=== PATIENT | male | born 1960 | race Caucasian/White ===

== ENCOUNTER 2018-08-28 01:49 | Outpatient (RCR) | payer OTHER, SELFPAY ==
[2018-08-12 11:58] LABS: Abs Immature Grans 0.06 k/cumm (0.0-0.09); Absolute Basophil Count 0.02 k/cumm (0.0-0.2); Absolute Eosinophil Count 0.11 k/cumm (0.0-0.7); Absolute Lymphocyte Count 1.35 k/cumm (1.2-3.4); Absolute Neutrophil Count 4.97 k/cumm (1.2-6.7); Basophils % 0.3; Eosinophils % 1.6; HCT 34.6 % (40.0-50.0); HGB 10.3 g/dL (13.5-17.5); Immature Grans % 0.9; Lymphocytes % 19.5; Mean Corp. HGB Concentration 29.8 g/dL (32.0-36.0); Mean Corpuscular Hemoglobin 26.9 pg (27.0-33.0); Mean Corpuscular Volume 90.3 fL (80-95); Mean Platelet Volume 10.4 fL (8.0-11.0); Monocytes % 5.8; Neutrophils % 71.9; Platelet Count 142 x1000/uL (130-400); RBC 3.83 m/cumm (4.50-6.00); RBC Distribution Width 17.4 % (11.8-14.1); White Blood Cell Count 6.91 k/cumm (4.4-10.8)
[2018-08-12] MEDS: Normal Saline Flush 10 ML SYR IVP (11:58)
[2018-08-12] MEDS: Heparin 500 UNITS/5 ML SYRINGE IV (11:59)
[2018-08-12 12:06] LABS: ALT 28 U/L (12-78); AST 18 U/L (15-37); Alkaline Phosphatase 93 U/L (46-116); Anion Gap 10.5 mmol/L (3-11); BUN 10 mg/dL (7-18); Bilirubin, Total 0.3 mg/dL (0.2-1.0); CO2 28.5 mmol/L (21.0-32.0); Calcium 8.9 mg/dL (8.5-10.1); Chloride 101 mmol/L (98-107); Glucose 141 mg/dL (70-100); Magnesium 1.8 mg/dL (1.8-2.4); Potassium 3.7 mmol/L (3.5-5.1); Sodium 140 mmol/L (136-145)
[2018-08-13 15:05] LABS: CEA 3.3 ng/ml
[2018-08-14 11:49] LABS: CA 19-9 1236 U/mL (<35)
[2018-08-28] MEDS: Normal Saline Flush 10 ML SYR IVP (07:18)
[2018-08-28 07:36] LABS: Abs Immature Grans 0.31 k/cumm (0.0-0.09); HCT 35.5 % (40.0-50.0); HGB 10.9 g/dL (13.5-17.5); Mean Corp. HGB Concentration 30.7 g/dL (32.0-36.0); Mean Corpuscular Hemoglobin 26.8 pg (27.0-33.0); Mean Corpuscular Volume 87.2 fL (80-95); Mean Platelet Volume 10.4 fL (8.0-11.0); Platelet Count 185 x1000/uL (130-400); RBC 4.07 m/cumm (4.50-6.00); RBC Distribution Width 17.2 % (11.8-14.1); White Blood Cell Count 9.42 k/cumm (4.4-10.8)
[2018-08-28 07:47] LABS: ALT 37 U/L (12-78); AST 19 U/L (15-37); Alkaline Phosphatase 101 U/L (46-116); Anion Gap 15.3 mmol/L (3-11); BUN 20 mg/dL (7-18); Bilirubin, Total 0.4 mg/dL (0.2-1.0); CO2 24.7 mmol/L (21.0-32.0); CREATININE 0.96 mg/dL (0.70-1.30); Calcium 9.1 mg/dL (8.5-10.1); Chloride 98 mmol/L (98-107); Glucose 359 mg/dL (70-100); Sodium 138 mmol/L (136-145)
[2018-08-28 07:53] LABS: Absolute Lymphocyte Count 1.22 k/cumm (1.2-3.4); Absolute Monocyte Count 0.28 k/cumm (0.11-0.7); Absolute Neutrophil Count 7.72 k/cumm (1.2-6.7); Anisocytosis 1+; Atypical Lymphocytes % 2; Diff Comment Manual Differential; Polychromasia Present
[2018-08-28 07:54] LABS: Poikilocytes 1+
[2018-08-28 09:18] LABS: Magnesium 1.6 mg/dL (1.8-2.4)
[2018-08-31 11:42] LABS: CEA 2.9 ng/ml
[2018-08-31 13:34] LABS: CA 19-9 887 U/mL (<35)
== END 2018-08-30 23:59 | disposition home or self-care (01) ==
LOC: INF 01:49
PROVIDERS: PCP Nurse Practitioner Primary Care; Visit Provider Internal Medicine Hematology & Oncology
DX: C25.9 Malignant neoplasm of pancreas, unspecified (principal); C78.7 Secondary malignant neoplasm of liver and intrahepatic bile duct; Z45.2 Encounter for adjustment and management of vascular access device
CPT/HCPCS: 36591; 80053; 82378; 83735; 85025; 86301

== ENCOUNTER 2018-09-29 01:13 | Outpatient (RCR) | payer OTHER, SELFPAY ==
[2018-09-10] MEDS: Normal Saline Flush 10 ML SYR IVP (07:30)
[2018-09-10 07:59] LABS: Abs Immature Grans 0.07 k/cumm (0.0-0.09); Absolute Basophil Count 0.02 k/cumm (0.0-0.2); Absolute Monocyte Count 0.22 k/cumm (0.11-0.7); Absolute Neutrophil Count 5.57 k/cumm (1.2-6.7); Basophils % 0.3; HCT 35.8 % (40.0-50.0); HGB 10.8 g/dL (13.5-17.5); Mean Corp. HGB Concentration 30.2 g/dL (32.0-36.0); Mean Corpuscular Hemoglobin 26.7 pg (27.0-33.0); Mean Corpuscular Volume 88.4 fL (80-95); Mean Platelet Volume 10.7 fL (8.0-11.0); Monocytes % 3.3; Neutrophils % 83.4; Platelet Count 139 x1000/uL (130-400); RBC 4.05 m/cumm (4.50-6.00); RBC Distribution Width 17.8 % (11.8-14.1); White Blood Cell Count 6.68 k/cumm (4.4-10.8)
[2018-09-10 08:10] LABS: ALT 37 U/L (12-78); AST 21 U/L (15-37); Albumin 3.8 g/dL (3.4-5.0); Alkaline Phosphatase 95 U/L (46-116); Anion Gap 13.5 mmol/L (3-11); BUN 15 mg/dL (7-18); Bilirubin, Total 0.5 mg/dL (0.2-1.0); CO2 25.5 mmol/L (21.0-32.0); Calcium 8.7 mg/dL (8.5-10.1); Chloride 99 mmol/L (98-107); Glucose 431 mg/dL (70-100); Potassium 4.2 mmol/L (3.5-5.1); Sodium 138 mmol/L (136-145); Total Protein 7.6 g/dL (6.4-8.2)
[2018-09-10 10:17] LABS: Magnesium 1.7 mg/dL (1.8-2.4)
[2018-09-11 11:37] LABS: CA 19-9 560 U/mL (<35)
[2018-09-11 12:22] LABS: CEA 2.3 ng/ml
[2018-09-25 08:11] LABS: Abs Immature Grans 0.07 k/cumm (0.0-0.09); Absolute Basophil Count 0.02 k/cumm (0.0-0.2); Absolute Eosinophil Count 0.02 k/cumm (0.0-0.7); Absolute Lymphocyte Count 0.73 k/cumm (1.2-3.4); Absolute Monocyte Count 0.24 k/cumm (0.11-0.7); Absolute Neutrophil Count 4.66 k/cumm (1.2-6.7); Basophils % 0.3; Eosinophils % 0.3; HCT 35.6 % (40.0-50.0); HGB 10.9 g/dL (13.5-17.5); Immature Grans % 1.2; Lymphocytes % 12.7; Mean Corp. HGB Concentration 30.6 g/dL (32.0-36.0); Mean Corpuscular Hemoglobin 26.7 pg (27.0-33.0); Mean Corpuscular Volume 87.3 fL (80-95); Mean Platelet Volume 9.8 fL (8.0-11.0); Monocytes % 4.2; Neutrophils % 81.3; Platelet Count 152 x1000/uL (130-400); RBC 4.08 m/cumm (4.50-6.00); RBC Distribution Width 17.9 % (11.8-14.1); White Blood Cell Count 5.74 k/cumm (4.4-10.8)
[2018-09-25] MEDS: Normal Saline Flush 10 ML SYR IVP (08:11)
[2018-09-25 08:28] LABS: ALT 37 U/L (12-78); AST 19 U/L (15-37); Albumin 3.9 g/dL (3.4-5.0); Alkaline Phosphatase 91 U/L (46-116); Anion Gap 13.5 mmol/L (3-11); BUN 19 mg/dL (7-18); Bilirubin, Total 0.3 mg/dL (0.2-1.0); CO2 24.5 mmol/L (21.0-32.0); CREATININE 0.92 mg/dL (0.70-1.30); Calcium 8.6 mg/dL (8.5-10.1); Chloride 101 mmol/L (98-107); Glucose 345 mg/dL (70-100); Potassium 4.2 mmol/L (3.5-5.1); Sodium 139 mmol/L (136-145); Total Protein 7.6 g/dL (6.4-8.2)
[2018-09-25 08:36] LABS: Magnesium 1.5 mg/dL (1.8-2.4)
[2018-09-28 09:53] LABS: CEA 2.1 ng/ml
[2018-09-28 10:38] LABS: CA 19-9 511 U/mL (<35)
== END 2018-09-29 23:59 | disposition home or self-care (01) ==
LOC: INF 01:13
PROVIDERS: PCP Nurse Practitioner Primary Care; Visit Provider Internal Medicine Hematology & Oncology
DX: C25.9 Malignant neoplasm of pancreas, unspecified (principal); C78.7 Secondary malignant neoplasm of liver and intrahepatic bile duct; Z45.2 Encounter for adjustment and management of vascular access device
CPT/HCPCS: 36591; 80053; 82378; 83735; 85025; 86301

== ENCOUNTER 2018-10-22 01:59 | Outpatient (RCR) | payer OTHER, SELFPAY ==
[2018-10-12 07:56] LABS: Abs Immature Grans 0.28 k/cumm (0.0-0.09); HCT 35.8 % (40.0-50.0); HGB 10.8 g/dL (13.5-17.5); Mean Corp. HGB Concentration 30.2 g/dL (32.0-36.0); Mean Corpuscular Hemoglobin 26.9 pg (27.0-33.0); Mean Corpuscular Volume 89.3 fL (80-95); Mean Platelet Volume 10.2 fL (8.0-11.0); Platelet Count 123 x1000/uL (130-400); RBC 4.01 m/cumm (4.50-6.00); RBC Distribution Width 18.4 % (11.8-14.1); White Blood Cell Count 7.01 k/cumm (4.4-10.8)
[2018-10-12 08:07] LABS: ALT 54 U/L (12-78); AST 33 U/L (15-37); Alkaline Phosphatase 90 U/L (46-116); Anion Gap 14.2 mmol/L (3-11); BUN 14 mg/dL (7-18); Bilirubin, Total 0.4 mg/dL (0.2-1.0); CO2 24.8 mmol/L (21.0-32.0); CREATININE 1.01 mg/dL (0.70-1.30); Chloride 99 mmol/L (98-107); Glucose 417 mg/dL (70-100); Magnesium 1.3 mg/dL (1.8-2.4); Sodium 138 mmol/L (136-145); Total Protein 7.7 g/dL (6.4-8.2)
[2018-10-12 08:37] LABS: Absolute Neutrophil Count 5.89 k/cumm (1.2-6.7)
[2018-10-12 08:38] LABS: Absolute Lymphocyte Count 0.77 k/cumm (1.2-3.4); Absolute Monocyte Count 0.14 k/cumm (0.11-0.7); Anisocytosis 2+; Atypical Lymphocytes % 2; Diff Comment Manual Differential; Hypochromasia 1+; Poikilocytes 2+
[2018-10-14 12:35] LABS: CA 19-9 1335 U/mL (<35)
[2018-10-22] MEDS: Normal Saline Flush 10 ML SYR IVP (14:30)
[2018-10-22] MEDS: Heparin 500 UNITS/5 ML SYRINGE IV (14:30)
[2018-10-22 15:09] LABS: Abs Immature Grans 0.17 k/cumm (0.0-0.09); Absolute Basophil Count 0.03 k/cumm (0.0-0.2); Absolute Eosinophil Count 0.08 k/cumm (0.0-0.7); Absolute Lymphocyte Count 1.61 k/cumm (1.2-3.4); Absolute Monocyte Count 0.85 k/cumm (0.11-0.7); Absolute Neutrophil Count 8.05 k/cumm (1.2-6.7); Basophils % 0.3; Eosinophils % 0.7; HCT 34.4 % (40.0-50.0); HGB 10.8 g/dL (13.5-17.5); Immature Grans % 1.6; Lymphocytes % 14.9; Mean Corp. HGB Concentration 31.4 g/dL (32.0-36.0); Mean Corpuscular Hemoglobin 27.6 pg (27.0-33.0); Mean Corpuscular Volume 87.8 fL (80-95); Mean Platelet Volume 10.8 fL (8.0-11.0); Monocytes % 7.9; Neutrophils % 74.6; Platelet Count 126 x1000/uL (130-400); RBC 3.92 m/cumm (4.50-6.00); RBC Distribution Width 19.3 % (11.8-14.1); White Blood Cell Count 10.79 k/cumm (4.4-10.8)
[2018-10-22 15:17] LABS: ALT 48 U/L (12-78); AST 23 U/L (15-37); Albumin 3.9 g/dL (3.4-5.0); Alkaline Phosphatase 120 U/L (46-116); Anion Gap 12.3 mmol/L (3-11); BUN 13 mg/dL (7-18); Bilirubin, Total 0.3 mg/dL (0.2-1.0); CO2 27.7 mmol/L (21.0-32.0); CREATININE 0.93 mg/dL (0.70-1.30); Calcium 8.7 mg/dL (8.5-10.1); Chloride 98 mmol/L (98-107); Glucose 300 mg/dL (70-100); Magnesium 1.4 mg/dL (1.8-2.4); Potassium 3.7 mmol/L (3.5-5.1); Sodium 138 mmol/L (136-145); Total Protein 7.5 g/dL (6.4-8.2)
[2018-10-23 10:08] LABS: CEA 2.5 ng/ml
[2018-10-23 12:14] LABS: CA 19-9 2707 U/mL (<35)
== END 2018-10-30 23:59 | disposition home or self-care (01) ==
LOC: INF 01:59
PROVIDERS: PCP Nurse Practitioner Primary Care; Visit Provider Internal Medicine Hematology & Oncology
DX: C25.9 Malignant neoplasm of pancreas, unspecified (principal); C78.7 Secondary malignant neoplasm of liver and intrahepatic bile duct; Z45.2 Encounter for adjustment and management of vascular access device
CPT/HCPCS: 36591; 80053; 82378; 83735; 85025; 86301

== ENCOUNTER 2018-11-21 16:47 | Inpatient (IN) | payer OTHER, SELFPAY ==
[2018-11-21 16:52] VITALS: BP 130/67; PULSE 123; RESP 16; TEMP 36.7; O2SAT 95
--- NOTE | 2018-11-21 17:03 | DI.RAD_ITS ---
SYMPTOM/DIAGNOSIS: TACHYCARDIA, DRY HEAVING PORTABLE CHEST: There are no prior comparison exams. The lungs are not well inflated but appear grossly clear. There is a portal overlying the right chest with the tip projecting in the upper right atrium. The heart size is normal. IMPRESSION: No acute abnormality
--- NOTE | 2018-11-21 17:12 | W.ED.GENAD ---
Discharge Plan Disposition Patient Disposition: [facility] INPATIENT Condition: Improving Discharge Details Chief Complaint: Dizzy/Sync Clinical Impression: Sepsis, Bacteremia, Dental infection, Acute hypokalemia, Hypomagnesemia, Immunosuppression due to drug therapy Primary Care Provider: Rosalva Ingram ED Provider: Onur Arce Home Meds and New Rx's Prescriptions: No Action enoxaparin [Lovenox] 80 mg/0.8 mL Syringe 75 mg subcut BID RF: 0 metformin 500 mg Tablet 500 mg PO BID RF: 0 atorvastatin 80 mg Tablet 80 mg PO DAILY RF: 0 ondansetron HCl 2 mg/mL Solution 4 mg RF: 0 omeprazole 40 mg Capsule,Delayed Release(Dr/Ec) 40 mg PO BID RF: 0 amlodipine 10 mg Tablet 10 mg PO DAILY RF: 0 hydrochlorothiazide 25 mg Tablet 25 mg PO DAILY RF: 0 fluoxetine 20 mg Capsule 20 mg PO DAILY RF: 0 lactobacillus combo #5 150 mg (2 billion cell) Tablet,Delayed Release (Dr/Ec) 150 mg PO DAILY RF: 0 Lantus U-100 Insulin 100 unit/mL Solution 75 unit SUBCUT BID RF: 0 Novolog U-100 Insulin aspart 100 unit/mL Solution RF: 0 lorazepam 1 mg Tablet 1 mg PO Q4H PRN PRNRF: 0 docusate sodium 100 mg Capsule 100 mg PO BID RF: 0 loratadine 10 mg Tablet 10 mg PO DAILY RF: 0 prochlorperazine maleate 5 mg Tablet RF: 0 Medical Decision Making This is a pleasant 58-year-old male with a past medical history of stage IV pancreatic cancer with metastases to the bones, who recently had a lack of improvement with his current chemotherapy medication, and was thus switched to a new chemotherapy 3 days ago, forgemcitabine and abraxane. Since then he has had dry heaving, nausea, and malaise. He has not been eating and drinking well. He denies any fever at home. Of note he was recently diagnosed with a dental abscess and started on amoxicillin a few days ago. He has been taking this as directed. He denies any cough, dysuria, abdominal pain, chest pain or chest heaviness. Physical exam is notably unremarkable, no significant abnormalities aside for dry mucous membranes, and tachycardia. Laboratory work-up has returned and demonstrates no white count but a notably elevated lactate at 2.4, mild left shift, no signs of neutropenia. Potassium is slightly at 3.2, renal function stable, magnesium low at 1.2. Troponin EKG benign. Urinalysis negative for leuk esterase and negative for nitrates. No clear evidence of source from work-up, chest x-ray negative for pneumonia. Here the patient is febrile. With his immunosuppression from chemotherapy, his notably elevated lactate, his fever and tachycardia I feel is sepsis is most likely secondary to bacteremia, potentially from his initially infected tooth. No evidence of abscess at this time. Currently will start on vancomycin and Zosyn for treatment of bacteremia, blood cultures have been performed. Patient will need admission for further evaluation and IV antibiotics. I discussed the case with Dr. evangelista, he agrees with the assessment and plan and has asked that we do place brief admission orders. I have extensively reviewed the treatment plan with the patient. I have addressed all patient concerns at this time. I have also discussed the plan with the admitting physician and they agree with the current assessment and plan and have agreed to assume responsibility for the patient. All parties demonstrate verbal understanding and agreement with our assessment and plan at this time. FINDINGS: Right-sided Port-A-Cath in good position. The lung vitale are clear bilaterally. No focal pulmonary consolidation is present. The cardiac silhouette is within normal limits. The costophrenic angles are sharp. The bony structures appear unremarkable. IMPRESSION: No evidence of acute cardiopulmonary disease. Dictated and Authenticated by: Klever Carmona MD. Ordering:KAPIL Mohr MD EKG 16: 55 Rate 124, intervals normal, sinus tachycardia, no significant ST elevations or depressions, no T wave inversions. No significant Q waves. HPI General Date/Time Provider Initiated Documentation: 11/21/18 16:47. HPI Narrative: This is a 58-year-old male with a past medical history of diabetes, pancreatic and liver cancer, previous blood clots on Lovenox, who presents today for evaluation of dry heaving, and what he states his dehydration. He started a new chemotherapy 3 days ago, forgemcitabine and abraxane, and since then has had nausea and dry heaving but no vomiting. He has had no diarrhea. He has been eating and drinking less because of his malaise. He denies any abdominal or chest pain. He states that his general feelings of malaise have worsened over the last 24 hours. He denies any history of [place], or stroke. He does have a history of PE for which he takes his Lovenox. He denies any chest pressure, chest heaviness, arm neck or shoulder pain. He denies any numbness tingling. He states that he mainly feels dehydrated. He has no other complaints at this time. He is a poor historian. Also of note the patient later brought up that he was recently started on amoxicillin a few days ago for suspected infected tooth in the right lower molar Related Data Home Medications Medication Instructions Recorded Confirmed amlodipine 10 mg PO DAILY 11/21/18 11/21/18 atorvastatin 80 mg PO DAILY 11/21/18 11/21/18 docusate sodium 100 mg PO BID 11/21/18 11/21/18 enoxaparin [Lovenox] 75 mg SUBCUT BID 11/21/18 11/21/18 fluoxetine 20 mg PO DAILY 11/21/18 11/21/18 hydrochlorothiazide 25 mg PO DAILY 11/21/18 11/21/18 insulin aspart U-100 [Novolog 11/21/18 U-100 Insulin aspart] insulin glargine [Lantus U-100 75 unit SUBCUT BID 11/21/18 11/21/18 Insulin] lactobacillus combo #5 150 mg PO DAILY 11/21/18 11/21/18 loratadine 10 mg PO DAILY 11/21/18 11/21/18 lorazepam 1 mg PO Q4H PRN PRN 11/21/18 11/21/18 metformin 500 mg PO BID 11/21/18 11/21/18 omeprazole 40 mg PO BID 11/21/18 11/21/18 ondansetron HCl 4 mg 11/21/18 prochlorperazine maleate 11/21/18 Allergies Allergy/AdvReac Type Severity Reaction Status Date / Time No Known Allergies Allergy Unverified 11/21/18 16:56 General Stated Complaint: Dizzy/Sync JUMA: 2 Review of Systems Review of Systems All systems reviewed & are unremarkable except as noted in HPI and below PFSH Medical History Liver cancer (Acute) Pancreatic cancer (Acute) Diabetes (Chronic) Social History Do you feel safe at home: Yes Do you feel safe in your relationship?: Yes Exam Narrative Exam Narrative: 1.Const: Well-nourished, Well-developed, appearing stated age 2.Eyes: PERRL, no conjunctival injection, and symmetrical lids. 3.ENT: Atraumatic external nose and ears. Notably dry MM. Neck: Symmetric, trachea midline, No thyromegaly. Dentition demonstrates mild dental caries in the right lower molars, no evidence of. Dental abscess. 4.CVS: +S1/S2, No murmurs or gallops. Peripheral pulses 2+ and equal in all extremities. Brisk capillary refill in all extremities. 5.RESP: Unlabored respiratory effort. Clear to auscultation bilaterally. No wheezes rales or rhonchi 6.GI: Soft, Nontender/Nondistended, No hepatosplenomegaly. No guarding or rebound. 7.MSK: Normocephalic/Atraumatic, Extremities w/o deformity or ttp No cyanosis or clubbing, Normal movement of all extremities 8.Skin: Warm, Dry. No rashes or lesions. 9.Neuro: biopharmaceutical rep II-XII grossly intact. Sensation grossly intact, no focal neurologic deficits. 10.Psych: (AAO) x3. Appropriate mood and affect Course Vital Signs Temperature 36.7 C 11/21/18 16:52 Pulse 123 H 11/21/18 16:52 Respiratory Rate 16 11/21/18 16:52 Blood Pressure 130/67 11/21/18 16:52 Pulse Oximetry 95 11/21/18 16:52 Temperature 36.7 C 11/21/18 16:52 Temperature Source Temporal Artery Scan 11/21/18 16:52 Pulse 123 H 11/21/18 16:52 Respiratory Rate 16 11/21/18 16:52 Respiratory Effort 11/21/18 16:55 Blood Pressure 130/67 11/21/18 16:52 Blood Pressure Position Supine 11/21/18 16:52 Pulse Oximetry 95 11/21/18 16:52 Oxygen Delivery Method Room Air 11/21/18 16:52 Oxygen Flow Rate 0 11/21/18 16:52
[2018-11-21 17:18] VITALS: BP 138/84; PULSE 88; RESP 18; TEMP 36.7; O2SAT 98
[2018-11-21 17:18] LABS: Abs Immature Grans 0.03 k/cumm (0.0-0.09); Absolute Basophil Count 0.01 k/cumm (0.0-0.2); Absolute Eosinophil Count 0.01 k/cumm (0.0-0.7); Absolute Lymphocyte Count 0.57 k/cumm (1.2-3.4); Absolute Monocyte Count 0.07 k/cumm (0.11-0.7); Absolute Neutrophil Count 9.61 k/cumm (1.2-6.7); Basophils % 0.1; Eosinophils % 0.1; HCT 28.7 % (40.0-50.0); HGB 9.2 g/dL (13.5-17.5); Immature Grans % 0.3; Lymphocytes % 5.5; Mean Corp. HGB Concentration 32.1 g/dL (32.0-36.0); Mean Corpuscular Hemoglobin 28.7 pg (27.0-33.0); Mean Corpuscular Volume 89.4 fL (80-95); Mean Platelet Volume 9.7 fL (8.0-11.0); Monocytes % 0.7; Neutrophils % 93.3; RBC 3.21 m/cumm (4.50-6.00)
[2018-11-21] MEDS: Normal Saline 1,000 ML 1000 ML IV ×2 (17:20→18:55)
[2018-11-21] MEDS: Ondansetron 4 MG/2 ML VIAL IVP (17:20)
[2018-11-21 17:23] VITALS: TEMP 38.7
[2018-11-21 17:32] LABS: INR 1.1 (0.9-1.1); PTT Activated 72.2 sec (21.0-31.4); Prothrombin Time 11.4 sec (9.3-11.0)
[2018-11-21 17:39] VITALS: TEMP 38.7
[2018-11-21] MEDS: Acetaminophen 500 MG TAB 1000 MG PO (17:39)
[2018-11-21 17:43] LABS: ALT 55 U/L (12-78); AST 38 U/L (15-37); Albumin 3.4 g/dL (3.4-5.0); Alkaline Phosphatase 75 U/L (46-116); Anion Gap 13.9 mmol/L (3-11); BUN 13 mg/dL (7-18); Bilirubin, Total 0.7 mg/dL (0.2-1.0); CO2 24.1 mmol/L (21.0-32.0); CREATININE 0.82 mg/dL (0.70-1.30); Calcium 8.2 mg/dL (8.5-10.1); Chloride 99 mmol/L (98-107); Glucose 283 mg/dL (70-100); Lipase 33 U/L (73-393); NT-proBNP 370 pg/mL; Potassium 3.2 mmol/L (3.5-5.1); Sodium 137 mmol/L (136-145); TSH (W/Ref FT4) 1.77 uIU/mL (0.358-3.74); Total Protein 7.2 g/dL (6.4-8.2)
[2018-11-21 17:44] LABS: Troponin I < 0.05 ng/mL (0.00-0.06)
[2018-11-21 17:45] LABS: Anisocytosis 2+; Diff Comment RBC Morph Reviewed; Platelet Count 88 x1000/uL (130-400)
--- NOTE | 2018-11-21 17:53 | DI.VRAD_ITS ---
EXAM: XR Chest, 1 View EXAM DATE/TIME: 11/21/2018 5:04 PM CLINICAL HISTORY: 58 years old, male; Shortness of breath TECHNIQUE: Imaging protocol: XR of the chest, 1 view. COMPARISON: No relevant prior studies available. FINDINGS: Right-sided Port-A-Cath in good position. The lung vitale are clear bilaterally. No focal pulmonary consolidation is present. The cardiac silhouette is within normal limits. The costophrenic angles are sharp. The bony structures appear unremarkable. IMPRESSION: No evidence of acute cardiopulmonary disease. Dictated and Authenticated by: Klever Carmona MD. Ordering:KAPIL Mohr MD
[2018-11-21 17:56] LABS: Lactate-non-spesis 2.4 mmol/l (0.6-1.4)
[2018-11-21] MEDS: POTASSIUM CHLORIDE 20 MEQ/100 ML BAG 50 MEQ IVPB (18:56)
[2018-11-21 18:57] LABS: Bilirubin Small (Negative); Blood Trace-intact (Negative); Clarity Clear; Glucose 500 mg/dL (Negative); Ketones Trace mg/dL (Negative); Leukocyte Esterase Negative (Negative); Nitrite Negative (Negative); Urobilinogen 0.2 EU/dL (Up TO 0.2)
[2018-11-21 18:59] LABS: Magnesium 1.2 mg/dL (1.8-2.4)
[2018-11-21 19:11] LABS: Bacteria Rare HPF (Negative); C & S Indicated? Yes; Casts Negative LPF (Negative); Crystals Negative HPF (Negative); Epithelial Cells Few HPF (Negative); Mucus Moderate (Negative); RBC 0-2 (0-2)
[2018-11-21 20:20] VITALS: BP 110/71; PULSE 84; RESP 16; TEMP 37; O2SAT 99
[2018-11-21] MEDS: PIPERACILLIN/TAZO 3.375 GM in Normal Saline 50 ML IVPB (21:01)
[2018-11-21] MEDS: MAGNESIUM SULFATE 1 GM/100 ML BAG IV ×2 (22:14→23:04)
[2018-11-21] MEDS: Acetaminophen 325 MG TAB PO (22:14)
[2018-11-21] MEDS: Potassium Chloride 20 MEQ TABCR 40 MEQ PO (22:15)
--- NOTE | 2018-11-21 22:29 | HPE_ITS ---
Date of service: 11/21/18 Time of Service: 22:01 Assessment and Plan (1) Sepsis: Current visit: Yes Status: Acute Patient presents with high fever and some soft blood pressures. There is an obvious concern for bacteremia because of his relative immune compromised state from active chemotherapy. Blood cultures are pending. Empirically covered with Zosyn and vancomycin pending blood culture results. Patient has stabilized with IV fluids. Will continue on IV fluids and monitor for signs of further sepsis with frequent vital signs. At this point appears to be stable enough to be monitored on MedSurg. (2) Nausea & vomiting: Current visit: Yes Status: Acute Anorexia with nausea likely secondary to chemotherapy. He states his been started on a new chemotherapeutic agent recently because of the discovery of more widespread metastasis. Will give as needed antiemetics. (3) Dental abscess: Current visit: Yes Status: Acute He states he has a dental abscess from a cracked tooth related to intubation for a procedure done at [facility] in [facility]. He is been on amoxicillin for about 4 days now. There is not much on exam to suggest any kind of severe infection there. At this point this is the only real source for his potential bacteremia. Continue with empiric antibiotic coverage (4) Tali-Aguilar tear: Current visit: Yes Status: Resolved He states he had a severe upper GI bleed requiring transfusion, hemoglobin as low as 4.8, per patient. He is on PPI therapy. No evidence of bleeding at this time. (5) Diabetes: Current visit: Yes Status: Chronic Poorly controlled diabetic. He is on high-dose Lantus insulin. We will put him on resistant sliding scale coverage. He states he takes his much as 100 units of NovoLog when his blood sugars are out of control. (6) Liver cancer: Current visit: Yes Status: Acute Pancreatic cancer metastatic to his liver. Liver function tests are not all that abnormal. Overall synthetic function and is good. No evidence of overt liver failure at this time. (7) Pancreatic cancer: Current visit: Yes Status: Acute Diagnosed with pancreatic Cancer in April 2018. A nodule was discovered and further work-up revealed it had already spread. He is on second line chemotherapeutic agents. Stage IV pancreatic cancer with a overall very poor prognosis but his overall function and condition is good at this time. He is a full code. He has not been evaluated by palliative care. (8) Hypokalemia: Current visit: Yes Status: Acute Potassium low at 3.2. He received IV replacement. We will see if he can take p.o. replacement as well. Add potassium to his IV fluids. Recheck level in the a.m. (9) Hypomagnesemia: Current visit: Yes Status: Acute Magnesium markedly low at 1.2. Will give a 4 g IV bolus. History of Present Illness Chief Complaint: Fever, malaise, dental abscess Narrative: This is a 58-year-old male diagnosed with pancreatic cancer in April 2018. He is currently on chemotherapy through [facility], Dr. Noel. Patient notes that at 9 PM on 11/20/2018 he began to feel ill with nausea, stomachache, and fever. He presents to the emergency room this evening with a generalized feeling of not well. He had a temp recorded of 38.7, normal white count, no neutropenia. Blood pressures were a bit soft. He responded to a fluid bolus. Blood cultures were obtained, he was empirically started on vancomycin and Zosyn for presumed sepsis syndrome. Because he was recently diagnosed with a dental abscess and had been on amoxicillin it is presumed the source is from his dental abscess. He is admitted to [facility] for further IV antibiotic therapy and diagnostic work-up. Review of Systems Review of Systems States he felt well up until 9 PM on 11/20/2018 when he developed nausea and malaise Constitutional Denies excessive sweating, Denies frequent falls, Denies headache(s), Reports malaise, Reports poor appetite and Reports weakness Eyes Denies change in vision ENT Denies dizziness, Denies headache(s) and Denies throat swelling Comments: Describes postnasal drip Cardiovascular Denies chest pain, Denies edema, Denies dyspnea, Denies dyspnea on exertion and Denies orthopnea Respiratory Denies change in phlegm color, Denies cough, Denies excessive phlegm production, Denies dyspnea and Denies dyspnea on exertion Gastrointestinal Denies change in bowel habits, Denies coffee ground emesis, Denies diarrhea, Reports nausea and Denies vomiting Genitourinary Denies urinary frequency and Denies urinary incontinence Musculoskeletal Denies back pain and Denies deformity Integumentary/Breasts Denies rash, Denies sores and Denies wounds Neurologic Denies confusion, Denies dizziness, Denies frequent falls, Denies headache(s), Denies focal weakness, Denies sensory deficit and Reports weakness Psychiatric Denies confusion, Denies depression and Denies suicidal ideation Endocrine Denies cold intolerance and Denies excessive sweating Hematologic/Lymphatic Denies easy bleeding and Denies easy bruising Allergic/Immunologic Denies urticaria, Reports seasonal rhinorrhea and Denies throat swelling PFSH Medical History Hypomagnesemia (Acute) Hypokalemia (Acute) Sepsis (Acute) Dental abscess (Acute) Nausea & vomiting (Acute) Tali-Aguilar tear (Resolved ~07/2018) Diabetes (Chronic) Liver cancer (Acute) Pancreatic cancer (Acute ~04/2018) Surgical History History of lumbar laminectomy (Resolved ~04/2017) Social History Smoking/Tobacco Use Status: Former Tobacco Use Quit Date: 12/31/16 Pack-years: 5 Alcohol Intake: former Household members: spouse Do you feel safe at home: Yes Do you feel safe in your relationship?: Yes Meds Home Medications Medication Instructions Recorded Confirmed Type amlodipine 10 mg PO DAILY 11/21/18 11/21/18 History atorvastatin 80 mg PO DAILY 11/21/18 11/21/18 History docusate sodium 100 mg PO BID 11/21/18 11/21/18 History enoxaparin [Lovenox] 75 mg SUBCUT BID 11/21/18 11/21/18 History fluoxetine 20 mg PO DAILY 11/21/18 11/21/18 History hydrochlorothiazide 25 mg PO DAILY 11/21/18 11/21/18 History insulin aspart U-100 [Novolog 11/21/18 History U-100 Insulin aspart] insulin glargine [Lantus U-100 75 unit SUBCUT BID 11/21/18 11/21/18 History Insulin] lactobacillus combo #5 150 mg PO DAILY 11/21/18 11/21/18 History loratadine 10 mg PO DAILY 11/21/18 11/21/18 History lorazepam 1 mg PO Q4H PRN PRN 11/21/18 11/21/18 History metformin 500 mg PO BID 11/21/18 11/21/18 History omeprazole 40 mg PO BID 11/21/18 11/21/18 History ondansetron HCl 4 mg 11/21/18 History prochlorperazine maleate 11/21/18 History Allergies Allergy/AdvReac Type Severity Reaction Status Date / Time No Known Allergies Allergy Unverified 11/21/18 16:56 Exam Narrative Exam Narrative: Generally well-appearing. He can sit up on the side of the bed. He greets me appropriately. He displays no respiratory difficulty or obvious signs of discomfort. Const General: cooperative, comfortable and no acute distress Orientation: alert, awake and oriented x3 HENMT Head: normal to inspection Ears: hearing grossly normal bilaterally General nose exam: external nose normal Face and sinus: face symmetric Mouth: oropharynx normal Teeth and gingiva: abnormal tooth or associated gingiva (Right lower molar is missing. ), fair dentition (Multiple fillings) and other (No obvious abscess) Eyes General: appearance normal, both eyes and all related structures Neck Neck: normal visual inspection Thyroid: symmetrical Carotids: normal carotid upstroke Lymphatic: no lymphadenopathy noted Chest Chest: normal inspection of the chest Resp Effort & Inspection: normal respiratory effort Auscultation: clear to auscultation bilaterally Cardio Jugular venous pressure: no JVD Rate: regular rate Rhythm: regular rhythm Heart Sounds: S1 normal, S2 normal and no murmurs GI Inspection: normal to inspection and obesity Palpation: soft, no hepatosplenomegaly and nontender Back/Spine/Pelvis Back: no CVA tenderness Cervical Spine: normal cervical lordosis Thoracic/Lumbar Spine: thoracic and lumbar spine normal to inspection and surgical scar(s) present (Lumbar laminectomy) Skin General skin exam: no rashes or lesions noted Wounds: no wounds Neuro General: alert, awake, oriented x3, moves all extremities and no focal motor deficits Cranial Nerves: CN's II-XI intact bilaterally Cognition: normal cognition Speech: speech normal Extrem General: normal to inspection and no clubbing, cyanosis or edema Psych Appearance: grossly normal Mental Status: mental status grossly normal Speech and Movement: speech and movement normal Mood: congruent mood Affect: normal affect Attitude: cooperative Thought Process: normal Thought Content: normal Insight: insight good Results Imaging Chest x-ray: report reviewed (No acute abnormality) Labs : 11/21/18 17:05 11/21/18 17:05 Laboratory Results - last 24 hr 11/21/18 11/21/18 11/21/18 17:05 17:05 17:05 WBC 10.30 RBC 3.21 L Hgb 9.2 L Hct 28.7 L MCV 89.4 MCH 28.7 MCHC 32.1 RDW 19.0 H Plt Count 88 L MPV 9.7 Immature Gran % 0.3 Neutrophils % 93.3 Lymphocytes % 5.5 Monocytes % 0.7 Eosinophils % 0.1 Basophils % 0.1 Absolute Neutrophils 9.61 H Absolute Lymphocytes 0.57 L Absolute Monocytes 0.07 L Absolute Eosinophils 0.01 Absolute Basophils 0.01 Differential Comment Rbc morph reviewed RBC Morphology See below Anisocytosis 2+ PT 11.4 H INR 1.1 APTT 72.2 H Sodium 137 Potassium 3.2 L Chloride 99 Carbon Dioxide 24.1 Anion Gap 13.9 H BUN 13 Creatinine 0.82 Estimated GFR/1.73 m2 >= 60.00 Glucose 283 H Lactate Calcium 8.2 L Magnesium Total Bilirubin 0.7 AST 38 H ALT 55 Alkaline Phosphatase 75 Troponin I < 0.05 NT-Pro-B Natriuret Pep 370 H Total Protein 7.2 Albumin 3.4 Lipase 33 L TSH 1.77 Urine Color Urine Clarity Urine pH Ur Specific Stonewall Urine Protein Urine Ketones Urine Blood Urine Nitrite Urine Bilirubin Urine Urobilinogen Ur Leukocyte Esterase Urine RBC Urine WBC Ur Epithelial Cells Urine Crystals Urine Bacteria Urine Casts Urine Mucus Ur Culture Indicated? Urine Glucose 11/21/18 11/21/18 11/21/18 17:35 17:55 18:50 WBC RBC Hgb Hct MCV MCH MCHC RDW Plt Count MPV Immature Gran % Neutrophils % Lymphocytes % Monocytes % Eosinophils % Basophils % Absolute Neutrophils Absolute Lymphocytes Absolute Monocytes Absolute Eosinophils Absolute Basophils Differential Comment RBC Morphology Anisocytosis PT INR APTT Sodium Potassium Chloride Carbon Dioxide Anion Gap BUN Creatinine Estimated GFR/1.73 m2 Glucose Lactate 2.4 H Calcium Magnesium 1.2 L Total Bilirubin AST ALT Alkaline Phosphatase Troponin I NT-Pro-B Natriuret Pep Total Protein Albumin Lipase TSH Urine Color Radha Urine Clarity Clear Urine pH 6.0 Ur Specific Stonewall 1.020 Urine Protein 100 H Urine Ketones Trace H Urine Blood Trace-intact H Urine Nitrite Negative Urine Bilirubin Small H Urine Urobilinogen 0.2 Ur Leukocyte Esterase Negative Urine RBC 0-2 Urine WBC 5-10 Ur Epithelial Cells Few Urine Crystals Negative Urine Bacteria Rare Urine Casts Negative Urine Mucus Moderate Ur Culture Indicated? Yes Urine Glucose 500 H Last Vital Signs Temp 37.0 C 11/21/18 20:20 Pulse 84 11/21/18 20:20 Resp 16 11/21/18 20:20 BP 110/71 11/21/18 20:20 Pulse Ox 99 06/22/19 20:20
[2018-11-21] MEDS: POTASSIUM CHLORIDE/0.9% NACL 1,000 ML 100 MEQ IV (23:28)
[2018-11-21 23:44] VITALS: BP 105/69; PULSE 102; RESP 20; TEMP 36.1; O2SAT 96
[2018-11-22] MEDS: MAGNESIUM SULFATE 1 GM/100 ML BAG IV ×2 (00:05→00:57)
[2018-11-22] MEDS: LORazepam 1 MG TAB PO ×2 (00:57→17:01)
[2018-11-22] MEDS: PIPERACILLIN/TAZO 3.375 GM in Normal Saline 50 ML IVPB ×4 (02:02→20:13)
[2018-11-22 03:15] VITALS: BP 142/84; PULSE 67; RESP 16; TEMP 36.6; O2SAT 97
[2018-11-22 07:30] VITALS: BP 125/76; PULSE 100; RESP 18; TEMP 36.7; O2SAT 96
[2018-11-22 07:37] LABS: Abs Immature Grans 0.02 k/cumm (0.0-0.09); Absolute Basophil Count 0.01 k/cumm (0.0-0.2); Absolute Eosinophil Count 0.05 k/cumm (0.0-0.7); Absolute Lymphocyte Count 0.38 k/cumm (1.2-3.4); Absolute Monocyte Count 0.05 k/cumm (0.11-0.7); Basophils % 0.1; Eosinophils % 0.7; HGB 8.2 g/dL (13.5-17.5); Immature Grans % 0.3; Lymphocytes % 5.6; Mean Corp. HGB Concentration 31.5 g/dL (32.0-36.0); Mean Corpuscular Volume 91.9 fL (80-95); Mean Platelet Volume 10.6 fL (8.0-11.0); Monocytes % 0.7; Neutrophils % 92.6; RBC 2.83 m/cumm (4.50-6.00); White Blood Cell Count 6.82 k/cumm (4.4-10.8)
[2018-11-22 07:41] LABS: Anion Gap 12.1 mmol/L (3-11); BUN 10 mg/dL (7-18); CO2 24.9 mmol/L (21.0-32.0); CREATININE 0.73 mg/dL (0.70-1.30); Calcium 8.2 mg/dL (8.5-10.1); Chloride 103 mmol/L (98-107); Glucose 258 mg/dL (70-100); Potassium 3.8 mmol/L (3.5-5.1); Sodium 140 mmol/L (136-145)
[2018-11-22 07:48] LABS: Hemoglobin A1C 8.6 % (4.5-6.2)
[2018-11-22 07:52] LABS: Absolute Neutrophil Count 6.32 k/cumm (1.2-6.7)
[2018-11-22 07:54] LABS: Platelet Count 85 x1000/uL (130-400)
[2018-11-22 07:55] LABS: Diff Comment PLT Morph Reviewed
[2018-11-22 07:56] LABS: Anisocytosis 2+; Hypochromasia 1+
[2018-11-22] MEDS: Insulin Glargine 100 UNITS/ML UNIT 75 UNITS SC (08:24)
[2018-11-22 08:57] LABS: Lactate-non-spesis 1.2 mmol/l (0.6-1.4)
[2018-11-22] MEDS: Enoxaparin 80 MG/0.8 ML SYR 75 MG SC ×2 (09:08→20:12)
[2018-11-22] MEDS: MAGNESIUM SULFATE 1 GM/100 ML BAG IVPB (09:08)
[2018-11-22] MEDS: amLODIPine 10 MG TAB PO (09:09)
[2018-11-22] MEDS: Omeprazole 20 MG CAPCR 40 MG PO ×2 (09:09→20:12)
[2018-11-22] MEDS: Atorvastatin 40 MG TAB 80 MG PO (09:09)
[2018-11-22] MEDS: Docusate Sodium 100 MG CAP PO ×2 (09:10→20:13)
[2018-11-22] MEDS: Loratidine 10 MG TAB PO (09:10)
[2018-11-22] MEDS: Lactobacillus Acidophilus CAP 1 CAP PO (09:10)
[2018-11-22] MEDS: FLUoxetine 20 MG CAP PO (09:10)
[2018-11-22] MEDS: Insulin Aspart 300 UNITS/3 ML PEN SC (09:11)
[2018-11-22] MEDS: POTASSIUM CHLORIDE/0.9% NACL 1,000 ML 100 MEQ IV (10:19)
[2018-11-22] MEDS: VANCOMYCIN 2,000 MG in Normal Saline 500 ML 250 MG IVPB ×2 (10:46→21:00)
--- NOTE | 2018-11-22 10:49 | PHARADMIT ---
Addendum entered by Tiffani Gibbs 11/23/18 15:05: Pharmacy Note Subjective pt feeling better following antibiotics per morning report Objective HR-95 other VS okay h/h-7.9/25.7(down) weight-141.8kg(up) BG-259 Assessment vanco and zosyn changed to PO levofloxacin and metronidazole Plan possible discharge tomorrow if stable on PO abx Original Note: Admission Pharmacy Clinical Review BACTEREMIA Code Status Full Code Current Weight Wgt-137.5 kg Renally Cleared and Narrow Therapeutic Index Meds CrCl~111 mL/min Meds-OK QTc Value / Action Taken QTc-442 NA BP Control, Fever BP- 1042/84 Tmax-36.6C Electrolytes reviewed Na- 140 K+3.8 Mag-2.0 DVT Prophylaxis Lovenox 75mg BID (Low Plts 85 RPh will tonia GARCIA) Opiate Usage / Scheduled Bowel Regimen Ordered No Yes Plt/SCr for Heparin / Enoxaparin Plts-85 SCr-0.73 INR for Warfarin inr-1.1 H/H stable, WBC/Bands H&H- 8.2/26.0 WBC- 6.82 Antibiotic appropriateness Vancomycin, Zosyn Cultures and Sensitivities Blood & Urine- Pending Surgical ABX d/c within 24 hr NA DM control / Insulin Dosing BG-258 Aspart, Glargine Heart Failure (Check EF%) (QUIRINO's, B-Block, Diuretics) Norvasc, IV to PO Switch NO Home Meds Reviewed Yes Home Meds Not Ordered HCTZ, Metformin, Zofran, COMPAZINE Comments
[2018-11-22 11:15] VITALS: BP 130/70; PULSE 91; RESP 18; TEMP 37; O2SAT 97
--- NOTE | 2018-11-22 11:56 | PGE_ITS ---
Date of Service Date of service: 11/22/18 Time of Service: 11:54 Assessment and Plan (1) Sepsis: Current visit: No Status: Acute Based on initial findings of Fever, Tachycardia, and elevated Lacted. Suspected dental source (Abscess) as patient's CXR and urinalysis are negative, and without any evidence of cellulitis or abscess. Await blood cultures and continue empiric broad spectrum antibiotics. Monitor vitals, and continue IVFs for now. Appears improved. (2) Dental abscess: Current visit: No Status: Acute Reported infection following injury to the tooth following intubation prior to Thrombectomy. Has appointment at dental clinic in 2 days. Continue antibiotic therapy as above. (3) Diabetes: Current visit: No Status: Chronic Continue Basal insulin. As per patient's insistence sliding scale coverage was discontinued, and he was cautiously restarted on his rather large home dosing of Insulin Aspart. Will monitor blood sugars very carefully following first dose. (4) Pancreatic cancer: Current visit: No Status: Chronic Stage IV, with mets to the liver and possibly lung and bone. Currently undergoing chemo. Follows with Dr. Noel. (5) SVC syndrome: Current visit: Yes Status: Chronic S/p Thrombectomy. Continue weight based Enoxaparin. (6) History of GI bleed: Current visit: Yes Status: Chronic Reportedly in setting of Tali-Aguilar Tear. Appears asymptomatic. Continue PPI and monitor Hgb. (7) DVT prophylaxis: Current visit: Yes Status: Acute On therapeutic Lovenox. (8) Advance directive on file: Current visit: Yes Status: Acute Full Code. Subjective Interval history since last seen: Unfortunate 58 year old man with a prior history of Metastatic Pancreatic Ca, currently on treatment with chemotherapy, admitted from [facility] Emergency Department on 11/21 with a diagnosis of Fever and Sepsis. Mr. Ko has a past Medical History significant for Stage IV Pancreatic AdenoCarcinoma with mets to the liver (as well as with pulmonary nodules and mention of a T11 Vertebral body Sclerotic lesion), initially diagnosed in April of 2018. He follows with Dr. Noel from Oncology, and undergoes Chemotherapy through [facility]. His other medical history includes IDDM, HTN, Dyslipidemia, nephrolithiasis, Splenic Vein Thrombosis, and Depression. Also with reported history of GIB in the setting of Tali-Aguilar tear in July of 2018. Review of records also reveals a history of SVC syndrome, s/p Thrombectomy in June of 2018 at an outside institution, now chronically anticoagulated with weight based Enoxaparin. Patient reports onset of nausea, fever, and malaise the night prior to his admission. At presentation to the ED he was noted to be febrile with a temperature of 38.7, tachycardia, and an elevated Lactate, but without a leukocytosis, and with a negative CXR and urinalysis. Of note, the patient reports that during his Thrombectomy he was intubated, and ended up having a 'chipped' tooth, after which he developed a dental abscess. He was referred for admission for treatment of presumed Sepsis. This morning the patient reports significant improvement in his symptoms. He has been afebrile since admission. No overnight events were reported. Exam Narrative Exam Narrative: General: Patient appears comfortable, AAOX3, NAD Neck: Supple CV: Regular, nontachycardic, S1S2, No rubs, murmurs, or gallops. Pulmonary: Clear to auscultation bilaterally, no crackles, wheezing, or rhonchi Abdomen: + Bowel Sounds, soft, nontender, nondistended. Obese in contour. Vascular: +1-2 b/l lower extremity edema Psych: Normal mood and affect. Objective Objective Clinical Data: Abnormal lab results 11/21/18 11/21/18 11/21/18 Range/Units 17:05 17:05 17:05 RBC 3.21 L (4.50-6.00) m/cumm Hgb 9.2 L (13.5-17.5) g/dL Hct 28.7 L (40.0-50.0) % MCHC (32.0-36.0) g/dL RDW 19.0 H (11.8-14.1) % Plt Count 88 L (130-400) x1000/uL Absolute Neutrophils 9.61 H (1.2-6.7) k/cumm Absolute Lymphocytes 0.57 L (1.2-3.4) k/cumm Absolute Monocytes 0.07 L (0.11-0.7) k/cumm PT 11.4 H (9.3-11.0) sec APTT 72.2 H (21.0-31.4) sec Potassium 3.2 L (3.5-5.1) mmol/L Anion Gap 13.9 H (3-11) mmol/L Glucose 283 H (70-100) mg/dL Hemoglobin A1c (4.5-6.2) % Lactate (0.6-1.4) mmol/l Calcium 8.2 L (8.5-10.1) mg/dL Magnesium (1.8-2.4) mg/dL AST 38 H (15-37) U/L NT-Pro-B Natriuret Pep 370 H ( - 299) pg/mL Lipase 33 L (73-393) U/L Urine Protein (Negative) mg/dL Urine Ketones (Negative) mg/dL Urine Blood (Negative) Urine Bilirubin (Negative) Urine Glucose (Negative) mg/dL 11/21/18 11/21/18 11/21/18 Range/Units 17:35 17:55 18:50 RBC (4.50-6.00) m/cumm Hgb (13.5-17.5) g/dL Hct (40.0-50.0) % MCHC (32.0-36.0) g/dL RDW (11.8-14.1) % Plt Count (130-400) x1000/uL Absolute Neutrophils (1.2-6.7) k/cumm Absolute Lymphocytes (1.2-3.4) k/cumm Absolute Monocytes (0.11-0.7) k/cumm PT (9.3-11.0) sec APTT (21.0-31.4) sec Potassium (3.5-5.1) mmol/L Anion Gap (3-11) mmol/L Glucose (70-100) mg/dL Hemoglobin A1c (4.5-6.2) % Lactate 2.4 H (0.6-1.4) mmol/l Calcium (8.5-10.1) mg/dL Magnesium 1.2 L (1.8-2.4) mg/dL AST (15-37) U/L NT-Pro-B Natriuret Pep ( - 299) pg/mL Lipase (73-393) U/L Urine Protein 100 H (Negative) mg/dL Urine Ketones Trace H (Negative) mg/dL Urine Blood Trace-intact H (Negative) Urine Bilirubin Small H (Negative) Urine Glucose 500 H (Negative) mg/dL 11/22/18 11/22/18 11/22/18 Range/Units 06:50 06:50 06:50 RBC 2.83 L (4.50-6.00) m/cumm Hgb 8.2 L (13.5-17.5) g/dL Hct 26.0 L (40.0-50.0) % MCHC 31.5 L (32.0-36.0) g/dL RDW 19.0 H (11.8-14.1) % Plt Count 85 L (130-400) x1000/uL Absolute Neutrophils (1.2-6.7) k/cumm Absolute Lymphocytes 0.38 L (1.2-3.4) k/cumm Absolute Monocytes 0.05 L (0.11-0.7) k/cumm PT (9.3-11.0) sec APTT (21.0-31.4) sec Potassium (3.5-5.1) mmol/L Anion Gap 12.1 H (3-11) mmol/L Glucose 258 H (70-100) mg/dL Hemoglobin A1c 8.6 H (4.5-6.2) % Lactate (0.6-1.4) mmol/l Calcium 8.2 L (8.5-10.1) mg/dL Magnesium (1.8-2.4) mg/dL AST (15-37) U/L NT-Pro-B Natriuret Pep ( - 299) pg/mL Lipase (73-393) U/L Urine Protein (Negative) mg/dL Urine Ketones (Negative) mg/dL Urine Blood (Negative) Urine Bilirubin (Negative) Urine Glucose (Negative) mg/dL Vital Signs Temperature 36.7 C 11/22/18 07:30 Temperature Source Tympanic 11/22/18 07:30 Pulse 100 H 11/22/18 07:30 Pulse Rhythm Regular 11/21/18 20:20 Respiratory Rate 18 11/22/18 07:30 Respiratory Effort Non-Labored 11/21/18 20:20 Respiratory Depth Normal 11/21/18 20:20 Respiratory Pattern Normal 11/21/18 20:20 Blood Pressure 125/76 11/22/18 07:30 Blood Pressure Position Supine 11/21/18 16:52 Pulse Oximetry 96 11/22/18 07:30 Oxygen Delivery Method Room Air 11/22/18 07:30 Oxygen Flow Rate 0 11/22/18 07:30 Pain Level 0 11/22/18 07:30 Intake & Output 11/21/18 11/21/18 11/22/18 11:59 23:59 11:59 Intake Total 2483.333 / 2483.333 2195.000 / 2195.000 Output Total 400 / 400 Balance 2083.333 / 2083.333 2195.000 / 2195.000 Weight 139.7 kg 137.5 kg Intake: IV 2483.333 / 2483.333 1495.000 / 1495.000 Oral 700 / 700 Output: Urine 400 / 400 Other: Urine Color Yellow Urine Appearance Clear Comment pt gets up AD JONI in room to void. Voiding Methods Urinal Laboratory Results WBC 6.82 k/cumm (4.4-10.8) D 11/22/18 06:50 RBC 2.83 m/cumm (4.50-6.00) L 11/22/18 06:50 Hgb 8.2 g/dL (13.5-17.5) L 11/22/18 06:50 Hct 26.0 % (40.0-50.0) L 11/22/18 06:50 MCV 91.9 fL (80-95) 11/22/18 06:50 MCH 29.0 pg (27.0-33.0) 11/22/18 06:50 MCHC 31.5 g/dL (32.0-36.0) L 11/22/18 06:50 RDW 19.0 % (11.8-14.1) H 11/22/18 06:50 Plt Count 85 x1000/uL (130-400) L 11/22/18 06:50 MPV 10.6 fL (8.0-11.0) 11/22/18 06:50 Immature Gran % 0.3 11/22/18 06:50 Neutrophils % 92.6 11/22/18 06:50 Lymphocytes % 5.6 11/22/18 06:50 Monocytes % 0.7 11/22/18 06:50 Eosinophils % 0.7 11/22/18 06:50 Basophils % 0.1 11/22/18 06:50 Absolute Neutrophils 6.32 k/cumm (1.2-6.7) 11/22/18 06:50 Absolute Lymphocytes 0.38 k/cumm (1.2-3.4) L 11/22/18 06:50 Absolute Monocytes 0.05 k/cumm (0.11-0.7) L 11/22/18 06:50 Absolute Eosinophils 0.05 k/cumm (0.0-0.7) 11/22/18 06:50 Absolute Basophils 0.01 k/cumm (0.0-0.2) 11/22/18 06:50 Differential Comment Plt morph reviewed 11/22/18 06:50 RBC Morphology See below 11/22/18 06:50 Hypochromasia 1+ 11/22/18 06:50 Anisocytosis 2+ 11/22/18 06:50 PT 11.4 sec (9.3-11.0) H 11/21/18 17:05 INR 1.1 (0.9-1.1) 11/21/18 17:05 APTT 72.2 sec (21.0-31.4) H 11/21/18 17:05 Sodium 140 mmol/L (136-145) 11/22/18 06:50 Potassium 3.8 mmol/L (3.5-5.1) 11/22/18 06:50 Chloride 103 mmol/L (98-107) 11/22/18 06:50 Carbon Dioxide 24.9 mmol/L (21.0-32.0) 11/22/18 06:50 Anion Gap 12.1 mmol/L (3-11) H 11/22/18 06:50 BUN 10 mg/dL (7-18) 11/22/18 06:50 Creatinine 0.73 mg/dL (0.70-1.30) 11/22/18 06:50 Estimated GFR/1.73 m2 >= 60.00 (mL/min/1.73m2) 11/22/18 06:50 Glucose 258 mg/dL (70-100) H 11/22/18 06:50 Hemoglobin A1c 8.6 % (4.5-6.2) H 11/22/18 06:50 Lactate 1.2 mmol/l (0.6-1.4) 11/22/18 08:50 Calcium 8.2 mg/dL (8.5-10.1) L 11/22/18 06:50 Magnesium 2.0 mg/dL (1.8-2.4) 11/22/18 06:50 Total Bilirubin 0.7 mg/dL (0.2-1.0) 11/21/18 17:05 AST 38 U/L (15-37) H 11/21/18 17:05 ALT 55 U/L (12-78) 11/21/18 17:05 Alkaline Phosphatase 75 U/L (46-116) 11/21/18 17:05 Troponin I < 0.05 ng/mL (0.00-0.06) 11/21/18 17:05 NT-Pro-B Natriuret Pep 370 pg/mL (-299) H 11/21/18 17:05 Total Protein 7.2 g/dL (6.4-8.2) 11/21/18 17:05 Albumin 3.4 g/dL (3.4-5.0) 11/21/18 17:05 Lipase 33 U/L (73-393) L 11/21/18 17:05 TSH 1.77 uIU/mL (0.358-3.74) 11/21/18 17:05 Urine Color Radha (Yellow) 11/21/18 18:50 Urine Clarity Clear 11/21/18 18:50 Urine pH 6.0 (5-8) 11/21/18 18:50 Ur Specific [place] 1.020 (1.005-1.025) 11/21/18 18:50 Urine Protein 100 mg/dL (Negative) H 11/21/18 18:50 Urine Ketones Trace mg/dL (Negative) H 11/21/18 18:50 Urine Blood Trace-intact (Negative) H 11/21/18 18:50 Urine Nitrite Negative (Negative) 11/21/18 18:50 Urine Bilirubin Small (Negative) H 11/21/18 18:50 Urine Urobilinogen 0.2 EU/dL (Up TO 0.2) 11/21/18 18:50 Ur Leukocyte Esterase Negative (Negative) 11/21/18 18:50 Urine RBC 0-2 (0-2) 11/21/18 18:50 Urine WBC 5-10 HPF (0-5) 11/21/18 18:50 Ur Epithelial Cells Few HPF (Negative) 11/21/18 18:50 Urine Crystals Negative HPF (Negative) 11/21/18 18:50 Urine Bacteria Rare HPF (Negative) 11/21/18 18:50 Urine Casts Negative LPF (Negative) 11/21/18 18:50 Urine Mucus Moderate (Negative) 11/21/18 18:50 Ur Culture Indicated? Yes 11/21/18 18:50 Urine Glucose 500 mg/dL (Negative) H 11/21/18 18:50
[2018-11-22 15:55] VITALS: BP 148/87; PULSE 97; RESP 19; TEMP 37.1; O2SAT 97
[2018-11-22] MEDS: Insulin Aspart 300 UNITS/3 ML PEN 100 UNITS SC (17:02)
--- NOTE | 2018-11-22 17:33 | PDOC.CMIN ---
Care Management Initial Assess REASON FOR HOSPITALIZATION:: Bacteremia PAST MEDICAL HISTORY/PAST SURGICAL HISTORY:: Dental abscess, diabetes, hypokalemia, hypomagnesemia, leesa-escobar tear, nausea and vomiting, pancreatic metastatic cancer, sepsis, hx of lumbar laminectomy, Immunosuppression due to drug therapy PREVIOUS FUNCTIONAL STATUS/SOCIAL/FAMILY SUPPORTS:: Sunil Ko resides in [place], [place] with his , Svetlana. 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 He is currently receiving chemo which has slowed him down, though he remains independent in the community at this time. He and Svetlana have two daughters and six grandchildren. They report a supportive family and natural support network of friends. 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 CURRENT FUNCTIONAL STATUS:: Timmy is sitting on the side of his bed, in his own jessica-shirt and sweatpants. His daughter and infant grand-child are at his side as well as his brother and [id number], he reports feeling confident with his treatment plan and content with his care. He shares concerns about having to self-advocate for best managment of his diabetes but reports positive interactions with providers. ADVANCE DIRECTIVES:: None on file at [facility]. Has patient been provided with information about the portal?: Yes Did the patient sign up for the portal?: No CODE STATUS:: Full Code INSURANCE COVERAGE / FINANCIAL ISSUES:: [facility] CURRENT HOME/COMMUNITY SERVICES/EQUIPMENT:: [facility] directed by Dr. Noel PRIMARY CARE PHYSICIAN:: Rosalva Ingram POTENTIAL DISCHARGE NEEDS:: Resumption of [facility] care. Antibiotic therapy upon discharge dependent on culture results. PATIENT/FAMILY EDUCATION NEEDS:: Review of discharge instructions, self care needs Ask Me Three. ANTICIPATED BARRIERS TO DISCHARGE:: None identified. TRANSPORTATION:: Via private vehicle with family. PLAN:: Timmy will return home when ready per MD. He will follow up with his PCP and plan of care as prescribed. He will transport via private vehicle with his , Svetlana.
--- NOTE | 2018-11-22 17:47 | INITIAL_ITS ---
Care Management Initial Assess REASON FOR HOSPITALIZATION:: Bacteremia PAST MEDICAL HISTORY/PAST SURGICAL HISTORY:: Dental abscess, diabetes, hypokalemia, hypomagnesemia, leesa-escobar tear, nausea and vomiting, pancreatic metastatic cancer, sepsis, hx of lumbar laminectomy, Immunosuppression due to drug therapy PREVIOUS FUNCTIONAL STATUS/SOCIAL/FAMILY SUPPORTS:: Sunil Ko resides in [place], [place] with his , Svetlana. 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 He is currently receiving chemo which has slowed him down, though he remains independent in the community at this time. He and Svetlana have two daughters and six grandchildren. They report a supportive family and natural support network of friends. 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 CURRENT FUNCTIONAL STATUS:: Timmy is sitting on the side of his bed, in his own jessica-shirt and sweatpants. His daughter and infant grand-child are at his side as well as his brother and [id number], he reports feeling confident with his treatment plan and content with his care. He shares concerns about having to self-advocate for best managment of his diabetes but reports positive interactions with providers. ADVANCE DIRECTIVES:: None on file at [facility]. Has patient been provided with information about the portal?: Yes Did the patient sign up for the portal?: No CODE STATUS:: Full Code INSURANCE COVERAGE / FINANCIAL ISSUES:: [facility] CURRENT HOME/COMMUNITY SERVICES/EQUIPMENT:: [facility] directed by Dr. Noel PRIMARY CARE PHYSICIAN:: Rosalva Ingram POTENTIAL DISCHARGE NEEDS:: Resumption of [facility] care. Antibiotic therapy upon discharge dependent on culture results. PATIENT/FAMILY EDUCATION NEEDS:: Review of discharge instructions, self care needs Ask Me Three. ANTICIPATED BARRIERS TO DISCHARGE:: None identified. TRANSPORTATION:: Via private vehicle with family. PLAN:: Timmy will return home when ready per MD. He will follow up with his PCP and plan of care as prescribed. He will transport via private vehicle with his , Svetlana.
[2018-11-22] MEDS: Normal Saline 500 ML 30 ML IV (20:00)
[2018-11-22] MEDS: Normal Saline Flush 10 ML SYR IVP (20:13)
[2018-11-22] MEDS: Insulin Glargine 300 UNITS/3 ML PEN 75 UNITS SC (21:22)
[2018-11-22 23:31] VITALS: BP 110/67; PULSE 87; RESP 20; TEMP 37.3; O2SAT 100
[2018-11-23] MEDS: PIPERACILLIN/TAZO 3.375 GM in Normal Saline 50 ML IVPB ×2 (02:52→08:39)
[2018-11-23 02:53] VITALS: BP 136/76; PULSE 95; RESP 17; TEMP 37.5; O2SAT 97
[2018-11-23] MEDS: Normal Saline Flush 10 ML SYR IVP (02:53)
[2018-11-23] MEDS: VANCOMYCIN 2,000 MG in Normal Saline 500 ML 250 MG IVPB (06:17)
[2018-11-23 07:02] LABS: Abs Immature Grans 0.01 k/cumm (0.0-0.09); Absolute Eosinophil Count 0.09 k/cumm (0.0-0.7); Absolute Monocyte Count 0.08 k/cumm (0.11-0.7); Absolute Neutrophil Count 3.41 k/cumm (1.2-6.7); Eosinophils % 2.2; HCT 25.7 % (40.0-50.0); HGB 7.9 g/dL (13.5-17.5); Immature Grans % 0.2; Lymphocytes % 12.2; Mean Corp. HGB Concentration 30.7 g/dL (32.0-36.0); Mean Corpuscular Hemoglobin 28.7 pg (27.0-33.0); Mean Corpuscular Volume 93.5 fL (80-95); Mean Platelet Volume 10.3 fL (8.0-11.0); Neutrophils % 83.4; RBC 2.75 m/cumm (4.50-6.00); RBC Distribution Width 18.8 % (11.8-14.1); White Blood Cell Count 4.09 k/cumm (4.4-10.8)
[2018-11-23 07:08] LABS: Anion Gap 9.6 mmol/L (3-11); BUN 13 mg/dL (7-18); CO2 25.4 mmol/L (21.0-32.0); CREATININE 0.66 mg/dL (0.70-1.30); Calcium 7.8 mg/dL (8.5-10.1); Chloride 105 mmol/L (98-107); Glucose 259 mg/dL (70-100); Potassium 3.8 mmol/L (3.5-5.1); Sodium 140 mmol/L (136-145)
[2018-11-23 07:40] VITALS: BP 155/84; PULSE 86; RESP 16; TEMP 36.5; O2SAT 93; O2SAT 95
[2018-11-23 08:08] LABS: Platelet Count 88 x1000/uL (130-400)
[2018-11-23] MEDS: Enoxaparin 80 MG/0.8 ML SYR 75 MG SC ×2 (08:23→19:53)
[2018-11-23] MEDS: Lactobacillus Acidophilus CAP 1 CAP PO (08:24)
[2018-11-23] MEDS: Docusate Sodium 100 MG CAP PO ×2 (08:24→19:53)
[2018-11-23] MEDS: Atorvastatin 40 MG TAB 80 MG PO (08:24)
[2018-11-23] MEDS: amLODIPine 10 MG TAB PO (08:24)
[2018-11-23] MEDS: FLUoxetine 20 MG CAP PO (08:24)
[2018-11-23] MEDS: Loratidine 10 MG TAB PO (08:24)
[2018-11-23] MEDS: Omeprazole 20 MG CAPCR 40 MG PO ×2 (08:24→19:53)
[2018-11-23] MEDS: Insulin Glargine 300 UNITS/3 ML PEN 75 UNITS SC ×2 (08:25→19:53)
[2018-11-23] MEDS: Insulin Aspart 300 UNITS/3 ML PEN 100 UNITS SC ×2 (08:27→17:09)
--- NOTE | 2018-11-23 11:07 | NUR.NOTE ---
Patient approached nursing station with , telling staff he was going outside. Nursing staff (Maria L Gibbs RN) informed the patient that he needs supervision to go outside, stating he is an inpatient. Patient became agitated, using obscenities and stating that he doesn't care, I'm going outside. Case management was alerted. Case management escorted the patient outside. stated she was going to take a walk without the patient. Nursing Note:
[2018-11-23] MEDS: Potassium Chloride 20 MEQ TABCR PO (12:13)
[2018-11-23] MEDS: metroNIDAZOLE 500 MG TAB PO ×2 (12:13→19:53)
[2018-11-23] MEDS: levoFLOXacin 500 MG, levoFLOXacin 250 MG 750 MG PO (12:23)
[2018-11-23 12:30] VITALS: BP 124/81; PULSE 95; RESP 18; TEMP 36.5; O2SAT 97
--- NOTE | 2018-11-23 13:08 | NUR.NOTE ---
Nursing Note: patient expressed concern that his lunchtime FS was 301, and was not receiving insulin coverage for this. i approached a the [facility] and expressed the concern . She stated that his diabetes was discussed at morning meeting. She asked if my concern was that he was not receiving enough insulin, and I said yes. Awaiting further orders
--- NOTE | 2018-11-23 14:10 | PDOC.CMPRO ---
Care Management Progress Note S/O: CM received call from [employer] Sergeant requesting support [place] to support Timmy who was reportedly dysregulated at the desk. CM responded, and immediately diffused the situation, and allowed Timmy to process his reaction to the situation. Timmy calmed down immediately and verbalized his perspective appropriately. Timmy and this CM met with the MD shortly thereafter to update Timmy on the plan. CM continues to follow. A: 58 year old male admitted to [facility] 11/21/18 P: Sunil Timmy will return home when ready per MD. He switched to orals today and if he remains stable, will likely discharge tomorrow per MD. He will transport via private vehicle with family.
--- NOTE | 2018-11-23 14:32 | W.PM.PROGNOT ---
Date of Service Date of service: 11/23/18 Time of Service: 14:33 Assessment and Plan (1) Sepsis: Current visit: No Status: Acute Based on initial findings of Fever, Tachycardia, and elevated Lacted. Suspected dental source (Abscess) as patient's CXR and urinalysis are negative, and without any evidence of cellulitis or abscess. All Culture results negative. Will discontinue Vancomycin and Pip-Tazo in favor of oral Levofloxacin and Metronidazole for coverage of dental infection in immunosuppressed patient. Plan will be to monitor for an additional 24 hours with change to oral anitibiotics, and discharge tomorrow if stable. Appears improved. (2) Dental abscess: Current visit: No Status: Acute Reported infection following injury to the tooth following intubation prior to Thrombectomy. Has appointment at dental clinic tomorrow. Continue antibiotic therapy as above. (3) Diabetes: Current visit: No Status: Chronic Continue Basal insulin. As per patient's insistence sliding scale coverage was discontinued, and he was cautiously restarted on his high dose Insulin Aspart. Will monitor blood sugars very carefully following first dose. (4) Pancreatic cancer: Current visit: No Status: Chronic Stage IV, with mets to the liver and possibly lung and bone. Currently undergoing chemo. Follows with Dr. Noel. Current pancytopenia may potentially be on the basis of chemo use. (5) SVC syndrome: Current visit: Yes Status: Resolved S/p Thrombectomy. Continue weight based Enoxaparin. (6) History of GI bleed: Current visit: Yes Status: Chronic Reportedly in setting of Tali-Aguilar Tear. Appears asymptomatic. Continue PPI and monitor Hgb. (7) DVT prophylaxis: Current visit: Yes Status: Acute On therapeutic Lovenox. (8) Advance directive on file: Current visit: Yes Status: Acute Full Code. Subjective Interval history since last seen: Unfortunate 58 year old man with a prior history of Metastatic Pancreatic Ca, currently on treatment with chemotherapy, admitted from [facility] Emergency Department on 11/21 with a diagnosis of Fever and Sepsis. Mr. Ko has a past Medical History significant for Stage IV Pancreatic AdenoCarcinoma with mets to the liver (as well as with pulmonary nodules and mention of a T11 Vertebral body Sclerotic lesion), initially diagnosed in April of 2018. He follows with Dr. Noel from Oncology, and undergoes Chemotherapy [facility]. His other medical history includes IDDM, HTN, Dyslipidemia, nephrolithiasis, Splenic Vein Thrombosis, and Depression. Also with reported history of GIB in the setting of Tali-Aguilar tear in July of 2018. Review of records also reveals a history of SVC syndrome, s/p Thrombectomy in June of 2018 at an outside institution, now chronically anticoagulated with weight based Enoxaparin. Patient reports onset of nausea, fever, and malaise the night prior to his admission. At presentation to the ED he was noted to be febrile with a temperature of 38.7, tachycardia, and an elevated Lactate, but without a leukocytosis, and with a negative CXR and urinalysis. Of note, the patient reports that during his Thrombectomy he was intubated, and ended up having a 'chipped' tooth, after which he developed a dental abscess. He was referred for admission for treatment of presumed Sepsis. This morning the patient reports continued improvement in his symptoms. He has been afebrile since admission while on broad spectrum antibiotic therapy. No overnight events were reported. Exam Narrative Exam Narrative: General: Patient appears comfortable, AAOX3, NAD Neck: Supple CV: Regular, nontachycardic, S1S2, No rubs, murmurs, or gallops. Pulmonary: Clear to auscultation bilaterally, no crackles, wheezing, or rhonchi Abdomen: + Bowel Sounds, soft, nontender, nondistended. Obese in contour. Vascular: +1-2 b/l lower extremity edema Psych: Normal mood and affect. Objective Objective Clinical Data: Abnormal lab results 11/23/18 11/23/18 Range/Units 06:15 06:15 WBC 4.09 L D (4.4-10.8) k/cumm RBC 2.75 L (4.50-6.00) m/cumm Hgb 7.9 L (13.5-17.5) g/dL Hct 25.7 L (40.0-50.0) % MCHC 30.7 L (32.0-36.0) g/dL RDW 18.8 H (11.8-14.1) % Plt Count 88 L (130-400) x1000/uL Absolute Lymphocytes 0.50 L (1.2-3.4) k/cumm Absolute Monocytes 0.08 L (0.11-0.7) k/cumm Creatinine 0.66 L (0.70-1.30) mg/dL Glucose 259 H (70-100) mg/dL Calcium 7.8 L (8.5-10.1) mg/dL Vital Signs Temperature 36.5 C 11/23/18 12:30 Temperature Source Temporal Artery Scan 11/23/18 12:30 Pulse 95 H 11/23/18 12:30 Pulse Rhythm Regular 11/23/18 07:40 Respiratory Rate 18 11/23/18 12:30 Respiratory Effort 11/23/18 07:40 Respiratory Depth Normal 11/23/18 07:40 Respiratory Pattern Normal 11/23/18 07:40 Blood Pressure 124/81 11/23/18 12:30 Blood Pressure Position Supine 11/21/18 16:52 Pulse Oximetry 97 11/23/18 12:30 Oxygen Delivery Method Room Air 11/23/18 12:30 Oxygen Flow Rate 0 11/23/18 12:30 Pain Level 0 11/23/18 12:30 Intake & Output 11/22/18 11/23/18 11/23/18 23:59 11:59 23:59 Intake Total 2736.667 / 5291.667 850 / 1210 360 / 1210 Balance 2736.667 / 5291.667 850 / 1210 360 / 1210 Weight 141.8 kg Intake: IV 1596.667 / 3091.667 650 / 650 Oral 1140 / 2200 200 / 560 360 / 560 Other: Comment pt gets up AD JONI in room. Voiding Methods Toilet Laboratory Results WBC 4.09 k/cumm (4.4-10.8) L D 11/23/18 06:15 RBC 2.75 m/cumm (4.50-6.00) L 11/23/18 06:15 Hgb 7.9 g/dL (13.5-17.5) L 11/23/18 06:15 Hct 25.7 % (40.0-50.0) L 11/23/18 06:15 MCV 93.5 fL (80-95) 11/23/18 06:15 MCH 28.7 pg (27.0-33.0) 11/23/18 06:15 MCHC 30.7 g/dL (32.0-36.0) L 11/23/18 06:15 RDW 18.8 % (11.8-14.1) H 11/23/18 06:15 Plt Count 88 x1000/uL (130-400) L 11/23/18 06:15 MPV 10.3 fL (8.0-11.0) 11/23/18 06:15 Immature Gran % 0.2 11/23/18 06:15 Neutrophils % 83.4 11/23/18 06:15 Lymphocytes % 12.2 11/23/18 06:15 Monocytes % 2.0 11/23/18 06:15 Eosinophils % 2.2 11/23/18 06:15 Basophils % 0.0 11/23/18 06:15 Absolute Neutrophils 3.41 k/cumm (1.2-6.7) 11/23/18 06:15 Absolute Lymphocytes 0.50 k/cumm (1.2-3.4) L 11/23/18 06:15 Absolute Monocytes 0.08 k/cumm (0.11-0.7) L 11/23/18 06:15 Absolute Eosinophils 0.09 k/cumm (0.0-0.7) 11/23/18 06:15 Absolute Basophils 0.00 k/cumm (0.0-0.2) 11/23/18 06:15 Differential Comment Plt morph reviewed 11/22/18 06:50 RBC Morphology See below 11/22/18 06:50 Hypochromasia 1+ 11/22/18 06:50 Anisocytosis 2+ 11/22/18 06:50 PT 11.4 sec (9.3-11.0) H 11/21/18 17:05 INR 1.1 (0.9-1.1) 11/21/18 17:05 APTT 72.2 sec (21.0-31.4) H 11/21/18 17:05 Sodium 140 mmol/L (136-145) 11/23/18 06:15 Potassium 3.8 mmol/L (3.5-5.1) 11/23/18 06:15 Chloride 105 mmol/L (98-107) 11/23/18 06:15 Carbon Dioxide 25.4 mmol/L (21.0-32.0) 11/23/18 06:15 Anion Gap 9.6 mmol/L (3-11) 11/23/18 06:15 BUN 13 mg/dL (7-18) 11/23/18 06:15 Creatinine 0.66 mg/dL (0.70-1.30) L 11/23/18 06:15 Estimated GFR/1.73 m2 >= 60.00 (mL/min/1.73m2) 11/23/18 06:15 Glucose 259 mg/dL (70-100) H 11/23/18 06:15 Hemoglobin A1c 8.6 % (4.5-6.2) H 11/22/18 06:50 Lactate 1.2 mmol/l (0.6-1.4) 11/22/18 08:50 Calcium 7.8 mg/dL (8.5-10.1) L 11/23/18 06:15 Magnesium 2.0 mg/dL (1.8-2.4) 11/23/18 06:15 Total Bilirubin 0.7 mg/dL (0.2-1.0) 11/21/18 17:05 AST 38 U/L (15-37) H 11/21/18 17:05 ALT 55 U/L (12-78) 11/21/18 17:05 Alkaline Phosphatase 75 U/L (46-116) 11/21/18 17:05 Troponin I < 0.05 ng/mL (0.00-0.06) 11/21/18 17:05 NT-Pro-B Natriuret Pep 370 pg/mL (-299) H 11/21/18 17:05 Total Protein 7.2 g/dL (6.4-8.2) 11/21/18 17:05 Albumin 3.4 g/dL (3.4-5.0) 11/21/18 17:05 Lipase 33 U/L (73-393) L 11/21/18 17:05 TSH 1.77 uIU/mL (0.358-3.74) 11/21/18 17:05 Urine Color Radha (Yellow) 11/21/18 18:50 Urine Clarity Clear 11/21/18 18:50 Urine pH 6.0 (5-8) 11/21/18 18:50 Ur Specific Bouse 1.020 (1.005-1.025) 11/21/18 18:50 Urine Protein 100 mg/dL (Negative) H 11/21/18 18:50 Urine Ketones Trace mg/dL (Negative) H 11/21/18 18:50 Urine Blood Trace-intact (Negative) H 11/21/18 18:50 Urine Nitrite Negative (Negative) 11/21/18 18:50 Urine Bilirubin Small (Negative) H 11/21/18 18:50 Urine Urobilinogen 0.2 EU/dL (Up TO 0.2) 11/21/18 18:50 Ur Leukocyte Esterase Negative (Negative) 11/21/18 18:50 Urine RBC 0-2 (0-2) 11/21/18 18:50 Urine WBC 5-10 HPF (0-5) 11/21/18 18:50 Ur Epithelial Cells Few HPF (Negative) 11/21/18 18:50 Urine Crystals Negative HPF (Negative) 11/21/18 18:50 Urine Bacteria Rare HPF (Negative) 11/21/18 18:50 Urine Casts Negative LPF (Negative) 11/21/18 18:50 Urine Mucus Moderate (Negative) 11/21/18 18:50 Ur Culture Indicated? Yes 11/21/18 18:50 Urine Glucose 500 mg/dL (Negative) H 11/21/18 18:50 Vancomycin Trough Cancelled 11/23/18 13:00
[2018-11-23 15:36] VITALS: BP 123/72; PULSE 94; RESP 18; TEMP 36.9; O2SAT 97
--- NOTE | 2018-11-23 15:38 | CMPROGNOTE_ITS ---
Care Management Progress Note S/O: CM received call from [employer] Customer Expert requesting support [place] to support Timmy who was reportedly dysregulated at the desk. CM responded, and immediately diffused the situation, and allowed Timmy to process his reaction to the situation. Timmy calmed down immediately and verbalized his perspective appropriately. Timmy and this CM met with the MD shortly thereafter to update Timmy on the plan. CM continues to follow. A: 58 year old male admitted to [facility] 11/21/18 P: Sunil Timmy will return home when ready per MD. He switched to orals today and if he remains stable, will likely discharge tomorrow per MD. He will transport via private vehicle with family.
[2018-11-23 20:00] VITALS: BP 136/78; PULSE 99; RESP 16; TEMP 36.5; O2SAT 98
[2018-11-23 20:15] LABS: Glucose 434 mg/dL (70-100)
[2018-11-23] MEDS: LORazepam 1 MG TAB PO (23:27)
[2018-11-23 23:36] VITALS: BP 142/69; PULSE 71; RESP 71; TEMP 36.6; O2SAT 95
[2018-11-24 03:49] VITALS: PULSE 72; RESP 17; TEMP 36.5
[2018-11-24] MEDS: metroNIDAZOLE 500 MG TAB PO ×2 (05:24→11:25)
[2018-11-24 07:24] LABS: Absolute Eosinophil Count 0.05 k/cumm (0.0-0.7); Absolute Lymphocyte Count 0.43 k/cumm (1.2-3.4); Absolute Monocyte Count 0.07 k/cumm (0.11-0.7); Absolute Neutrophil Count 1.16 k/cumm (1.2-6.7); Eosinophils % 2.9; HCT 25.2 % (40.0-50.0); HGB 7.7 g/dL (13.5-17.5); Lymphocytes % 25.1; Mean Corp. HGB Concentration 30.6 g/dL (32.0-36.0); Mean Corpuscular Hemoglobin 28.1 pg (27.0-33.0); Mean Platelet Volume 9.7 fL (8.0-11.0); Monocytes % 4.1; Neutrophils % 67.9; RBC 2.74 m/cumm (4.50-6.00); RBC Distribution Width 18.6 % (11.8-14.1)
[2018-11-24 07:57] LABS: Anion Gap 8.9 mmol/L (3-11); BUN 10 mg/dL (7-18); CO2 26.1 mmol/L (21.0-32.0); CREATININE 0.65 mg/dL (0.70-1.30); Calcium 8.2 mg/dL (8.5-10.1); Chloride 107 mmol/L (98-107); Glucose 237 mg/dL (70-100); Magnesium 1.9 mg/dL (1.8-2.4); Potassium 3.9 mmol/L (3.5-5.1); Sodium 142 mmol/L (136-145)
[2018-11-24 08:04] VITALS: BP 114/65; PULSE 86; RESP 18; TEMP 36.3; O2SAT 98
[2018-11-24] MEDS: Insulin Glargine 300 UNITS/3 ML PEN 75 UNITS SC (08:17)
[2018-11-24] MEDS: Insulin Aspart 300 UNITS/3 ML PEN 100 UNITS SC (08:17)
[2018-11-24] MEDS: Enoxaparin 80 MG/0.8 ML SYR 75 MG SC (08:18)
[2018-11-24] MEDS: levoFLOXacin 500 MG, levoFLOXacin 250 MG 750 MG PO (08:19)
[2018-11-24] MEDS: Loratidine 10 MG TAB PO (08:19)
[2018-11-24] MEDS: Lactobacillus Acidophilus CAP 1 CAP PO (08:19)
[2018-11-24] MEDS: Omeprazole 20 MG CAPCR 40 MG PO (08:19)
[2018-11-24] MEDS: Atorvastatin 40 MG TAB 80 MG PO (08:20)
[2018-11-24] MEDS: amLODIPine 10 MG TAB PO (08:20)
[2018-11-24] MEDS: FLUoxetine 20 MG CAP PO (08:20)
[2018-11-24] MEDS: Docusate Sodium 100 MG CAP PO (08:20)
[2018-11-24 08:39] LABS: White Blood Cell Count 1.71 k/cumm (4.4-10.8)
[2018-11-24 08:41] LABS: Diff Comment Agrees w/ Instrument; Platelet Count 73 x1000/uL (130-400)
[2018-11-24 08:42] LABS: Anisocytosis 1+; Hypochromasia 1+; Polychromasia Present
[2018-11-24 08:43] LABS: Poikilocytes 1+
--- NOTE | 2018-11-24 09:33 | PDOC.CMDIS ---
LACE Index Scoring Tool - Questions: Length of Stay (in days): 4 - 6 Acuity (Admit via E.D.?): Yes Comorbidities: Diabetes w/o Complication, Metastatic Solid Tumor E.D. Visits: 1 - Answers: Total Score: 13 Risk of Readmission: High Risk Care Management Discharge Reason for Hospitalization: Bacteremia Discharge Plan: He is being discharged home today with his driving. He will follow-up with PCP as directed. Patient/Family Education Needs: RN to review d/c instructions re meds and activity levels. Review of Ask me Now.
--- NOTE | 2018-11-24 10:07 | W.PM.DS.N ---
Date of service: 11/24/18 Time of Service: 10:07 DS: Diagnosis Discharge Diagnosis (1) Sepsis: Status: Acute (2) Dental abscess: Status: Acute (3) Diabetes: Status: Chronic (4) Pancreatic cancer: Status: Chronic (5) SVC syndrome: Status: Resolved (6) History of GI bleed: Status: Chronic (7) DVT prophylaxis: Status: Acute (8) Pancytopenia: Status: Acute Discharge Plan Disposition Patient Disposition: HOME Condition: Improving Discharge Details Reason For Visit: BACTEREMIA Admit Date/Time: 11/21/18 19:34 Admit Provider: Scott Laguerre Attending Provider: Scott Laguerre Primary Care Provider: Rosalva Ingram Hospital Course Hospital Course: Chief Complaint: Fevers HPI: Unfortunate 58 year old man with a prior history of Metastatic Pancreatic Ca, currently on treatment with chemotherapy, admitted from [facility] Emergency Department on 11/21 with a diagnosis of Fever and Sepsis. Mr. Ko has a past Medical History significant for Stage IV Pancreatic AdenoCarcinoma with mets to the liver (as well as with pulmonary nodules and mention of a T11 Vertebral body Sclerotic lesion), initially diagnosed in April of 2018. He follows with Dr. Noel from Oncology, and undergoes Chemotherapy through [facility]. His other medical history includes IDDM, HTN, Dyslipidemia, nephrolithiasis, Splenic Vein Thrombosis, and Depression. Also with reported history of GIB in the setting of Tali-Aguilar tear in July of 2018. Review of records also reveals a history of SVC syndrome, s/p Thrombectomy in June of 2018 at an outside institution, now chronically anticoagulated with weight based Enoxaparin. Patient reports onset of nausea, fever, and malaise the night prior to his admission. At presentation to the ED he was noted to be febrile with a temperature of 38.7, tachycardia, and an elevated Lactate, but without a leukocytosis, and with a negative CXR and urinalysis. Of note, the patient reports that during his Thrombectomy he was intubated, and ended up having a 'chipped' tooth, after which he developed a dental abscess. He was referred for admission for treatment of presumed Sepsis. This morning the patient reports continued improvement in his symptoms. He has been afebrile since admission, initially on broad spectrum antibiotics, changed to oral therapy yesterday. No overnight events were reported. Hospital Course: (1) Sepsis: Based on initial findings of Fever, Tachycardia, and elevated Lacted. Suspected dental source (Abscess) as patient's CXR and urinalysis are negative, and without any evidence of cellulitis or abscess. All Culture results negative. Discontinued Vancomycin and Pip-Tazo in favor of oral Levofloxacin and Metronidazole yesterday for coverage of dental infection in immunosuppressed patient. He has remained afebrile on this regimen over the last 24 hours, and will be discharged with instructions to finish a 10 day course of antibiotics with follow-up with his dentist, PCP, and oncologist. Given his pancytopenia, a repeat CBC will be obtained in 2-3 days as well. (2) Dental abscess: Reported infection following injury to the tooth following intubation prior to Thrombectomy. Has appointment at dental clinic later today. Continue antibiotic therapy as above. (3) Diabetes: Continue Basal insulin, BID short acting insulin. Blood sugars were poorly controlled as an inpatient, and Mr. oK is advised to follow-up with his PCP for further titration as needed, and continue to closely monitor his sugars at home. (4) Pancreatic cancer: Stage IV, with mets to the liver and possibly lung and bone. Currently undergoing chemo. Follows with Dr. Noel. Current pancytopenia may potentially be on the basis of chemo use, currently worsening but without evidence of neutropenia. Repeat CBC in 2-3 days, with follow-up with oncologist. (5) SVC syndrome: S/p Thrombectomy. Continue weight based Enoxaparin. (6) History of GI bleed: Reportedly in setting of Tali-Aguilar Tear. Appears asymptomatic. Continue PPI and monitor Hgb - currently dropping in setting of chemo use and pancytopenia. (7) DVT prophylaxis: Was maintained On therapeutic Lovenox. (8) Advance directive on file: Full Code. Home Meds and New Rx's Prescriptions: New levofloxacin [Levaquin] 750 mg Tablet 750 mg PO QAM Qty: 7 RF: 0 metronidazole 500 mg Tablet 500 mg PO Q8H Qty: 21 RF: 0 Continued enoxaparin [Lovenox] 80 mg/0.8 mL Syringe 75 mg subcut BID RF: 0 metformin 500 mg Tablet 500 mg PO BID RF: 0 atorvastatin 80 mg Tablet 80 mg PO DAILY RF: 0 ondansetron HCl 2 mg/mL Solution 4 mg RF: 0 omeprazole 40 mg Capsule,Delayed Release(Dr/Ec) 40 mg PO BID RF: 0 amlodipine 10 mg Tablet 10 mg PO DAILY RF: 0 hydrochlorothiazide 25 mg Tablet 25 mg PO DAILY RF: 0 fluoxetine 20 mg Capsule 20 mg PO DAILY RF: 0 lactobacillus combo #5 150 mg (2 billion cell) Tablet,Delayed Release (Dr/Ec) 150 mg PO DAILY RF: 0 Lantus U-100 Insulin 100 unit/mL Solution 75 unit SUBCUT BID RF: 0 Novolog U-100 Insulin aspart 100 unit/mL Solution RF: 0 lorazepam 1 mg Tablet 1 mg PO Q4H PRN PRNRF: 0 docusate sodium 100 mg Capsule 100 mg PO BID RF: 0 loratadine 10 mg Tablet 10 mg PO DAILY RF: 0 prochlorperazine maleate 5 mg Tablet RF: 0 Discharge Instructions Stand Alone Forms: Nursing Discharge Form Referrals: Rosalva Ingram [Primary Care Provider] - 12/02/18 2:30 pm Activity:: No strenuous activity Equipment/Supplies:: No Equipment Needed Diet:: Carb Counting Discharge Orders Discharge Orders: Discharge Order (Routine); Ordered 11/24/18 Ordered By: Bran Jaquez Other Ambulatory Orders: Complete Blood Count w/Diff (Routine) Timeframe: 2 Days Location: Determined by Patient Ordered By: Bran Jaquez DS: Data Vitals/I&O Vitals and I&O: Vital Signs Temperature 36.3 C L 11/24/18 08:04 Temperature Source Tympanic 11/24/18 08:04 Pulse 86 11/24/18 08:04 Pulse Rhythm Regular 11/23/18 20:00 Respiratory Rate 18 11/24/18 08:04 Respiratory Effort Non-Labored 11/23/18 20:00 Respiratory Depth Normal 11/23/18 20:00 Respiratory Pattern Normal 11/23/18 20:00 Blood Pressure 114/65 11/24/18 08:04 Blood Pressure Position Supine 11/21/18 16:52 Pulse Oximetry 98 11/24/18 08:04 Oxygen Delivery Method Room Air 11/24/18 08:04 Oxygen Flow Rate 0 11/24/18 08:04 Pain Level 0 11/23/18 15:36 Intake & Output 11/23/18 11/23/18 11/24/18 11:59 23:59 11:59 Intake Total 1100 / 2570 1470 / 2570 350 / 350 Balance 1100 / 2570 1470 / 2570 350 / 350 Weight 141.8 kg 141.9 kg Intake: IV 650 / 680 30 / 680 Oral 450 / 1890 1440 / 1890 350 / 350 Other: Comment pt gets up to void AD JONI. Voiding Methods Toilet Completed studies during hospitalization [Text1]: Exam(s) 11/21 a RAD:XR portable chest AP SYMPTOM/DIAGNOSIS: TACHYCARDIA, DRY HEAVING PORTABLE CHEST: There are no prior comparison exams. The lungs are not well inflated but appear grossly clear. There is a portal overlying the right chest with the tip projecting in the upper right atrium. The heart size is normal. IMPRESSION: No acute abnormality Labs on day of discharge: Labs from last 24 hours 11/24/18 11/24/18 11/23/18 06:55 06:55 19:56 WBC 1.71 L* D RBC 2.74 L Hgb 7.7 L Hct 25.2 L MCV 92.0 MCH 28.1 MCHC 30.6 L RDW 18.6 H Plt Count 73 L MPV 9.7 Immature Gran % 0.0 Neutrophils % 67.9 Lymphocytes % 25.1 Monocytes % 4.1 Eosinophils % 2.9 Basophils % 0.0 Absolute Neutrophils 1.16 L Absolute Lymphocytes 0.43 L Absolute Monocytes 0.07 L Absolute Eosinophils 0.05 Absolute Basophils 0.00 Differential Comment Agrees w/ instrument RBC Morphology See below Polychromasia Present Hypochromasia 1+ Poikilocytosis 1+ Anisocytosis 1+ Sodium 142 Potassium 3.9 Chloride 107 Carbon Dioxide 26.1 Anion Gap 8.9 BUN 10 Creatinine 0.65 L Estimated GFR/1.73 m2 >= 60.00 Glucose 237 H D 434 H D Calcium 8.2 L Magnesium 1.9 Vancomycin Trough 11/23/18 13:00 WBC RBC Hgb Hct MCV MCH MCHC RDW Plt Count MPV Immature Gran % Neutrophils % Lymphocytes % Monocytes % Eosinophils % Basophils % Absolute Neutrophils Absolute Lymphocytes Absolute Monocytes Absolute Eosinophils Absolute Basophils Differential Comment RBC Morphology Polychromasia Hypochromasia Poikilocytosis Anisocytosis Sodium Potassium Chloride Carbon Dioxide Anion Gap BUN Creatinine Estimated GFR/1.73 m2 Glucose Calcium Magnesium Vancomycin Trough Cancelled Preliminary micro results at discharge 11/21/18 17:42 Blood Culture - Preliminary Blood NO GROWTH 48 HOURS 11/21/18 17:35 Blood Culture - Preliminary Blood NO GROWTH 48 HOURS Blood Culture ( Age => 11 Yrs) Preliminary 11/23/18-1946 NO GROWTH 48 HOURS Urine Culture Final 11/23/18-1125 Day 1 Result NO GROWTH 24 HOURS Day 2 Result NO GROWTH 48 HOURS FORMERLY [facility], [facility]–1983 Medical History Hypomagnesemia (Acute) Hypokalemia (Acute) Sepsis (Acute) Dental abscess (Acute) Nausea & vomiting (Acute) Tali-Aguilar tear (Resolved ~07/2018) Diabetes (Chronic) Pancreatic cancer (Chronic ~04/2018) Surgical History History of lumbar laminectomy (Resolved ~04/2017) Social History Smoking/Tobacco Use Status: Former Tobacco Use Quit Date: 12/31/16 Pack-years: 5 Alcohol Intake: former Household members: spouse Do you feel safe at home: Yes Do you feel safe in your relationship?: Yes
[2018-11-24] MEDS: Potassium Chloride 20 MEQ TABCR PO (10:08)
[2018-11-24] MEDS: Magnesium Oxide 400 MG TAB PO (10:08)
--- NOTE | 2018-11-24 11:05 | CMDISCH_ITS ---
LACE Index Scoring Tool - Questions: Length of Stay (in days): 4 - 6 Acuity (Admit via E.D.?): Yes Comorbidities: Diabetes w/o Complication, Metastatic Solid Tumor E.D. Visits: 1 - Answers: Total Score: 13 Risk of Readmission: High Risk Care Management Discharge Reason for Hospitalization: Bacteremia Discharge Plan: He is being discharged home today with his driving. He will follow-up with PCP as directed. Patient/Family Education Needs: RN to review d/c instructions re meds and act ivity levels. Review of Ask me Now.
== END 2018-11-24 11:27 | disposition home or self-care (01) | DRG 871 ==
LOC: ER 19:40 → MS 20:05
PROVIDERS: Family Medicine; Admitting Provider Family Medicine; Emergency Provider Student in an Organized Health Care Education/Training Program; PCP Nurse Practitioner Primary Care; Visit Provider Internal Medicine
DX: A41.9 Sepsis, unspecified organism (principal); D61.810 Antineoplastic chemotherapy induced pancytopenia; C25.9 Malignant neoplasm of pancreas, unspecified; I87.1 Compression of vein; C78.7 Secondary malignant neoplasm of liver and intrahepatic bile duct; R11.2 Nausea with vomiting, unspecified; K04.7 Periapical abscess without sinus; E87.6 Hypokalemia; E83.42 Hypomagnesemia; E11.65 Type 2 diabetes mellitus with hyperglycemia; Z79.899 Other long term (current) drug therapy; Z79.4 Long term (current) use of insulin; I10 Essential (primary) hypertension; E78.5 Hyperlipidemia, unspecified; T45.1X5A Adverse effect of antineoplastic and immunosuppressive drugs, initial encounter; Z87.19 Personal history of other diseases of the digestive system; Z45.2 Encounter for adjustment and management of vascular access device
CPT/HCPCS: 36415; 80048; 80053; 82947; 83690; 87040; 93005; 96361; 96365; 96375; 99223; 99232; 99233; 99239; 99285; 71045; 80202; 81003; 81015; 83036; 83605; 83735; 83880; 84443; 84484; 85025; 85610; 85730; 87086; 93010; J1650; J1815; J2405; J2543; J3475; J3480

== ENCOUNTER 2018-11-26 10:46 | Outpatient (RCR) | payer OTHER, SELFPAY ==
[2018-11-19] MEDS: Normal Saline Flush 10 ML SYR IVP (09:50)
[2018-11-19 10:18] LABS: Abs Immature Grans 0.03 k/cumm (0.0-0.09); Absolute Basophil Count 0.02 k/cumm (0.0-0.2); Absolute Eosinophil Count 0.14 k/cumm (0.0-0.7); Absolute Lymphocyte Count 1.18 k/cumm (1.2-3.4); Absolute Monocyte Count 0.36 k/cumm (0.11-0.7); Absolute Neutrophil Count 3.09 k/cumm (1.2-6.7); Basophils % 0.4; Eosinophils % 2.9; HCT 34.9 % (40.0-50.0); HGB 10.9 g/dL (13.5-17.5); Immature Grans % 0.6; Lymphocytes % 24.5; Mean Corp. HGB Concentration 31.2 g/dL (32.0-36.0); Mean Corpuscular Hemoglobin 28.5 pg (27.0-33.0); Mean Corpuscular Volume 91.1 fL (80-95); Mean Platelet Volume 10.4 fL (8.0-11.0); Monocytes % 7.5; Neutrophils % 64.1; Platelet Count 122 x1000/uL (130-400); RBC 3.83 m/cumm (4.50-6.00); RBC Distribution Width 19.4 % (11.8-14.1); White Blood Cell Count 4.82 k/cumm (4.4-10.8)
[2018-11-19 10:37] LABS: ALT 42 U/L (12-78); AST 31 U/L (15-37); Albumin 3.9 g/dL (3.4-5.0); Alkaline Phosphatase 99 U/L (46-116); Anion Gap 13.6 mmol/L (3-11); BUN 16 mg/dL (7-18); Bilirubin, Total 0.4 mg/dL (0.2-1.0); CO2 25.4 mmol/L (21.0-32.0); CREATININE 0.82 mg/dL (0.70-1.30); Chloride 103 mmol/L (98-107); Glucose 194 mg/dL (70-100); Potassium 3.8 mmol/L (3.5-5.1); Sodium 142 mmol/L (136-145); Total Protein 7.6 g/dL (6.4-8.2)
[2018-11-19 10:38] LABS: Anisocytosis 2+; Diff Comment RBC Morph Reviewed
[2018-11-19 10:39] LABS: Poikilocytes 1+
[2018-11-19 11:48] LABS: Magnesium 1.4 mg/dL (1.8-2.4)
[2018-11-20 10:39] LABS: CEA 2.8 ng/ml
[2018-11-20 14:12] LABS: CA 19-9 7174 U/mL (<35)
[2018-11-26] MEDS: Normal Saline Flush 10 ML SYR IVP (10:40)
[2018-11-26 10:59] LABS: Abs Immature Grans 0.08 k/cumm (0.0-0.09); HCT 32.2 % (40.0-50.0); HGB 10.1 g/dL (13.5-17.5); Mean Corp. HGB Concentration 31.4 g/dL (32.0-36.0); Mean Corpuscular Hemoglobin 28.7 pg (27.0-33.0); Mean Corpuscular Volume 91.5 fL (80-95); Mean Platelet Volume 9.8 fL (8.0-11.0); RBC 3.52 m/cumm (4.50-6.00); RBC Distribution Width 18.7 % (11.8-14.1); White Blood Cell Count 3.73 k/cumm (4.4-10.8)
[2018-11-26 11:15] LABS: Absolute Lymphocyte Count 0.75 k/cumm (1.2-3.4); Absolute Monocyte Count 0.22 k/cumm (0.11-0.7); Absolute Neutrophil Count 2.69 k/cumm (1.2-6.7); Platelet Count 86 x1000/uL (130-400)
[2018-11-26 11:16] LABS: ALT 46 U/L (12-78); AST 22 U/L (15-37); Albumin 3.3 g/dL (3.4-5.0); Alkaline Phosphatase 130 U/L (46-116); Anion Gap 13.7 mmol/L (3-11); Anisocytosis 2+; BUN 11 mg/dL (7-18); Basophilic Stippling Present; Bilirubin, Total 0.3 mg/dL (0.2-1.0); CO2 24.3 mmol/L (21.0-32.0); CREATININE 0.99 mg/dL (0.70-1.30); Calcium 9.3 mg/dL (8.5-10.1); Chloride 100 mmol/L (98-107); Diff Comment Manual Differential; Glucose 498 mg/dL (70-100); Magnesium 1.3 mg/dL (1.8-2.4); Poikilocytes 1+; Polychromasia Present; Sodium 138 mmol/L (136-145); Total Protein 7.6 g/dL (6.4-8.2)
[2018-11-27 12:53] LABS: CA 19-9 9903 U/mL (<35)
== END 2018-11-29 23:59 | disposition home or self-care (01) ==
LOC: INF 10:46
PROVIDERS: Internal Medicine Hematology & Oncology; PCP Nurse Practitioner Primary Care; Visit Provider Nurse Practitioner Adult Health
DX: C25.9 Malignant neoplasm of pancreas, unspecified (principal); C78.7 Secondary malignant neoplasm of liver and intrahepatic bile duct; Z45.2 Encounter for adjustment and management of vascular access device
CPT/HCPCS: 36591; 80053; 82378; 83735; 85025; 86301

== ENCOUNTER 2018-11-28 13:04 | Inpatient (IN) | payer BC, OTHER, SELFPAY ==
[2018-11-28] VITALS (33 sets, daily range): BP systolic 93–134; BP diastolic 39–79; PULSE 93–119; RESP 15–36; TEMP 36.8–38.2; O2SAT 94–97
--- NOTE | 2018-11-28 13:36 | W.ED.GENAD ---
Discharge Plan Disposition Patient Disposition: [facility] INPATIENT Condition: Stable Discharge Details Chief Complaint: Nausea/Vomit/Diar Clinical Impression: Pancreatic cancer, Hypomagnesemia, Cellulitis Primary Care Provider: Rosalva Ingram ED Provider: Odin Guy Home Meds and New Rx's Prescriptions: No Action enoxaparin [Lovenox] 80 mg/0.8 mL Syringe 75 mg subcut BID RF: 0 metformin 500 mg Tablet 500 mg PO BID RF: 0 atorvastatin 80 mg Tablet 80 mg PO DAILY RF: 0 ondansetron HCl 2 mg/mL Solution 4 mg RF: 0 omeprazole 40 mg Capsule,Delayed Release(Dr/Ec) 40 mg PO BID RF: 0 amlodipine 10 mg Tablet 10 mg PO DAILY RF: 0 hydrochlorothiazide 25 mg Tablet 25 mg PO DAILY RF: 0 fluoxetine 20 mg Capsule 20 mg PO DAILY RF: 0 lactobacillus combo #5 150 mg (2 billion cell) Tablet,Delayed Release (Dr/Ec) 150 mg PO DAILY RF: 0 Lantus U-100 Insulin 100 unit/mL Solution 75 unit SUBCUT BID RF: 0 Novolog U-100 Insulin aspart 100 unit/mL Solution RF: 0 lorazepam 1 mg Tablet 1 mg PO Q4H PRN PRNRF: 0 docusate sodium 100 mg Capsule 100 mg PO BID RF: 0 loratadine 10 mg Tablet 10 mg PO DAILY RF: 0 prochlorperazine maleate 5 mg Tablet RF: 0 levofloxacin [Levaquin] 750 mg Tablet 750 mg PO QAM Qty: 7 RF: 0 metronidazole 500 mg Tablet 500 mg PO Q8H Qty: 21 RF: 0 Medical Decision Making 58-year-old male with stage IV metastatic pancreatic cancer. He underwent chemotherapy this week, subsequent to which she is had 2 days of nausea, vomiting, loose stools, with interval development of lower extremity erythematous rash and subjective fever. He arrives a temperature 37, mild tachycardia to 119, normal blood pressure 123/67. His exam is concerning for developing cellulitis of the bilateral lower extremity. He has been recovering from a dental infection for which she was admitted to the hospital November 21 November 24, and discharged on Levaquin and Flagyl which he continues to take. He arrives a temperature 37.8, pulse is 119, blood pressure 123/67. His exam is notable for erythematous pretibial regions bilaterally that are warm to the touch and sandra. Differential diagnosis includes cellulitis, he has had a recent dental infection for which she is been taking the antibiotics, dehydration, developing sepsis. Laboratories including lactic acid and blood culture obtained. Patient referred for chest x-ray and CT scan of the abdomen and pelvis. Diagnostics reveal a sodium of 135, magnesium 1.0, slight elevation of AST and ALT to 131 and 153. CBC reveals a white blood cell count of 4.8, hematocrit of 30.7, platelets 57, ANC of 4.3. Imaging studies unremarkable for acute process. See formal report Patient high risk for overwhelming sepsis, therefore after blood cultures, broad-spectrum antibiotics initiated with vancomycin and Zosyn. Case discussed with Dr. Salazar and patient to be admitted. Lab Data Lab results reviewed: Yes I reviewed the patient's lab results. Laboratory Results - last 24 hr 11/28/18 11/28/18 11/28/18 13:45 13:45 13:45 WBC Cancelled RBC Cancelled Hgb Cancelled Hct Cancelled MCV Cancelled MCH Cancelled MCHC Cancelled RDW Cancelled Plt Count Cancelled MPV Cancelled Immature Gran % Cancelled Neutrophils % Cancelled Band Neutrophils % Cancelled Lymphocytes % Cancelled Atypical Lymphs % Cancelled Monocytes % Cancelled Eosinophils % Cancelled Basophils % Cancelled Metamyelocytes % Cancelled Myelocytes % Cancelled Promyelocytes % Cancelled Absolute Neutrophils Cancelled Absolute Lymphocytes Cancelled Absolute Monocytes Cancelled Absolute Eosinophils Cancelled Absolute Basophils Cancelled Nucleated RBCs Cancelled Differential Comment Cancelled Other Cell Type Cancelled RBC Morphology Cancelled Polychromasia Cancelled Hypochromasia Cancelled Poikilocytosis Cancelled Basophilic Stippling Cancelled Anisocytosis Cancelled Microcytosis Cancelled Macrocytosis Cancelled Spherocytes Cancelled Target Cells Cancelled Tear Drop Cells Cancelled Ovalocytes Cancelled Stomatocytes Cancelled [place] Bodies Cancelled [place] Cells Cancelled Acanthocytes (Spur) Cancelled Schistocytes Cancelled Sodium 135 L Potassium 3.6 Chloride 98 Carbon Dioxide 24.4 Anion Gap 12.6 H BUN 14 Creatinine 1.04 Estimated GFR/1.73 m2 >= 60.00 Glucose 231 H D Lactate 2.6 H Calcium 8.8 Magnesium 1.0 L Total Bilirubin 0.7 AST 131 H ALT 153 H Alkaline Phosphatase 95 Total Protein 7.2 Albumin 3.3 L 11/28/18 14:07 WBC 4.82 RBC 3.49 L Hgb 10.0 L Hct 30.7 L MCV 88.0 MCH 28.7 MCHC 32.6 RDW 18.1 H Plt Count 57 L MPV 11.1 H Immature Gran % 0.2 Neutrophils % 90.8 Band Neutrophils % Lymphocytes % 7.3 Atypical Lymphs % Monocytes % 1.7 Eosinophils % 0.0 Basophils % 0.0 Metamyelocytes % Myelocytes % Promyelocytes % Absolute Neutrophils 4.38 Absolute Lymphocytes 0.35 L Absolute Monocytes 0.08 L Absolute Eosinophils 0.00 Absolute Basophils 0.00 Nucleated RBCs Differential Comment Rbc morph reviewed Other Cell Type RBC Morphology See below Polychromasia Present Hypochromasia Poikilocytosis 1+ Basophilic Stippling Anisocytosis 2+ Microcytosis Macrocytosis Spherocytes Target Cells Tear Drop Cells Ovalocytes Stomatocytes [place] Bodies [place] Cells Acanthocytes (Spur) Schistocytes Sodium Potassium Chloride Carbon Dioxide Anion Gap BUN Creatinine Estimated GFR/1.73 m2 Glucose Lactate Calcium Magnesium Total Bilirubin AST ALT Alkaline Phosphatase Total Protein Albumin HPI General Mode of arrival: ambulatory. Date/Time Provider Initiated Documentation: 11/28/18 13:08. Limitations to Documentation: no limitations. Information obtained by: patient and family. History of Present Illness 58 year old M presents to the emergency department with the chief complaint of Nausea, vomiting, diarrhea, fever and chills, described as moderate, Quality is described as other (Generally weak), Patient started experiencing this day(s) and it has been constant. No relieving factors improve symptom(s), No exacerbating factors reported . Patient notes fever/chills, nausea/vomiting and other (Loose stool, erythematous lower extremities skin change). Patient did receive the following treatments prior to arrival, none Related Data Home Medications Medication Instructions Recorded Confirmed Lantus U-100 Insulin 75 unit SUBCUT BID 11/21/18 11/28/18 Novolog U-100 Insulin aspart 11/21/18 amlodipine 10 mg PO DAILY 11/21/18 11/28/18 atorvastatin 80 mg PO DAILY 11/21/18 11/28/18 docusate sodium 100 mg PO BID 11/21/18 11/28/18 enoxaparin [Lovenox] 75 mg SUBCUT BID 11/21/18 11/28/18 fluoxetine 20 mg PO DAILY 11/21/18 11/28/18 hydrochlorothiazide 25 mg PO DAILY 11/21/18 11/28/18 lactobacillus combo #5 150 mg PO DAILY 11/21/18 11/28/18 loratadine 10 mg PO DAILY 11/21/18 11/28/18 lorazepam 1 mg PO Q4H PRN PRN 11/21/18 11/28/18 metformin 500 mg PO BID 11/21/18 11/28/18 omeprazole 40 mg PO BID 11/21/18 11/28/18 ondansetron HCl 4 mg 11/21/18 prochlorperazine maleate 11/21/18 levofloxacin [Levaquin] 750 mg PO QAM #7 tab 11/24/18 11/28/18 metronidazole 500 mg PO Q8H #21 tab 11/24/18 11/28/18 Previous Rx's Medication Instructions Recorded levofloxacin [Levaquin] 750 mg PO QAM #7 tab 11/24/18 metronidazole 500 mg PO Q8H #21 tab 11/24/18 Allergies Allergy/AdvReac Type Severity Reaction Status Date / Time No Known Allergies Allergy Unverified 11/28/18 13:20 General Stated Complaint: Nausea/Vomit/Diar JUMA: 2 Review of Systems Review of Systems Admitted November 21- for right lower premolar dental infection, on antibiotics, 8 systems reviewed and otherwise negative. [facility] Medical History Hypomagnesemia (Acute) Hypokalemia (Acute) Sepsis (Acute) Dental abscess (Acute) Nausea & vomiting (Acute) Tali-Aguilar tear (Resolved ~07/2018) Diabetes (Chronic) Pancreatic cancer (Chronic ~04/2018) Surgical History History of lumbar laminectomy (Resolved ~04/2017) Social History Smoking/Tobacco Use Status: Former Tobacco Use Quit Date: 12/31/16 Pack-years: 5 Alcohol Intake: former Household members: spouse Do you feel safe at home: Yes Do you feel safe in your relationship?: Yes Exam Narrative Exam Narrative: GEN: awake, alert, oriented 3. Pleasant, well groomed, interactive. HEAD: Normocephalic, atraumatic ENT: Mucous membranes moist, oropharynx with right mandibular molar tenderness without significant fluctuance or swelling, External ear exam unremarkable EYES: PERRL, EOMI NECK: Full ROM, no CARLOS, no menigismus CHEST/RESP: Right anterior palpable port, nontender, clear to auscultation bilateral, no wheeze/rhonchi/rales CARDIOVASCULAR: Regular and tachycardic, no murmur, rub brandi. 2+ Rad pulse bilateral ABDOMEN: Soft, nontender, no mass. +Bowel sounds EXT: Full ROM, trace pretibial edema bilaterally. There is warm, blanching erythema to the bilateral lower extremity overlying the pretibial area. 2+ palpable dp Neuro: Grossly normal neurologic exam, conversant, interactive. Psych: Speech fluent, thoughts congruent, affect normal Course Vital Signs Temperature 37.8 C H 11/28/18 13:15 Pulse 119 H 11/28/18 13:15 Respiratory Rate 23 11/28/18 13:15 Blood Pressure 123/67 11/28/18 13:15 Temperature 37.8 C H 11/28/18 13:15 Temperature Source Skin 11/28/18 13:15 Pulse 119 H 11/28/18 13:15 Respiratory Rate 23 11/28/18 13:15 Respiratory Effort Non-Labored 11/28/18 13:15 Blood Pressure 123/67 11/28/18 13:15 Pain Level 0 11/28/18 13:15
--- NOTE | 2018-11-28 13:40 | ED.GENADUL_ITS ---
Discharge Plan Disposition Patient Disposition: [facility] INPATIENT Condition: Stable Discharge Details Chief Complaint: Nausea/Vomit/Diar Clinical Impression: Pancreatic cancer, Hypomagnesemia, Cellulitis Primary Care Provider: Rosalva Ingram ED Provider: Odin Guy Home Meds and New Rx's Prescriptions: No Action enoxaparin [Lovenox] 80 mg/0.8 mL Syringe 75 mg subcut BID RF: 0 metformin 500 mg Tablet 500 mg PO BID RF: 0 atorvastatin 80 mg Tablet 80 mg PO DAILY RF: 0 ondansetron HCl 2 mg/mL Solution 4 mg RF: 0 omeprazole 40 mg Capsule,Delayed Release(Dr/Ec) 40 mg PO BID RF: 0 amlodipine 10 mg Tablet 10 mg PO DAILY RF: 0 hydrochlorothiazide 25 mg Tablet 25 mg PO DAILY RF: 0 fluoxetine 20 mg Capsule 20 mg PO DAILY RF: 0 lactobacillus combo #5 150 mg (2 billion cell) Tablet,Delayed Release (Dr/Ec) 150 mg PO DAILY RF: 0 Lantus U-100 Insulin 100 unit/mL Solution 75 unit SUBCUT BID RF: 0 Novolog U-100 Insulin aspart 100 unit/mL Solution RF: 0 lorazepam 1 mg Tablet 1 mg PO Q4H PRN PRNRF: 0 docusate sodium 100 mg Capsule 100 mg PO BID RF: 0 loratadine 10 mg Tablet 10 mg PO DAILY RF: 0 prochlorperazine maleate 5 mg Tablet RF: 0 levofloxacin [Levaquin] 750 mg Tablet 750 mg PO QAM Qty: 7 RF: 0 metronidazole 500 mg Tablet 500 mg PO Q8H Qty: 21 RF: 0 Medical Decision Making 58-year-old male with stage IV metastatic pancreatic cancer. He underwent chemotherapy this week, subsequent to which she is had 2 days of nausea, vomiting, loose stools, with interval development of lower extremity erythematous rash and subjective fever. He arrives a temperature 37, mild tachycardia to 119, normal blood pressure 123/67. His exam is concerning for developing cellulitis of the bilateral lower extremity. He has been recovering from a dental infection for which she was admitted to the hospital November 21 November 24, and discharged on Levaquin and Flagyl which he continues to take. He arrives a temperature 37.8, pulse is 119, blood pressure 123/67. His exam is notable for erythematous pretibial regions bilaterally that are warm to the touch and sandra. Differential diagnosis includes cellulitis, he has had a recent dental infection for which she is been taking the antibiotics, dehydration, developing sepsis. Laboratories including lactic acid and blood culture obtained. Patient referred for chest x-ray and CT scan of the abdomen and pelvis. Diagnostics reveal a sodium of 135, magnesium 1.0, slight elevation of AST and ALT to 131 and 153. CBC reveals a white blood cell count of 4.8, hematocrit of 30.7, platelets 57, ANC of 4.3. Imaging studies unremarkable for acute process. See formal report Patient high risk for overwhelming sepsis, therefore after blood cultures, broad-spectrum antibiotics initiated with vancomycin and Zosyn. Case discussed with Dr. Salazar and patient to be admitted. Lab Data Lab results reviewed: Yes I reviewed the patient's lab results. Laboratory Results - last 24 hr 11/28/18 11/28/18 11/28/18 13:45 13:45 13:45 WBC Cancelled RBC Cancelled Hgb Cancelled Hct Cancelled MCV Cancelled MCH Cancelled MCHC Cancelled RDW Cancelled Plt Count Cancelled MPV Cancelled Immature Gran % Cancelled Neutrophils % Cancelled Band Neutrophils % Cancelled Lymphocytes % Cancelled Atypical Lymphs % Cancelled Monocytes % Cancelled Eosinophils % Cancelled Basophils % Cancelled Metamyelocytes % Cancelled Myelocytes % Cancelled Promyelocytes % Cancelled Absolute Neutrophils Cancelled Absolute Lymphocytes Cancelled Absolute Monocytes Cancelled Absolute Eosinophils Cancelled Absolute Basophils Cancelled Nucleated RBCs Cancelled Differential Comment Cancelled Other Cell Type Cancelled RBC Morphology Cancelled Polychromasia Cancelled Hypochromasia Cancelled Poikilocytosis Cancelled Basophilic Stippling Cancelled Anisocytosis Cancelled Microcytosis Cancelled Macrocytosis Cancelled Spherocytes Cancelled Target Cells Cancelled Tear Drop Cells Cancelled Ovalocytes Cancelled Stomatocytes Cancelled [place] Bodies Cancelled [place] Cells Cancelled Acanthocytes (Spur) Cancelled Schistocytes Cancelled Sodium 135 L Potassium 3.6 Chloride 98 Carbon Dioxide 24.4 Anion Gap 12.6 H BUN 14 Creatinine 1.04 Estimated GFR/1.73 m2 >= 60.00 Glucose 231 H D Lactate 2.6 H Calcium 8.8 Magnesium 1.0 L Total Bilirubin 0.7 AST 131 H ALT 153 H Alkaline Phosphatase 95 Total Protein 7.2 Albumin 3.3 L 11/28/18 14:07 WBC 4.82 RBC 3.49 L Hgb 10.0 L Hct 30.7 L MCV 88.0 MCH 28.7 MCHC 32.6 RDW 18.1 H Plt Count 57 L MPV 11.1 H Immature Gran % 0.2 Neutrophils % 90.8 Band Neutrophils % Lymphocytes % 7.3 Atypical Lymphs % Monocytes % 1.7 Eosinophils % 0.0 Basophils % 0.0 Metamyelocytes % Myelocytes % Promyelocytes % Absolute Neutrophils 4.38 Absolute Lymphocytes 0.35 L Absolute Monocytes 0.08 L Absolute Eosinophils 0.00 Absolute Basophils 0.00 Nucleated RBCs Differential Comment Rbc morph reviewed Other Cell Type RBC Morphology See below Polychromasia Present Hypochromasia Poikilocytosis 1+ Basophilic Stippling Anisocytosis 2+ Microcytosis Macrocytosis Spherocytes Target Cells Tear Drop Cells Ovalocytes Stomatocytes [place] Bodies [place] Cells Acanthocytes (Spur) Schistocytes Sodium Potassium Chloride Carbon Dioxide Anion Gap BUN Creatinine Estimated GFR/1.73 m2 Glucose Lactate Calcium Magnesium Total Bilirubin AST ALT Alkaline Phosphatase Total Protein Albumin HPI General Mode of arrival: ambulatory . Date/Time Provider Initiated Documentation: 11/28/18 13:08 . Limitations to Documentation: no limitations . Information obtained by: patient and family . History of Present Illness 58 year old M presents to the emergency department with the chief complaint of Nausea, vomiting, diarrhea, fever and chills, described as moderate, Quality is described as other (Generally weak), Patient started experiencing this day(s) and it has been constant. No relieving factors improve symptom(s), No exacerbating factors reported . Patient notes fever/chills, nausea/vomiting and other (Loose stool, erythematous lower extremities skin change). Patient did receive the following treatments prior to arrival, none Related Data Home Medications Medication Instructions Recorded Confirmed Lantus U-100 Insulin 75 unit SUBCUT BID 11/21/18 11/28/18 Novolog U-100 Insulin aspart 11/21/18 amlodipine 10 mg PO DAILY 11/21/18 11/28/18 atorvastatin 80 mg PO DAILY 11/21/18 11/28/18 docusate sodium 100 mg PO BID 11/21/18 11/28/18 enoxaparin [Lovenox] 75 mg SUBCUT BID 11/21/18 11/28/18 fluoxetine 20 mg PO DAILY 11/21/18 11/28/18 hydrochlorothiazide 25 mg PO DAILY 11/21/18 11/28/18 lactobacillus combo #5 150 mg PO DAILY 11/21/18 11/28/18 loratadine 10 mg PO DAILY 11/21/18 11/28/18 lorazepam 1 mg PO Q4H PRN PRN 11/21/18 11/28/18 metformin 500 mg PO BID 11/21/18 11/28/18 omeprazole 40 mg PO BID 11/21/18 11/28/18 ondansetron HCl 4 mg 11/21/18 prochlorperazine maleate 11/21/18 levofloxacin [Levaquin] 750 mg PO QAM #7 tab 11/24/18 11/28/18 metronidazole 500 mg PO Q8H #21 tab 11/24/18 11/28/18 Previous Rx's Medication Instructions Recorded levofloxacin [Levaquin] 750 mg PO QAM #7 tab 11/24/18 metronidazole 500 mg PO Q8H #21 tab 11/24/18 Allergies Allergy/AdvReac Type Severity Reaction Status Date / Time No Known Allergies Allergy Unverified 11/28/18 13:20 General Stated Complaint: Nausea/Vomit/Diar JUMA: 2 Review of Systems Review of Systems Admitted November 21- for right lower premolar dental infection, on antibiotics, 8 systems reviewed and otherwise negative. [facility] Medical History Hypomagnesemia (Acute) Hypokalemia (Acute) Sepsis (Acute) Dental abscess (Acute) Nausea & vomiting (Acute) Tali-Aguilar tear (Resolved ~07/2018) Diabetes (Chronic) Pancreatic cancer (Chronic ~04/2018) Surgical History History of lumbar laminectomy (Resolved ~04/2017) Social History Smoking/Tobacco Use Status: Former Tobacco Use Quit Date: 12/31/16 Pack-years: 5 Alcohol Intake: former Household members: spouse Do you feel safe at home: Yes Do you feel safe in your relationship?: Yes Exam Narrative Exam Narrative: GEN: awake, alert, oriented 3. Pleasant, well groomed, interactive. HEAD: Normocephalic, atraumatic ENT: Mucous membranes moist, oropharynx with right mandibular molar tenderness without significant fluctuance or swelling, External ear exam unremarkable EYES: PERRL, EOMI NECK: Full ROM, no CARLOS, no menigismus CHEST/RESP: Right anterior palpable port, nontender, clear to auscultation bilateral, no wheeze/rhonchi/rales CARDIOVASCULAR: Regular and tachycardic, no murmur, rub brandi. 2+ Rad pulse bilateral ABDOMEN: Soft, nontender, no mass. +Bowel sounds EXT: Full ROM, trace pretibial edema bilaterally. There is warm, blanching erythema to the bilateral lower extremity overlying the pretibial area. 2+ palpable dp Neuro: Grossly normal neurologic exam, conversant, interactive. Psych: Speech fluent, thoughts congruent, affect normal Course Vital Signs Temperature 37.8 C H 11/28/18 13:15 Pulse 119 H 11/28/18 13:15 Respiratory Rate 23 11/28/18 13:15 Blood Pressure 123/67 11/28/18 13:15 Temperature 37.8 C H 11/28/18 13:15 Temperature Source Skin 11/28/18 13:15 Pulse 119 H 11/28/18 13:15 Respiratory Rate 23 11/28/18 13:15 Respiratory Effort Non-Labored 11/28/18 13:15 Blood Pressure 123/67 11/28/18 13:15 Pain Level 0 11/28/18 13:15
[2018-11-28] MEDS: Normal Saline 1,000 ML 1000 ML IV (13:50)
[2018-11-28 13:52] LABS: Lactate-non-spesis 2.6 mmol/l (0.6-1.4)
[2018-11-28] MEDS: Ondansetron 4 MG/2 ML VIAL IVP (13:58)
--- NOTE | 2018-11-28 14:07 | DI.CT_ITS ---
SYMPTOM/DIAGNOSIS: N/V/D/ FEVER, STAGE [address] ABDOMEN AND PELVIS: There are no recent exams available for comparison. Images were performed from the lung bases through the ischial tuberosities after IV contrast. There is a mass in the tail of the pancreas which appears ill defined. The mass courses around the splenic vessels but there is no evidence of occlusion There is metastasis in the; left adrenal gland measuring 3.8 cm. There is also metastasis in the caudate lobe of the liver measuring 4 cm. There are several other smaller low density lesions seen elsewhere in the liver. The liver shows fatty infiltration. The spleen appears mildly enlarged. No focal splenic lesion is seen. The gallbladder, right adrenal and kidneys are unremarkable. The lung bases show motion. No pulmonary nodules are identified. There is air and increased density in the anterior abdominal soft tissues secondary to injections. The bladder and prostate are unremarkable. There is no bowl dilatation or inflammatory change. Laminectomy defects are seen in the lumbar spine. There are a few sclerotic lesions in the lumbar spine consistent with bony metastases. IMPRESSION: Pancreatic mass. Liver metastases. Left adrenal metastasis as well as bony metastases. No acute abnormality is identified.
[2018-11-28] MEDS: PIPERACILLIN/TAZO 3.375 GM in Normal Saline 50 ML IVPB (14:08)
[2018-11-28 14:16] LABS: Abs Immature Grans 0.01 k/cumm (0.0-0.09); Absolute Lymphocyte Count 0.35 k/cumm (1.2-3.4); Absolute Monocyte Count 0.08 k/cumm (0.11-0.7); Absolute Neutrophil Count 4.38 k/cumm (1.2-6.7); HCT 30.7 % (40.0-50.0); Immature Grans % 0.2; Lymphocytes % 7.3; Mean Corp. HGB Concentration 32.6 g/dL (32.0-36.0); Mean Corpuscular Hemoglobin 28.7 pg (27.0-33.0); Mean Platelet Volume 11.1 fL (8.0-11.0); Monocytes % 1.7; Neutrophils % 90.8; RBC 3.49 m/cumm (4.50-6.00); RBC Distribution Width 18.1 % (11.8-14.1); White Blood Cell Count 4.82 k/cumm (4.4-10.8)
[2018-11-28 14:16] LABS: ALT 153 U/L (12-78); AST 131 U/L (15-37); Albumin 3.3 g/dL (3.4-5.0); Alkaline Phosphatase 95 U/L (46-116); Anion Gap 12.6 mmol/L (3-11); BUN 14 mg/dL (7-18); Bilirubin, Total 0.7 mg/dL (0.2-1.0); CO2 24.4 mmol/L (21.0-32.0); CREATININE 1.04 mg/dL (0.70-1.30); Calcium 8.8 mg/dL (8.5-10.1); Chloride 98 mmol/L (98-107); Glucose 231 mg/dL (70-100); Potassium 3.6 mmol/L (3.5-5.1); Sodium 135 mmol/L (136-145); Total Protein 7.2 g/dL (6.4-8.2)
[2018-11-28 14:33] LABS: Anisocytosis 2+; Diff Comment RBC Morph Reviewed; Platelet Count 57 x1000/uL (130-400); Polychromasia Present
[2018-11-28 14:34] LABS: Poikilocytes 1+
--- NOTE | 2018-11-28 14:40 | DI.RAD_ITS ---
SYMPTOM/DIAGNOSIS: FEVER, PANCREATIC CA PA AND LATERAL CHEST: Comparison is made with portable exams 21 November 2018. The heart size is normal. A port is again noted over the right upper chest. The lungs appear clear. There is no pneumothorax. IMPRESSION: No acute abnormality.
[2018-11-28] MEDS: Omnipaque 350 MG/ML 100 ML BTL IJ (14:49)
[2018-11-28] MEDS: Omnipaque 350 MG/ML 50 ML BTL IJ (14:54)
[2018-11-28] MEDS: VANCOMYCIN 1,500 MG in Normal Saline 250 ML 166.6666 MG IVPB (15:15)
--- NOTE | 2018-11-28 15:19 | DI.VRAD_ITS ---
EXAM: XR Chest, 2 Views EXAM DATE/TIME: 11/28/2018 1:37 PM CLINICAL HISTORY: 58 years old, male; Patient HX: Fever, stage 4 pancreatic CA. TECHNIQUE: Imaging protocol: XR of the chest, 2 views. COMPARISON: SC XR PORTABLE CHEST AP 11/21/2018 5:10 PM FINDINGS: Right-sided Port-A-Cath in good position. The lung vitale are clear bilaterally. No focal pulmonary consolidation is present. The cardiac silhouette is within normal limits. The costophrenic angles are sharp. The bony structures appear unremarkable. IMPRESSION: No evidence of acute cardiopulmonary disease. Dictated and Authenticated by: Klever Carmona MD. Ordering:EARLE Newby MD
[2018-11-28] MEDS: MAGNESIUM SULFATE 2 GM/50 ML BAG IVPB (15:20)
--- NOTE | 2018-11-28 15:24 | DI.VRAD_ITS ---
EXAM: CT Abdomen and Pelvis With Contrast EXAM DATE/TIME: 11/28/2018 2:08 PM CLINICAL HISTORY: 58 years old, male; Other: N/v/d. Fever. Stage 4 pancreatic CA TECHNIQUE: Imaging protocol: Axial computed tomography images of the abdomen and pelvis with intravenous contrast. Coronal and sagittal reformatted images were created and reviewed. Radiation optimization: All CT scans at this facility use at least one of these dose optimization techniques: automated exposure control; mA and/or kV adjustment per patient size (includes targeted exams where dose is matched to clinical indication); or iterative reconstruction. Contrast material: OMNIPAQUE 350; Contrast volume: 125 ml; Contrast route: IV; COMPARISON: No relevant prior studies available. FINDINGS: Lung bases clear. 3.4 cm mass in the tail of the pancreas consistent with the history of pancreatic carcinoma. 3.7 cm mass in the caudate lobe of the liver consistent with metastatic disease with a 2.1 cm hypodensity in the right lobe also in keeping with metastatic disease. 3.8 cm left adrenal mass suggestive of metastatic disease. 1.7 cm lower right lobe of liver Mass consistent with metastatic disease. No abnormal fluid collection. No significant hydronephrosis. No evidence of bowel traction. IMPRESSION: 1. Findings consistent with metastatic pancreatic carcinoma. 2. No other specific etiology identified for the patient's symptoms. Dictated and Authenticated by: Klever Carmona MD. Ordering:EARLE Newby MD
[2018-11-28] MEDS: Ibuprofen 600 MG TAB PO (15:25)
[2018-11-28] MEDS: Normal Saline 250 ML 200 ML IV (15:30)
[2018-11-28 16:13] LABS: Bilirubin Negative (Negative); Blood Negative (Negative); Clarity Clear (Clear); Glucose Negative (Negative); Ketones Negative (Negative); Leukocyte Esterase Negative (Negative); Nitrite Negative (Negative); Specific Gravity <= 1.005 (1.005-1.025); Urobilinogen 0.2 EU/dL (Up TO 0.2)
[2018-11-28 16:29] LABS: Bacteria Negative HPF (Negative); C & S Indicated? No; Casts 0-2 Hyaline LPF (Negative); Crystals Negative HPF (Negative); Epithelial Cells Rare HPF (Negative); Mucus Negative (Negative); RBC Negative (0-2); WBC 0-2 HPF (0-5)
--- NOTE | 2018-11-28 16:58 | W.PM.HP.N ---
Date of service: 11/28/18 Time of Service: 16:58 Assessment and Plan (1) Sepsis: Current visit: Yes Status: Acute Likely due to cellulitis of BLE's, but bacteremia is not ruled out, and the patient does still have the abscessed tooth that needs to be removed soon. Patient was initiated on vancomycin/zosyn in the ED with aggressive IVF - we will continue this. Await blood cultures (infusaport was cultured as well as periphery). (2) Cellulitis of both lower extremities: Current visit: Yes Status: Acute As above (3) History of GI bleed: Current visit: No Status: Chronic No evidence for this at this time - but I do notice in [facility] notes that there is evidence of portal hypertension. We need to be thinking about varices should bleeding recur - the patient is on therapeutic anticoagulation with lovenox. Monitor plt count/H/H. (4) SVC syndrome: Current visit: No Status: Chronic Continue therapeutic lovenox (5) Hypomagnesemia: Current visit: Yes Status: Acute Monitor on tele. Replete (6) Nausea & vomiting: Current visit: Yes Status: Resolved Likely related to chemo. Provide antiemetics. Trial clear liquids tonight. (7) Diabetes: Current visit: Yes Status: Chronic Decrease basal insulin as the patient has not eaten in 3 days. Cover with SSI. (8) Pancreatic cancer: Current visit: Yes Status: Chronic Stage IV with mets to liver, lung, and bone. Adrenal lesion seen on imaging today is known and stable, thought to previously be an incidentaloma. On chemo. Patient still desires to be full code. If palliative care has not seen the patient yet, perhaps it is a good idea to refer the patient on discharge. (9) Pancytopenia: Current visit: No Status: Acute Likely related to chemo. Continue lovenox, carefully monitoring plts and H/H. Ok to continue lovenox as long as platelets are >50. (10) Discharge planning issues: Current visit: Yes Status: Acute Full code (11) DVT prophylaxis: Current visit: No Status: Acute on therapeutic lovenox History of Present Illness Chief Complaint: nausea, vomiting, aching all over, fever, B leg redness Narrative: Mr Ko is a 58 year old male with PMHx of metastatic pancreatic adenocarcinoma with mets to lung and spine, on chemotherapy (last treatment 48 hours ago), as well as IDDM2, splenic vein thrombosis and SVC syndrome, on anticoagulation with lovenox, recent admission for sepsis due to a dental abscess, still on antibiotics, pancytopenia in setting of chemotherapy, who presented to [facility] ED today complaining of malaise, fevers at home, aches all over, as well as nausea and vomiting. He denies abdominal pain. He did have diarrhea at home, but this has resolved by today. His noticed that since last night his legs have looked more pink, but today his bilateral distal lower extremities look much worse. 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 In the ED, he was found to be have a temperature of 37.8 (it is now up to 38.2), heart rate in 120's (sinus). The appearance of his legs was felt to be consistent with cellulitis. He was initiated on vancomycin, zosyn, IVF, antiemetics. His magnesium was found to be 1.0 - this was repleted. We were asked to admit the patient for further care. By the time I saw the patient in the ED, he stated he already felt much better. Review of Systems Review of Systems 12 systems reviewed. Pertinent positives and negatives are as per HPI. Additionally, denies dizziness, chest pain, shortness of breath, cough, abdominal pain. Diarrhea has resolved. Starting to think about food. [facility] Medical History Hypomagnesemia (Acute) Hypokalemia (Acute) Sepsis (Acute) Dental abscess (Acute) Nausea & vomiting (Resolved) Tali-Aguilar tear (Resolved ~07/2018) Diabetes (Chronic) Pancreatic cancer (Chronic ~04/2018) Dyslipidemia (Acute) Portal hypertension (Acute) Adrenal incidentaloma (Chronic) Depression (Chronic) GERD (gastroesophageal reflux disease) (Chronic) Hypertension (Chronic) Nephrolithiasis (Chronic) Obstructive sleep apnea (Chronic) SVC syndrome (Chronic) Splenic vein thrombosis (Chronic) Surgical History H/O esophagogastroduodenoscopy (Chronic) Port-A-Cath in place (Chronic) History of lumbar laminectomy (Resolved ~04/2017) Family History Paternal Grandmother Pancreatic cancer Sister Pancreatic cancer Other BRCA2 gene mutation positive Social History Smoking/Tobacco Use Status: Former Tobacco Use Quit Date: 12/31/16 Pack-years: 5 Alcohol Intake: former Household members: spouse Do you feel safe at home: Yes Do you feel safe in your relationship?: Yes Meds Home Medications Medication Instructions Recorded Confirmed Type Lantus U-100 Insulin 75 unit SUBCUT BID 11/21/18 11/28/18 History Novolog U-100 Insulin aspart 11/21/18 History amlodipine 10 mg PO DAILY 11/21/18 11/28/18 History atorvastatin 80 mg PO DAILY 11/21/18 11/28/18 History docusate sodium 100 mg PO BID 11/21/18 11/28/18 History enoxaparin [Lovenox] 75 mg SUBCUT BID 11/21/18 11/28/18 History fluoxetine 20 mg PO DAILY 11/21/18 11/28/18 History hydrochlorothiazide 25 mg PO DAILY 11/21/18 11/28/18 History lactobacillus combo #5 150 mg PO DAILY 11/21/18 11/28/18 History loratadine 10 mg PO DAILY 11/21/18 11/28/18 History lorazepam 1 mg PO Q4H PRN PRN 11/21/18 11/28/18 History metformin 500 mg PO BID 11/21/18 11/28/18 History omeprazole 40 mg PO BID 11/21/18 11/28/18 History ondansetron HCl 4 mg 11/21/18 History prochlorperazine maleate 11/21/18 History levofloxacin [Levaquin] 750 mg PO QAM #7 tab 11/24/18 11/28/18 Rx metronidazole 500 mg PO Q8H #21 tab 11/24/18 11/28/18 Rx Allergies Allergy/AdvReac Type Severity Reaction Status Date / Time No Known Allergies Allergy Unverified 11/28/18 13:20 Exam Narrative Exam Narrative: General: Very pleasant obese male, A&Ox3, laying comfortably in bed, joking, appears to be in good spirits Neurological: A&Ox3, no focal deficits Psychiatric: appropriate speech pattern/content Skin: Distal BLE with erythema and trace edema HEENT: Atraumatic, normocephalic, EOMI, MMM, whitish film over tongue, no submandibular or cervical lymphadenopathy, mild goiter, no JVD Cardiovascular: RRR, mildly tachycardic (90's), no m/r/g Lungs: CTAB Gastrointestinal: soft, nontender, nondistended Genitourinary: deferred Extremities: +1 BLE edema, erythema as above, R>L, no c/c Results Imaging Additional studies: CXR: No evidence of acute cardiopulmonary disease. CT abdomen/pelvis: 1. Findings consistent with metastatic pancreatic carcinoma. 2. No other specific etiology identified for the patient's symptoms. Labs : 11/28/18 14:07 11/28/18 13:45 Laboratory Results - last 24 hr 11/28/18 11/28/18 11/28/18 13:45 13:45 13:45 WBC Cancelled RBC Cancelled Hgb Cancelled Hct Cancelled MCV Cancelled MCH Cancelled MCHC Cancelled RDW Cancelled Plt Count Cancelled MPV Cancelled Immature Gran % Cancelled Neutrophils % Cancelled Band Neutrophils % Cancelled Lymphocytes % Cancelled Atypical Lymphs % Cancelled Monocytes % Cancelled Eosinophils % Cancelled Basophils % Cancelled Metamyelocytes % Cancelled Myelocytes % Cancelled Promyelocytes % Cancelled Absolute Neutrophils Cancelled Absolute Lymphocytes Cancelled Absolute Monocytes Cancelled Absolute Eosinophils Cancelled Absolute Basophils Cancelled Nucleated RBCs Cancelled Differential Comment Cancelled Other Cell Type Cancelled RBC Morphology Cancelled Polychromasia Cancelled Hypochromasia Cancelled Poikilocytosis Cancelled Basophilic Stippling Cancelled Anisocytosis Cancelled Microcytosis Cancelled Macrocytosis Cancelled Spherocytes Cancelled Target Cells Cancelled Tear Drop Cells Cancelled Ovalocytes Cancelled Stomatocytes Cancelled [place] Bodies Cancelled [place] Cells Cancelled Acanthocytes (Spur) Cancelled Schistocytes Cancelled Sodium 135 L Potassium 3.6 Chloride 98 Carbon Dioxide 24.4 Anion Gap 12.6 H BUN 14 Creatinine 1.04 Estimated GFR/1.73 m2 >= 60.00 Glucose 231 H D Lactate 2.6 H Calcium 8.8 Magnesium 1.0 L Total Bilirubin 0.7 AST 131 H ALT 153 H Alkaline Phosphatase 95 Total Protein 7.2 Albumin 3.3 L Urine Color Urine Clarity Urine pH Ur Specific [place] Urine Protein Urine Ketones Urine Blood Urine Nitrite Urine Bilirubin Urine Urobilinogen Ur Leukocyte Esterase Urine RBC Urine WBC Ur Epithelial Cells Urine Crystals Urine Bacteria Urine Casts Urine Mucus Ur Culture Indicated? Urine Glucose 11/28/18 11/28/18 14:07 16:00 WBC 4.82 RBC 3.49 L Hgb 10.0 L Hct 30.7 L MCV 88.0 MCH 28.7 MCHC 32.6 RDW 18.1 H Plt Count 57 L MPV 11.1 H Immature Gran % 0.2 Neutrophils % 90.8 Band Neutrophils % Lymphocytes % 7.3 Atypical Lymphs % Monocytes % 1.7 Eosinophils % 0.0 Basophils % 0.0 Metamyelocytes % Myelocytes % Promyelocytes % Absolute Neutrophils 4.38 Absolute Lymphocytes 0.35 L Absolute Monocytes 0.08 L Absolute Eosinophils 0.00 Absolute Basophils 0.00 Nucleated RBCs Differential Comment Rbc morph reviewed Other Cell Type RBC Morphology See below Polychromasia Present Hypochromasia Poikilocytosis 1+ Basophilic Stippling Anisocytosis 2+ Microcytosis Macrocytosis Spherocytes Target Cells Tear Drop Cells Ovalocytes Stomatocytes [place] Bodies [place] Cells Acanthocytes (Spur) Schistocytes Sodium Potassium Chloride Carbon Dioxide Anion Gap BUN Creatinine Estimated GFR/1.73 m2 Glucose Lactate Calcium Magnesium Total Bilirubin AST ALT Alkaline Phosphatase Total Protein Albumin Urine Color Yellow Urine Clarity Clear Urine pH 6.0 Ur Specific [place] <= 1.005 Urine Protein Trace H Urine Ketones Negative Urine Blood Negative Urine Nitrite Negative Urine Bilirubin Negative Urine Urobilinogen 0.2 Ur Leukocyte Esterase Negative Urine RBC Negative Urine WBC 0-2 Ur Epithelial Cells Rare Urine Crystals Negative Urine Bacteria Negative Urine Casts 0-2 hyaline Urine Mucus Negative Ur Culture Indicated? No Urine Glucose Negative Last Vital Signs Temp 37.8 C H 11/28/18 13:15 Pulse 98 H 11/28/18 15:46 Resp 22 11/28/18 16:40 BP 122/44 L 11/28/18 15:46 Pulse Ox 94 L 11/28/18 15:10
[2018-11-28] MEDS: Normal Saline Flush 10 ML SYR IVP (18:05)
[2018-11-28] MEDS: Enoxaparin 80 MG/0.8 ML SYR 75 MG SC (18:22)
[2018-11-28] MEDS: MAGNESIUM SULFATE 4 GM/100 ML BAG IVPB (18:48)
[2018-11-28] MEDS: Insulin Aspart 300 UNITS/3 ML PEN SC ×2 (18:54→21:49)
[2018-11-28] MEDS: Atorvastatin 40 MG TAB 80 MG PO (20:49)
[2018-11-28] MEDS: Insulin Glargine 300 UNITS/3 ML PEN 30 UNITS SC (21:48)
[2018-11-28] MEDS: PIPERACILLIN/TAZO 4.5 GM in Normal Saline 100 ML IVPB (23:35)
[2018-11-28] MEDS: Normal Saline 1,000 ML 175 ML IV (23:36)
[2018-11-29] VITALS (8 sets, daily range): BP systolic 111–137; BP diastolic 63–82; PULSE 88–95; RESP 17–20; TEMP 36.6–37.7; O2SAT 96–99
--- NOTE | 2018-11-29 01:16 | NUR.NOTE ---
TEDS not on at this time due to bilateral redness to feet.
[2018-11-29] MEDS: VANCOMYCIN 2,000 MG in Normal Saline 500 ML 250 MG IVPB ×2 (05:50→16:00)
[2018-11-29] MEDS: Normal Saline Flush 10 ML SYR IVP ×3 (05:50→13:11)
[2018-11-29] MEDS: Enoxaparin 80 MG/0.8 ML SYR 75 MG SC ×2 (05:51→17:54)
[2018-11-29] MEDS: Loratidine 10 MG TAB PO (07:52)
[2018-11-29] MEDS: FLUoxetine 20 MG CAP PO (07:52)
[2018-11-29 08:17] LABS: Abs Immature Grans 0.02 k/cumm (0.0-0.09); Absolute Basophil Count 0.01 k/cumm (0.0-0.2); Absolute Eosinophil Count 0.02 k/cumm (0.0-0.7); Absolute Lymphocyte Count 0.45 k/cumm (1.2-3.4); Absolute Monocyte Count 0.07 k/cumm (0.11-0.7); Absolute Neutrophil Count 3.99 k/cumm (1.2-6.7); Basophils % 0.2; Eosinophils % 0.4; HCT 25.5 % (40.0-50.0); HGB 8.2 g/dL (13.5-17.5); Immature Grans % 0.4; Lymphocytes % 9.9; Mean Corp. HGB Concentration 32.2 g/dL (32.0-36.0); Mean Corpuscular Hemoglobin 28.9 pg (27.0-33.0); Mean Corpuscular Volume 89.8 fL (80-95); Mean Platelet Volume 12.5 fL (8.0-11.0); Monocytes % 1.5; Neutrophils % 87.6; RBC 2.84 m/cumm (4.50-6.00); RBC Distribution Width 17.9 % (11.8-14.1); White Blood Cell Count 4.56 k/cumm (4.4-10.8)
[2018-11-29 08:21] LABS: Anion Gap 9.9 mmol/L (3-11); BUN 10 mg/dL (7-18); CO2 25.1 mmol/L (21.0-32.0); CREATININE 0.68 mg/dL (0.70-1.30); Calcium 7.9 mg/dL (8.5-10.1); Chloride 99 mmol/L (98-107); Glucose 229 mg/dL (70-100); Magnesium 1.8 mg/dL (1.8-2.4); Potassium 3.4 mmol/L (3.5-5.1); Sodium 134 mmol/L (136-145)
[2018-11-29] MEDS: PIPERACILLIN/TAZO 4.5 GM in Normal Saline 100 ML IVPB ×3 (08:26→23:21)
[2018-11-29 08:46] LABS: Platelet Count 50 x1000/uL (130-400)
[2018-11-29] MEDS: Insulin Aspart 300 UNITS/3 ML PEN SC ×4 (09:44→21:01)
[2018-11-29] MEDS: Magnesium Chloride 64 MG TABCR PO ×2 (09:45→20:14)
[2018-11-29] MEDS: Potassium Chloride 20 MEQ TABCR 40 MEQ PO (09:46)
[2018-11-29] MEDS: Insulin Glargine 300 UNITS/3 ML PEN 50 UNITS SC ×2 (10:59→21:01)
[2018-11-29] MEDS: Lactobacillus Acidophilus CAP 1 CAP PO (11:01)
--- NOTE | 2018-11-29 11:38 | PGE_ITS ---
Date of Service Date of service: 11/29/18 Time of Service: 11:35 Assessment and Plan (1) Sepsis: Start date: 11/29/18 Start time: 11:49 Current visit: No Status: Acute A// Afebrile since last night. Erythema improving, decreasing down leg and at feet. Still warm to touch. Edema to RLE is 2-3+ nonpitting. HR and BP are normol. Recovered from sepsis. P// Continue vanco Day 2 and zosyn day 2. Blood cultures pending. Elevate BLE on wedge to reduce edema. Continue to montior. (2) Cellulitis of both lower extremities: Start date: 11/29/18 Start time: 11:52 Current visit: No Status: Acute As above (3) SVC syndrome: Start date: 11/29/18 Start time: 11:52 Current visit: No Status: Chronic Continue therapeutic lovenox (4) Hypomagnesemia: Start date: 11/29/18 Start time: 11:52 Current visit: No Status: Acute A// improved. 1.8 today. P// Discontinue teley and start on slo mag 64 BID. (5) Nausea & vomiting: Start date: 11/29/18 Start time: 11:53 Current visit: No Status: Resolved A// Resolved. Tolerating regular diet. P// zofran as needed if nausea or vomiting returns. (6) Diabetes: Start date: 11/29/18 Start time: 11:54 Current visit: No Status: Chronic A// Eating regular diet, FS this am 241, by labs 229. P// Increase SSI to resistant. Add lantus back slowly at 55 units BID and monitor blood glucose. (7) Pancreatic cancer: Start date: 11/29/18 Start time: 11:55 Current visit: No Status: Chronic A//Stage IV with mets to liver, lung, and bone. P//Patient still desires to be full code. Follow up with oncology (8) Pancytopenia: Start date: 11/29/18 Start time: 11:56 Current visit: No Status: Acute A// Platelets 50 today; likely related to chemo. P//Continue lovenox, carefully monitoring plts and H/H Ok to continue lovenox as long as platelets are >50. (9) DVT prophylaxis: Start date: 11/29/18 Start time: 11:56 Current visit: No Status: Acute on therapeutic lovenox Subjective Patient reports: feels better Interval history since last seen: Feeling better today. Joking around. Afebrile overnight. No nausea or vomiting. Tolerating regular diet. Mag was 1.8 today, telemetry dcd. Cellulitis is improving. Day 2 of zosyn and vancomycin. BC x 2 NGTD. Awaiting blood culture results. Denies CP, SOB, N/V/D. Exam Narrative Exam Narrative: General: Very pleasant obese male, A&Ox3, laying comfortably in bed, joking, appears to be in good spirits Neurological: A&Ox3, no focal deficits Psychiatric: appropriate speech pattern/content Skin: Distal BLE with erythema and nonpitting edema Cardiovascular: RRR, no m/r/g Lungs: CTAB Gastrointestinal: soft, nontender, nondistended Extremities: +2-3 BLE edema, erythema as above, R>L, no c/c Objective Objective Clinical Data: Abnormal lab results 11/28/18 11/28/18 11/28/18 Range/Units 13:45 13:45 14:07 RBC 3.49 L (4.50-6.00) m/cumm Hgb 10.0 L (13.5-17.5) g/dL Hct 30.7 L (40.0-50.0) % RDW 18.1 H (11.8-14.1) % Plt Count 57 L (130-400) x1000/uL MPV 11.1 H (8.0-11.0) fL Absolute Lymphocytes 0.35 L (1.2-3.4) k/cumm Absolute Monocytes 0.08 L (0.11-0.7) k/cumm Sodium 135 L (136-145) mmol/L Potassium (3.5-5.1) mmol/L Anion Gap 12.6 H (3-11) mmol/L Creatinine (0.70-1.30) mg/dL Glucose 231 H D (70-100) mg/dL Lactate 2.6 H (0.6-1.4) mmol/l Calcium (8.5-10.1) mg/dL Magnesium 1.0 L (1.8-2.4) mg/dL AST 131 H (15-37) U/L ALT 153 H (12-78) U/L Albumin 3.3 L (3.4-5.0) g/dL Urine Protein (Negative) mg/dL 11/28/18 11/29/18 11/29/18 Range/Units 16:00 07:20 07:20 RBC 2.84 L (4.50-6.00) m/cumm Hgb 8.2 L (13.5-17.5) g/dL Hct 25.5 L (40.0-50.0) % RDW 17.9 H (11.8-14.1) % Plt Count 50 L (130-400) x1000/uL MPV 12.5 H (8.0-11.0) fL Absolute Lymphocytes 0.45 L (1.2-3.4) k/cumm Absolute Monocytes 0.07 L (0.11-0.7) k/cumm Sodium 134 L (136-145) mmol/L Potassium 3.4 L (3.5-5.1) mmol/L Anion Gap (3-11) mmol/L Creatinine 0.68 L (0.70-1.30) mg/dL Glucose 229 H (70-100) mg/dL Lactate (0.6-1.4) mmol/l Calcium 7.9 L (8.5-10.1) mg/dL Magnesium (1.8-2.4) mg/dL AST (15-37) U/L ALT (12-78) U/L Albumin (3.4-5.0) g/dL Urine Protein Trace H (Negative) mg/dL Vital Signs Temperature 36.6 C 11/29/18 07:40 Temperature Source Tympanic 11/29/18 07:40 Pulse 90 11/29/18 11:09 Pulse Rhythm Regular 11/29/18 08:01 Pulse 98 H 11/28/18 16:40 Respiratory Rate 20 11/29/18 07:40 Respiratory Effort Non-Labored 11/29/18 08:01 Respiratory Depth Normal 11/29/18 08:01 Respiratory Pattern Normal 11/29/18 08:01 Blood Pressure 120/75 11/29/18 07:40 Blood Pressure Mean 60 11/28/18 15:46 Pulse Oximetry 99 11/29/18 07:40 Oxygen Delivery Method Room Air 11/29/18 07:40 Oxygen Flow Rate 0 11/29/18 07:40 Pain Level 0 11/28/18 23:37 Intake & Output 11/28/18 11/28/18 11/29/18 11:59 23:59 11:59 Intake Total 2146.667 / 2146.667 1387.083 / 1387.083 Balance 2146.667 / 2146.667 1387.083 / 1387.083 Weight 136.078 kg 138.2 kg Intake: IV 1726.667 / 1726.667 947.083 / 947.083 Oral 420 / 420 440 / 440 Other: Urine Color Pale Yellow Urine Appearance Clear Cloudy Urine Odor None Comment per patient verbalization Stool Size Moderate Stool Characteristics Liquid Emesis Description Retching Voiding Methods Toilet Laboratory Results WBC 4.56 k/cumm (4.4-10.8) 11/29/18 07:20 RBC 2.84 m/cumm (4.50-6.00) L 11/29/18 07:20 Hgb 8.2 g/dL (13.5-17.5) L 11/29/18 07:20 Hct 25.5 % (40.0-50.0) L 11/29/18 07:20 MCV 89.8 fL (80-95) 11/29/18 07:20 MCH 28.9 pg (27.0-33.0) 11/29/18 07:20 MCHC 32.2 g/dL (32.0-36.0) 11/29/18 07:20 RDW 17.9 % (11.8-14.1) H 11/29/18 07:20 Plt Count 50 x1000/uL (130-400) L 11/29/18 07:20 MPV 12.5 fL (8.0-11.0) H 11/29/18 07:20 Immature Gran % 0.4 11/29/18 07:20 Neutrophils % 87.6 11/29/18 07:20 Band Neutrophils % Cancelled 11/28/18 13:45 Lymphocytes % 9.9 11/29/18 07:20 Atypical Lymphs % Cancelled 11/28/18 13:45 Monocytes % 1.5 11/29/18 07:20 Eosinophils % 0.4 11/29/18 07:20 Basophils % 0.2 11/29/18 07:20 Metamyelocytes % Cancelled 11/28/18 13:45 Myelocytes % Cancelled 11/28/18 13:45 Promyelocytes % Cancelled 11/28/18 13:45 Absolute Neutrophils 3.99 k/cumm (1.2-6.7) 11/29/18 07:20 Absolute Lymphocytes 0.45 k/cumm (1.2-3.4) L 11/29/18 07:20 Absolute Monocytes 0.07 k/cumm (0.11-0.7) L 11/29/18 07:20 Absolute Eosinophils 0.02 k/cumm (0.0-0.7) 11/29/18 07:20 Absolute Basophils 0.01 k/cumm (0.0-0.2) 11/29/18 07:20 Nucleated RBCs Cancelled 11/28/18 13:45 Differential Comment Rbc morph reviewed 11/28/18 14:07 Other Cell Type Cancelled 11/28/18 13:45 RBC Morphology See below 11/28/18 14:07 Polychromasia Present 11/28/18 14:07 Hypochromasia Cancelled 11/28/18 13:45 Poikilocytosis 1+ 11/28/18 14:07 Basophilic Stippling Cancelled 11/28/18 13:45 Anisocytosis 2+ 11/28/18 14:07 Microcytosis Cancelled 11/28/18 13:45 Macrocytosis Cancelled 11/28/18 13:45 Spherocytes Cancelled 11/28/18 13:45 Target Cells Cancelled 11/28/18 13:45 Tear Drop Cells Cancelled 11/28/18 13:45 Ovalocytes Cancelled 11/28/18 13:45 Stomatocytes Cancelled 11/28/18 13:45 [place] Bodies Cancelled 11/28/18 13:45 [place] Cells Cancelled 11/28/18 13:45 Acanthocytes (Spur) Cancelled 11/28/18 13:45 Schistocytes Cancelled 11/28/18 13:45 Sodium 134 mmol/L (136-145) L 11/29/18 07:20 Potassium 3.4 mmol/L (3.5-5.1) L 11/29/18 07:20 Chloride 99 mmol/L (98-107) 11/29/18 07:20 Carbon Dioxide 25.1 mmol/L (21.0-32.0) 11/29/18 07:20 Anion Gap 9.9 mmol/L (3-11) 11/29/18 07:20 BUN 10 mg/dL (7-18) 11/29/18 07:20 Creatinine 0.68 mg/dL (0.70-1.30) L 11/29/18 07:20 Estimated GFR/1.73 m2 >= 60.00 (mL/min/1.73m2) 11/29/18 07:20 Glucose 229 mg/dL (70-100) H 11/29/18 07:20 Lactate 2.6 mmol/l (0.6-1.4) H 11/28/18 13:45 Calcium 7.9 mg/dL (8.5-10.1) L 11/29/18 07:20 Magnesium 1.8 mg/dL (1.8-2.4) 11/29/18 07:20 Total Bilirubin 0.7 mg/dL (0.2-1.0) 11/28/18 13:45 AST 131 U/L (15-37) H 11/28/18 13:45 ALT 153 U/L (12-78) H 11/28/18 13:45 Alkaline Phosphatase 95 U/L (46-116) 11/28/18 13:45 Total Protein 7.2 g/dL (6.4-8.2) 11/28/18 13:45 Albumin 3.3 g/dL (3.4-5.0) L 11/28/18 13:45 Urine Color Yellow (Yellow) 11/28/18 16:00 Urine Clarity Clear (Clear) 11/28/18 16:00 Urine pH 6.0 (5-8) 11/28/18 16:00 Ur Specific [place] <= 1.005 (1.005-1.025) 11/28/18 16:00 Urine Protein Trace mg/dL (Negative) H 11/28/18 16:00 Urine Ketones Negative mg/dL (Negative) 11/28/18 16:00 Urine Blood Negative (Negative) 11/28/18 16:00 Urine Nitrite Negative (Negative) 11/28/18 16:00 Urine Bilirubin Negative (Negative) 11/28/18 16:00 Urine Urobilinogen 0.2 EU/dL (Up TO 0.2) 11/28/18 16:00 Ur Leukocyte Esterase Negative (Negative) 11/28/18 16:00 Urine RBC Negative (0-2) 11/28/18 16:00 Urine WBC 0-2 HPF (0-5) 11/28/18 16:00 Ur Epithelial Cells Rare HPF (Negative) 11/28/18 16:00 Urine Crystals Negative HPF (Negative) 11/28/18 16:00 Urine Bacteria Negative HPF (Negative) 11/28/18 16:00 Urine Casts 0-2 hyaline LPF (Negative) 11/28/18 16:00 Urine Mucus Negative (Negative) 11/28/18 16:00 Ur Culture Indicated? No 11/28/18 16:00 Urine Glucose Negative mg/dL (Negative) 11/28/18 16:00
[2018-11-29] MEDS: Normal Saline 500 ML IV (15:51)
--- NOTE | 2018-11-29 17:55 | PDOC.CMIN ---
Care Management Initial Assess REASON FOR HOSPITALIZATION:: Sepsis due to cellulitis BLEs PAST MEDICAL HISTORY/PAST SURGICAL HISTORY:: Medical: Hypomagnesemia (Acute); Hypokalemia (Acute); Sepsis (Acute);. Dental abscess (Acute); Nausea & vomiting (Resolved); Tali-Aguilar tear (Resolved ~07/2018); Diabetes (Chronic); Pancreatic cancer (Chronic 04/2018); Dyslipidemia (Acute); Portal hypertension (Acute); Adrenal incidentaloma (Chronic); Depression (Chronic); GERD (gastroesophageal reflux disease) (Chronic); Hypertension (Chronic); Nephrolithiasis (Chronic). Obstructive sleep apnea (Chronic); SVC syndrome (Chronic); Splenic vein thrombosis (Chronic). Surgical: H/O esophagogastroduodenoscopy (Chronic); Port-A-Cath in place (Chronic); History of lumbar laminectomy (Resolved ~04/2017) PREVIOUS FUNCTIONAL STATUS/SOCIAL/FAMILY SUPPORTS:: Lives with his Svetlana at their home in [facility]. Has 2 adult children and seven grandchildren. They are all close and supportive. Currently receiving a second round of chemotherapy and states has taken a lot out of him. Independent at baseline but has been unable to perform normal activities due to the chemotherapy and now the infection in his legs. Stated that his foot never healed properlyafter the lawnmower accident 2 years ago. CURRENT FUNCTIONAL STATUS:: Lying in bed visiting with one of his daughters and granddaughter. , Svetlana, is at his side. Says he is feeling a little down between the chemotherapy and now this infection to deal with. ADVANCE DIRECTIVES:: None on file Has patient been provided with information about the portal?: No Did the patient sign up for the portal?: No CODE STATUS:: Full Code INSURANCE COVERAGE / FINANCIAL ISSUES:: [facility] (Not 's Choice) CURRENT HOME/COMMUNITY SERVICES/EQUIPMENT:: [facility] currently receiving Chemotherapy PRIMARY CARE PHYSICIAN:: DOUG Cain POTENTIAL DISCHARGE NEEDS:: Resume Chemotherapy Round 2 reatments and possibly IV Antibiotics PATIENT/FAMILY EDUCATION NEEDS:: Discharge instructions ANTICIPATED BARRIERS TO DISCHARGE:: None identified TRANSPORTATION:: Family PLAN:: Timmy will return home when medically cleared for discharge. Will follow up withhis PCP and Oncologist.
[2018-11-29] MEDS: Atorvastatin 40 MG TAB 80 MG PO (20:14)
[2018-11-30] VITALS (11 sets, daily range): BP systolic 116–156; BP diastolic 61–89; PULSE 84–97; RESP 17–22; TEMP 36.1–37.5; O2SAT 97–99
[2018-11-30] MEDS: VANCOMYCIN 2,000 MG in Normal Saline 500 ML 250 MG IVPB (03:38)
[2018-11-30 05:32] LABS: Lactate-non-spesis 0.9 mmol/l (0.6-1.4)
[2018-11-30] MEDS: Normal Saline Flush 10 ML SYR IVP ×3 (05:42→21:08)
[2018-11-30 05:46] LABS: Platelet Count 46 x1000/uL (130-400)
[2018-11-30 08:13] LABS: Abs Immature Grans 0.01 k/cumm (0.0-0.09); Absolute Eosinophil Count 0.04 k/cumm (0.0-0.7); Absolute Lymphocyte Count 0.34 k/cumm (1.2-3.4); Absolute Monocyte Count 0.06 k/cumm (0.11-0.7); Absolute Neutrophil Count 1.83 k/cumm (1.2-6.7); Eosinophils % 1.8; HCT 23.3 % (40.0-50.0); HGB 7.5 g/dL (13.5-17.5); Immature Grans % 0.4; Lymphocytes % 14.9; Mean Corp. HGB Concentration 32.2 g/dL (32.0-36.0); Mean Corpuscular Hemoglobin 29.3 pg (27.0-33.0); Mean Platelet Volume 11.7 fL (8.0-11.0); Monocytes % 2.6; Neutrophils % 80.3; RBC 2.56 m/cumm (4.50-6.00); RBC Distribution Width 17.9 % (11.8-14.1); White Blood Cell Count 2.28 k/cumm (4.4-10.8)
[2018-11-30] MEDS: Insulin Aspart 300 UNITS/3 ML PEN SC ×3 (08:19→16:39)
[2018-11-30] MEDS: Loratidine 10 MG TAB PO (08:19)
[2018-11-30] MEDS: Magnesium Chloride 64 MG TABCR PO ×2 (08:19→19:28)
[2018-11-30] MEDS: FLUoxetine 20 MG CAP PO (08:19)
[2018-11-30] MEDS: PIPERACILLIN/TAZO 4.5 GM in Normal Saline 100 ML IVPB (08:19)
[2018-11-30] MEDS: Insulin Glargine 300 UNITS/3 ML PEN 50 UNITS SC (08:20)
[2018-11-30 08:21] LABS: Diff Comment RBC Morph Reviewed; RBC Morphology Normal
[2018-11-30 08:34] LABS: BUN 10 mg/dL (7-18); CREATININE 0.69 mg/dL (0.70-1.30); Calcium 7.6 mg/dL (8.5-10.1); Chloride 104 mmol/L (98-107); Glucose 270 mg/dL (70-100); Magnesium 1.9 mg/dL (1.8-2.4); Potassium 3.9 mmol/L (3.5-5.1); Sodium 139 mmol/L (136-145)
--- NOTE | 2018-11-30 11:13 | CMPROGNOTE_ITS ---
Care Management Progress Note S/O: Timmy was visiting with his family including six grandchildren when CM met with him. He reported anticipating a blood transfusion and stated his blood sugars were quite high at 350 today. He was pleasant in interaction. CM continues to follow. A: 58 year old male admitted to [facility] 11/28/18 for Sepsis due to Cellulitis of BL E's P: Timmy will return home when ready per MD. He will follow up with [facility], his PCP and plan of care as prescribed. Undetermined ABX course planned for discharge at this time. CM continues to follow. Timmy will transport via private vehicle with family.
--- NOTE | 2018-11-30 14:32 | W.PM.PROGNOT ---
Date of Service Date of service: 11/30/18 Time of Service: 14:32 Assessment and Plan (1) Sepsis: Current visit: No Status: Acute Likely due to cellulitis of BLE's. Blood cx are negative. I am switching antibiotics to clindamycin as I am not convinced the patient's appearance of the skin has improved. (2) Cellulitis of both lower extremities: Current visit: No Status: Acute As above (3) History of GI bleed: Current visit: No Status: Chronic No evidence for this at this time. 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 (5) Hypomagnesemia: Current visit: No Status: Resolved Resolved. Off tele. Will recheck in am. (6) Nausea & vomiting: Current visit: No Status: Resolved Likely related to chemo. Tolerating regular consistency diet. (7) Diabetes: Current visit: No Status: Chronic Resume outpatient dosing of basal bolus insulin. (8) Pancreatic cancer: Current visit: No Status: Chronic Stage IV with mets to liver, lung, and bone; adrenal lesion as well (?met). On chemo with gemcitabine and paclitaxel. Will speak with patient's oncologist about timing of next chemo. Full code. Palliative care as outpatient. (9) Pancytopenia: Current visit: No Status: Acute Likely related to chemo. Hold lovenox as plts are <50. Transfusion of 1 unit of pRBC's today. (10) Discharge planning issues: Current visit: No Status: Acute Full code (11) DVT prophylaxis: Current visit: No Status: Acute Lovenox on hold due to thrombocytopenia. Subjective Interval history since last seen: Mr Ko denies dizziness, chest pain, shortness of breath, nausea, vomiting. He thinks his legs look better today - I am not so sure. He agrees to have a blood transfusion, but says that his lungs feel raspy after he gets them - I told him we would give him some lasix/benadryl/tylenol. We talked about risks/benefits of transfusion - he verbalized understanding and consent. He is not actively bleeding. He had some questions about use of neulasta - I told him that he did not need it at this time. He stated he wanted to be proactive and take it before his next chemo. He wants me to talk to his oncologist about when his next chemo should be. Exam Narrative Exam Narrative: General: Very pleasant obese male, A&Ox3, laying comfortably in bed, joking, appears to be in good spirits HEENT: Atraumatic, normocephalic, EOMI, MMM Cardiovascular: RRR, no m/r/g Lungs: CTAB Gastrointestinal: soft, nontender, nondistended Genitourinary: deferred Extremities: +1 BLE edema, erythema R>L, to me it looks worse than 2 days ago, no c/c Objective Objective Clinical Data: Abnormal lab results 11/30/18 11/30/18 11/30/18 Range/Units 05:25 05:25 14:04 WBC 2.28 L D (4.4-10.8) k/cumm RBC 2.56 L (4.50-6.00) m/cumm Hgb 7.5 L (13.5-17.5) g/dL Hct 23.3 L (40.0-50.0) % RDW 17.9 H (11.8-14.1) % Plt Count 46 L (130-400) x1000/uL MPV 11.7 H (8.0-11.0) fL Absolute Lymphocytes 0.34 L (1.2-3.4) k/cumm Absolute Monocytes 0.06 L (0.11-0.7) k/cumm Creatinine 0.69 L (0.70-1.30) mg/dL Glucose 270 H (70-100) mg/dL Calcium 7.6 L (8.5-10.1) mg/dL Crossmatch See Detail Vital Signs Temperature 36.9 C 11/30/18 11:45 Temperature Source Tympanic 11/30/18 11:45 Pulse 91 H 11/30/18 11:45 Pulse Rhythm Regular 11/30/18 08:11 Pulse 98 H 11/28/18 16:40 Respiratory Rate 17 11/30/18 11:45 Respiratory Effort Non-Labored 11/30/18 08:11 Respiratory Depth Normal 11/30/18 08:11 Respiratory Pattern Normal 11/30/18 08:11 Blood Pressure 133/76 11/30/18 11:45 Blood Pressure Mean 60 11/28/18 15:46 Pulse Oximetry 99 11/30/18 11:45 Oxygen Delivery Method Room Air 11/30/18 11:45 Oxygen Flow Rate 0 11/30/18 11:45 Pain Level 0 11/30/18 03:35 Comment 11/30/18 03:35 Intake & Output 11/29/18 11/30/18 11/30/18 23:59 11:59 23:59 Intake Total 1858 / 3260.083 1320 / 1660 340 / 1660 Balance 1858 / 3260.083 1320 / 1660 340 / 1660 Weight 138.8 kg Intake: IV 728 / 1690.083 670 / 770 100 / 770 Oral 1130 / 1570 650 / 890 240 / 890 Other: Urine Color Yellow Urine Appearance Clear Urine Odor Normal Comment pt gets up AD JONI to void. Pt voiding ad joni in toilet. Flushing toilet; no hat. Pt denies sx. Voiding Methods Toilet Toilet Laboratory Results WBC 2.28 k/cumm (4.4-10.8) L D 11/30/18 05:25 RBC 2.56 m/cumm (4.50-6.00) L 11/30/18 05:25 Hgb 7.5 g/dL (13.5-17.5) L 11/30/18 05:25 Hct 23.3 % (40.0-50.0) L 11/30/18 05:25 MCV 91.0 fL (80-95) 11/30/18 05:25 MCH 29.3 pg (27.0-33.0) 11/30/18 05:25 MCHC 32.2 g/dL (32.0-36.0) 11/30/18 05:25 RDW 17.9 % (11.8-14.1) H 11/30/18 05:25 Plt Count 46 x1000/uL (130-400) L 11/30/18 05:25 MPV 11.7 fL (8.0-11.0) H 11/30/18 05:25 Immature Gran % 0.4 11/30/18 05:25 Neutrophils % 80.3 11/30/18 05:25 Band Neutrophils % Cancelled 11/28/18 13:45 Lymphocytes % 14.9 11/30/18 05:25 Atypical Lymphs % Cancelled 11/28/18 13:45 Monocytes % 2.6 11/30/18 05:25 Eosinophils % 1.8 11/30/18 05:25 Basophils % 0.0 11/30/18 05:25 Metamyelocytes % Cancelled 11/28/18 13:45 Myelocytes % Cancelled 11/28/18 13:45 Promyelocytes % Cancelled 11/28/18 13:45 Absolute Neutrophils 1.83 k/cumm (1.2-6.7) 11/30/18 05:25 Absolute Lymphocytes 0.34 k/cumm (1.2-3.4) L 11/30/18 05:25 Absolute Monocytes 0.06 k/cumm (0.11-0.7) L 11/30/18 05:25 Absolute Eosinophils 0.04 k/cumm (0.0-0.7) 11/30/18 05:25 Absolute Basophils 0.00 k/cumm (0.0-0.2) 11/30/18 05:25 Nucleated RBCs Cancelled 11/28/18 13:45 Differential Comment Rbc morph reviewed 11/30/18 05:25 Other Cell Type Cancelled 11/28/18 13:45 RBC Morphology Normal 11/30/18 05:25 Polychromasia Present 11/28/18 14:07 Hypochromasia Cancelled 11/28/18 13:45 Poikilocytosis 1+ 11/28/18 14:07 Basophilic Stippling Cancelled 11/28/18 13:45 Anisocytosis 2+ 11/28/18 14:07 Microcytosis Cancelled 11/28/18 13:45 Macrocytosis Cancelled 11/28/18 13:45 Spherocytes Cancelled 11/28/18 13:45 Target Cells Cancelled 11/28/18 13:45 Tear Drop Cells Cancelled 11/28/18 13:45 Ovalocytes Cancelled 11/28/18 13:45 Stomatocytes Cancelled 11/28/18 13:45 Forte-[place]gie Bodies Cancelled 11/28/18 13:45 [place] Cells Cancelled 11/28/18 13:45 Acanthocytes (Spur) Cancelled 11/28/18 13:45 Schistocytes Cancelled 11/28/18 13:45 Sodium 139 mmol/L (136-145) 11/30/18 05:25 Potassium 3.9 mmol/L (3.5-5.1) 11/30/18 05:25 Chloride 104 mmol/L (98-107) 11/30/18 05:25 Carbon Dioxide 25.0 mmol/L (21.0-32.0) 11/30/18 05:25 Anion Gap 10.0 mmol/L (3-11) 11/30/18 05:25 BUN 10 mg/dL (7-18) 11/30/18 05:25 Creatinine 0.69 mg/dL (0.70-1.30) L 11/30/18 05:25 Estimated GFR/1.73 m2 >= 60.00 (mL/min/1.73m2) 11/30/18 05:25 Glucose 270 mg/dL (70-100) H 11/30/18 05:25 Lactate 0.9 mmol/l (0.6-1.4) 11/30/18 05:25 Calcium 7.6 mg/dL (8.5-10.1) L 11/30/18 05:25 Magnesium 1.9 mg/dL (1.8-2.4) 11/30/18 05:25 Total Bilirubin 0.7 mg/dL (0.2-1.0) 11/28/18 13:45 AST 131 U/L (15-37) H 11/28/18 13:45 ALT 153 U/L (12-78) H 11/28/18 13:45 Alkaline Phosphatase 95 U/L (46-116) 11/28/18 13:45 Total Protein 7.2 g/dL (6.4-8.2) 11/28/18 13:45 Albumin 3.3 g/dL (3.4-5.0) L 11/28/18 13:45 Urine Color Yellow (Yellow) 11/28/18 16:00 Urine Clarity Clear (Clear) 11/28/18 16:00 Urine pH 6.0 (5-8) 11/28/18 16:00 Ur Specific [place] <= 1.005 (1.005-1.025) 11/28/18 16:00 Urine Protein Trace mg/dL (Negative) H 11/28/18 16:00 Urine Ketones Negative mg/dL (Negative) 11/28/18 16:00 Urine Blood Negative (Negative) 11/28/18 16:00 Urine Nitrite Negative (Negative) 11/28/18 16:00 Urine Bilirubin Negative (Negative) 11/28/18 16:00 Urine Urobilinogen 0.2 EU/dL (Up TO 0.2) 11/28/18 16:00 Ur Leukocyte Esterase Negative (Negative) 11/28/18 16:00 Urine RBC Negative (0-2) 11/28/18 16:00 Urine WBC 0-2 HPF (0-5) 11/28/18 16:00 Ur Epithelial Cells Rare HPF (Negative) 11/28/18 16:00 Urine Crystals Negative HPF (Negative) 11/28/18 16:00 Urine Bacteria Negative HPF (Negative) 11/28/18 16:00 Urine Casts 0-2 hyaline LPF (Negative) 11/28/18 16:00 Urine Mucus Negative (Negative) 11/28/18 16:00 Ur Culture Indicated? No 11/28/18 16:00 Urine Glucose Negative mg/dL (Negative) 11/28/18 16:00 Vancomycin Trough 10.0 ug/mL (10.0-20.0) 11/30/18 10:55 Crossmatch See Detail 11/30/18 14:04
[2018-11-30] MEDS: CLINDAMYCIN 600 MG/50 ML BAG 100 MG IVPB ×2 (14:37→21:08)
[2018-11-30] MEDS: Insulin Aspart 100 UNITS/ML UNIT SC (14:37)
[2018-11-30] MEDS: diphenhydrAMINE 25 MG CAP PO (15:44)
[2018-11-30] MEDS: Acetaminophen 325 MG TAB 650 MG PO (15:44)
--- NOTE | 2018-11-30 15:56 | PHARADMIT ---
Addendum entered by Sandee Lyons 12/02/18 17:21: Pharmacy Note Subjective Objective VS ok, afebrile, ANC 1.15 Assessment rec'd one dose of Neupogen this morning Plan based on ANC , may need another dose. Repeat daily until ANC>1.5 (med in our -need to send to floor) potential discharge after labwork Addendum entered by Sandee Lyons 12/01/18 17:17: Pharmacy Note Subjective Stage-4 Pancreatic Cancer Objective VS ok, Afebrile, lytes ok, ANC 0.82, WBC 1.44, Plt 44, BG 198 Micro blood: no growth x72h Assessment Neupogen 480mcg SC daily until ANC>1.5 per MD (only 3 days' supply ordered, need to reassess in case we need more for the weekend) Holding Lovenox due to platlets-SubQ Heparin started Plan will return home when ready Original Note: Admission Pharmacy Clinical Review sepsis due to celluliis of BLE's, hypomagnesemia Code Status Full Code Current Weight Wgt- 138.8 kg Renally Cleared and Narrow Therapeutic Index Meds CrCl~ 111 mL/min Meds-OK QTc Value / Action Taken QTc-442 na BP Control, Fever BP- 128/70 Tmax- 37.3C Electrolytes reviewed Na- 139 K+3.9 Mag-1.9 DVT Prophylaxis Lovenox on hold due to low Plts Opiate Usage / Scheduled Bowel Regimen Ordered No Yes Plt/SCr for Heparin / Enoxaparin Plts-46 SCr-0.69 INR for Warfarin na H/H stable, WBC/Bands H&H- 7.5/23.3 getting transfusion) WBC- 2.28 Antibiotic appropriateness Vanco&Zosyn DC'd o Cultures and Sensitivities Blood-No growth 24-48 hrs Surgical ABX d/c within 24 hr na DM control / Insulin Dosing BG-270 Aspart, Lantus Heart Failure (Check EF%) (QUIRINO's, B-Block, Diuretics Lasix IV to PO Switch No Home Meds Reviewed Yes Home Meds Not Ordered Norvasc, HCTZ, Levaquin, Flagyl, Metformin, Comments Vancomyin trough -10, DC'd and changed to Clindamycin
[2018-11-30] MEDS: Insulin Aspart 300 UNITS/3 ML PEN 100 UNITS SC (16:41)
[2018-11-30] MEDS: Atorvastatin 40 MG TAB 80 MG PO (19:28)
[2018-11-30] MEDS: Insulin Glargine 300 UNITS/3 ML PEN 75 UNITS SC (21:08)
[2018-12-01 04:03] VITALS: BP 142/72; PULSE 82; RESP 16; TEMP 36.4; O2SAT 99
[2018-12-01] MEDS: CLINDAMYCIN 600 MG/50 ML BAG 100 MG IVPB ×3 (06:25→21:38)
[2018-12-01 07:03] LABS: Abs Immature Grans 0.01 k/cumm (0.0-0.09); Absolute Basophil Count 0.01 k/cumm (0.0-0.2); Absolute Eosinophil Count 0.04 k/cumm (0.0-0.7); Absolute Lymphocyte Count 0.48 k/cumm (1.2-3.4); Absolute Monocyte Count 0.08 k/cumm (0.11-0.7); Absolute Neutrophil Count 0.82 k/cumm (1.2-6.7); Basophils % 0.7; Eosinophils % 2.8; HCT 26.5 % (40.0-50.0); HGB 8.4 g/dL (13.5-17.5); Immature Grans % 0.7; Lymphocytes % 33.3; Mean Corp. HGB Concentration 31.7 g/dL (32.0-36.0); Mean Corpuscular Hemoglobin 28.6 pg (27.0-33.0); Mean Corpuscular Volume 90.1 fL (80-95); Mean Platelet Volume 10.9 fL (8.0-11.0); Monocytes % 5.6; Neutrophils % 56.9; RBC 2.94 m/cumm (4.50-6.00); RBC Distribution Width 18.2 % (11.8-14.1)
[2018-12-01 07:19] LABS: Anion Gap 9.5 mmol/L (3-11); BUN 9 mg/dL (7-18); CO2 25.5 mmol/L (21.0-32.0); CREATININE 0.65 mg/dL (0.70-1.30); Calcium 8.1 mg/dL (8.5-10.1); Chloride 106 mmol/L (98-107); Glucose 198 mg/dL (70-100); Magnesium 1.9 mg/dL (1.8-2.4); Potassium 4.1 mmol/L (3.5-5.1); Sodium 141 mmol/L (136-145)
[2018-12-01 07:24] LABS: White Blood Cell Count 1.44 k/cumm (4.4-10.8)
[2018-12-01 07:30] VITALS: PULSE 91; RESP 20; TEMP 36.4; O2SAT 98
[2018-12-01 08:02] LABS: Anisocytosis 2+; Diff Comment Diff Reviewed; Hypochromasia 2+; Platelet Count 44 x1000/uL (130-400); Polychromasia Present
[2018-12-01 08:03] LABS: Poikilocytes 2+
[2018-12-01] MEDS: Normal Saline Flush 10 ML SYR IVP ×2 (08:03→20:20)
[2018-12-01] MEDS: Magnesium Chloride 64 MG TABCR PO ×2 (08:03→20:22)
[2018-12-01] MEDS: Insulin Glargine 300 UNITS/3 ML PEN 75 UNITS SC ×2 (08:04→20:30)
[2018-12-01] MEDS: Loratidine 10 MG TAB PO (08:04)
[2018-12-01] MEDS: FLUoxetine 20 MG CAP PO (08:04)
[2018-12-01] MEDS: Insulin Aspart 300 UNITS/3 ML PEN 100 UNITS SC ×2 (08:09→17:13)
[2018-12-01 11:05] VITALS: BP 115/70; PULSE 82; RESP 20; TEMP 36.4; O2SAT 98
[2018-12-01] MEDS: Insulin Aspart 300 UNITS/3 ML PEN 30 UNITS SC (12:09)
[2018-12-01] MEDS: Insulin Aspart 300 UNITS/3 ML PEN SC ×2 (12:10→21:44)
[2018-12-01] MEDS: Heparin 5,000 UNITS/ML VIAL 5000 UNITS SC ×2 (14:54→21:39)
[2018-12-01 15:30] VITALS: BP 142/83; PULSE 87; RESP 20; TEMP 36.6; O2SAT 97
--- NOTE | 2018-12-01 16:30 | CMPROGNOTE_ITS ---
Care Management Progress Note S/O: Timmy was visiting with his family throughout the day, he has been placed on reverse precautions, but is aware the precautions are for his protection. He remains pleasant in interaction. CM continues to follow. A: 58 year old male admitted to [facility] 11/28/18 for Sepsis due to Cellulitis of BLE's P: Timmy will return home when ready per MD. He will follow up with [facility], his PCP and plan of care as prescribed. Undetermined ABX course planned for discharge at this time. CM continues to follow. Timmy will transport via private vehicle with family.
--- NOTE | 2018-12-01 17:44 | PGE_ITS ---
Date of Service Date of service: 12/01/18 Time of Service: 17:42 Assessment and Plan (1) Sepsis: Current visit: No Status: Acute Likely due to cellulitis of BLE's. Blood cx are negative. Improved with clindamycin - will continue. (2) Cellulitis of both lower extremities: Current visit: No Status: Acute As above (3) History of GI bleed: Current visit: No Status: Chronic No evidence for this at this time. Varices are a possibility with known portal hypertension, so we will monitor the patient closely. Per Dr Noel's recommendation, I am starting the patient on SQ heparin, but continuing to hold lovenox. 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 Will at least provide SQ heparin, per Hem/onc recommendations. (5) Hypomagnesemia: Current visit: No Status: Resolved Resolved. Off tele. Will recheck in am. (6) Nausea & vomiting: Current visit: No Status: Resolved Likely related to chemo. Tolerating regular consistency diet. (7) Diabetes: Current visit: No Status: Chronic Resume outpatient dosing of basal bolus insulin. (8) Pancreatic cancer: Current visit: No Status: Chronic Stage IV with mets to liver, lung, and bone; adrenal lesion as well (?met). On chemo with gemcitabine and paclitaxel. Per Dr Noel, patient's chemo on Friday is being delayed. Full code. Palliative care as outpatient is recommended. (9) Pancytopenia: Current visit: No Status: Acute Likely related to chemo. Hold lovenox, but start SQ heparin. H/H improved appropriately after 1 unit of pRBC's yesteday - no bleeding, but will monitor (does have a h/o GI bleeding). Starting neupogen for a target ANC of >1,500 (10) Discharge planning issues: Current visit: No Status: Acute Full code (11) DVT prophylaxis: Current visit: No Status: Acute Lovenox on hold due to thrombocytopenia. Now on SQ heparin Subjective Interval history since last seen: Mr Ko states he is feeling great. He was alarmed to hear that his WBC had dropped, reassured that I spoke with his oncologist who recommends neupogen. We also discussed his platelets. No bleeding reported. Denies dizziness, chest pain, shortness of breath, nausea, vomiting. Legs are looking better. Exam Narrative Exam Narrative: General: Very pleasant obese male, A&Ox3, laying comfortably in bed, joking, looks better HEENT: Atraumatic, normocephalic, EOMI, MMM Cardiovascular: RRR, no m/r/g Lungs: CTAB Gastrointestinal: soft, nontender, nondistended Genitourinary: deferred Extremities: +1 BLE edema, erythema R>L, significantly better today Objective Objective Clinical Data: Abnormal lab results 11/30/18 12/01/18 12/01/18 Range/Units 14:33 06:25 06:25 WBC 1.44 L* D (4.4-10.8) k/cumm RBC 2.94 L (4.50-6.00) m/cumm Hgb 8.4 L (13.5-17.5) g/dL Hct 26.5 L (40.0-50.0) % MCHC 31.7 L (32.0-36.0) g/dL RDW 18.2 H (11.8-14.1) % Plt Count 44 L (130-400) x1000/uL Absolute Neutrophils 0.82 L (1.2-6.7) k/cumm Absolute Lymphocytes 0.48 L (1.2-3.4) k/cumm Absolute Monocytes 0.08 L (0.11-0.7) k/cumm Creatinine 0.65 L (0.70-1.30) mg/dL Glucose 198 H (70-100) mg/dL Calcium 8.1 L (8.5-10.1) mg/dL Crossmatch See Detail Vital Signs Temperature 36.6 C 12/01/18 15:30 Temperature Source Tympanic 12/01/18 15:30 Pulse 87 12/01/18 15:30 Pulse Rhythm Regular 12/01/18 16:44 Pulse 98 H 11/28/18 16:40 Respiratory Rate 20 12/01/18 15:30 Respiratory Effort Non-Labored 12/01/18 16:44 Respiratory Depth Normal 12/01/18 16:44 Respiratory Pattern Normal 12/01/18 16:44 Blood Pressure 142/83 H 12/01/18 15:30 Blood Pressure Mean 60 11/28/18 15:46 Pulse Oximetry 97 12/01/18 15:30 Oxygen Delivery Method Room Air 12/01/18 15:30 Oxygen Flow Rate 0 12/01/18 15:30 Pain Level 0 12/01/18 15:30 Comment 11/30/18 03:35 Intake & Output 11/30/18 12/01/18 12/01/18 23:59 11:59 23:59 Intake Total 2275 / 3595 690 / 690 Balance 2275 / 3595 690 / 690 Weight 138.9 kg Intake: IV 240 / 910 80 / 80 Oral 1760 / 2410 610 / 610 Blood Product 275 / 275 Rbc Leuko Reduced Unit 275 / 275 [id number] Other: Comment pt gets up AD JONI to void. pt gets up AD JONI to void. Laboratory Results WBC 1.44 k/cumm (4.4-10.8) L* D 12/01/18 06:25 RBC 2.94 m/cumm (4.50-6.00) L 12/01/18 06:25 Hgb 8.4 g/dL (13.5-17.5) L 12/01/18 06:25 Hct 26.5 % (40.0-50.0) L 12/01/18 06:25 MCV 90.1 fL (80-95) 12/01/18 06:25 MCH 28.6 pg (27.0-33.0) 12/01/18 06:25 MCHC 31.7 g/dL (32.0-36.0) L 12/01/18 06:25 RDW 18.2 % (11.8-14.1) H 12/01/18 06:25 Plt Count 44 x1000/uL (130-400) L 12/01/18 06:25 MPV 10.9 fL (8.0-11.0) 12/01/18 06:25 Immature Gran % 0.7 12/01/18 06:25 Neutrophils % 56.9 12/01/18 06:25 Band Neutrophils % Cancelled 11/28/18 13:45 Lymphocytes % 33.3 12/01/18 06:25 Atypical Lymphs % Cancelled 11/28/18 13:45 Monocytes % 5.6 12/01/18 06:25 Eosinophils % 2.8 12/01/18 06:25 Basophils % 0.7 12/01/18 06:25 Metamyelocytes % Cancelled 11/28/18 13:45 Myelocytes % Cancelled 11/28/18 13:45 Promyelocytes % Cancelled 11/28/18 13:45 Absolute Neutrophils 0.82 k/cumm (1.2-6.7) L 12/01/18 06:25 Absolute Lymphocytes 0.48 k/cumm (1.2-3.4) L 12/01/18 06:25 Absolute Monocytes 0.08 k/cumm (0.11-0.7) L 12/01/18 06:25 Absolute Eosinophils 0.04 k/cumm (0.0-0.7) 12/01/18 06:25 Absolute Basophils 0.01 k/cumm (0.0-0.2) 12/01/18 06:25 Nucleated RBCs Cancelled 11/28/18 13:45 Differential Comment Diff reviewed 12/01/18 06:25 Other Cell Type Cancelled 11/28/18 13:45 RBC Morphology See below 12/01/18 06:25 Polychromasia Present 12/01/18 06:25 Hypochromasia 2+ 12/01/18 06:25 Poikilocytosis 2+ 12/01/18 06:25 Basophilic Stippling Cancelled 11/28/18 13:45 Anisocytosis 2+ 12/01/18 06:25 Microcytosis Cancelled 11/28/18 13:45 Macrocytosis Cancelled 11/28/18 13:45 Spherocytes Cancelled 11/28/18 13:45 Target Cells Cancelled 11/28/18 13:45 Tear Drop Cells Cancelled 11/28/18 13:45 Ovalocytes Cancelled 11/28/18 13:45 Stomatocytes Cancelled 11/28/18 13:45 [employer] Bodies Cancelled 11/28/18 13:45 [place] Cells Cancelled 11/28/18 13:45 Acanthocytes (Spur) Cancelled 11/28/18 13:45 Schistocytes Cancelled 11/28/18 13:45 Sodium 141 mmol/L (136-145) 12/01/18 06:25 Potassium 4.1 mmol/L (3.5-5.1) 12/01/18 06:25 Chloride 106 mmol/L (98-107) 12/01/18 06:25 Carbon Dioxide 25.5 mmol/L (21.0-32.0) 12/01/18 06:25 Anion Gap 9.5 mmol/L (3-11) 12/01/18 06:25 BUN 9 mg/dL (7-18) 12/01/18 06:25 Creatinine 0.65 mg/dL (0.70-1.30) L 12/01/18 06:25 Estimated GFR/1.73 m2 >= 60.00 (mL/min/1.73m2) 12/01/18 06:25 Glucose 198 mg/dL (70-100) H 12/01/18 06:25 Lactate 0.9 mmol/l (0.6-1.4) 11/30/18 05:25 Calcium 8.1 mg/dL (8.5-10.1) L 12/01/18 06:25 Magnesium 1.9 mg/dL (1.8-2.4) 12/01/18 06:25 Total Bilirubin 0.7 mg/dL (0.2-1.0) 11/28/18 13:45 AST 131 U/L (15-37) H 11/28/18 13:45 ALT 153 U/L (12-78) H 11/28/18 13:45 Alkaline Phosphatase 95 U/L (46-116) 11/28/18 13:45 Total Protein 7.2 g/dL (6.4-8.2) 11/28/18 13:45 Albumin 3.3 g/dL (3.4-5.0) L 11/28/18 13:45 Urine Color Yellow (Yellow) 11/28/18 16:00 Urine Clarity Clear (Clear) 11/28/18 16:00 Urine pH 6.0 (5-8) 11/28/18 16:00 Ur Specific [place] <= 1.005 (1.005-1.025) 11/28/18 16:00 Urine Protein Trace mg/dL (Negative) H 11/28/18 16:00 Urine Ketones Negative mg/dL (Negative) 11/28/18 16:00 Urine Blood Negative (Negative) 11/28/18 16:00 Urine Nitrite Negative (Negative) 11/28/18 16:00 Urine Bilirubin Negative (Negative) 11/28/18 16:00 Urine Urobilinogen 0.2 EU/dL (Up TO 0.2) 11/28/18 16:00 Ur Leukocyte Esterase Negative (Negative) 11/28/18 16:00 Urine RBC Negative (0-2) 11/28/18 16:00 Urine WBC 0-2 HPF (0-5) 11/28/18 16:00 Ur Epithelial Cells Rare HPF (Negative) 11/28/18 16:00 Urine Crystals Negative HPF (Negative) 11/28/18 16:00 Urine Bacteria Negative HPF (Negative) 11/28/18 16:00 Urine Casts 0-2 hyaline LPF (Negative) 11/28/18 16:00 Urine Mucus Negative (Negative) 11/28/18 16:00 Ur Culture Indicated? No 11/28/18 16:00 Urine Glucose Negative mg/dL (Negative) 11/28/18 16:00 Vancomycin Trough 10.0 ug/mL (10.0-20.0) 11/30/18 10:55 Patient ABO/Rh AB Positive 11/30/18 14:33 Antibody Screen Negative 11/30/18 14:33 Crossmatch See Detail 11/30/18 14:33
[2018-12-01] MEDS: Atorvastatin 40 MG TAB 80 MG PO (20:22)
[2018-12-01 20:33] VITALS: BP 137/76; PULSE 82; RESP 20; TEMP 37.3; O2SAT 97
[2018-12-01 23:16] VITALS: BP 137/73; PULSE 83; RESP 18; TEMP 36.6; O2SAT 97
--- NOTE | 2018-12-02 02:14 | NUR.NOTE ---
Nursing Note: Pt is pleasant and conversant. Cellulitis on the legs stated that are improving. Remains with edema on left foot. Right chest single port with good blood returned, flushed and patent. Did not require any pain med until this time. Started with heparin and pt well tolerated.Call lights at reach.Insulin coverages was given as demanded by pt. Protective Iso was observed.
[2018-12-02 03:33] VITALS: BP 152/80; PULSE 80; RESP 19; TEMP 36.1; O2SAT 97
[2018-12-02 06:01] LABS: Abs Immature Grans 0.06 k/cumm (0.0-0.09); HCT 27.8 % (40.0-50.0); HGB 8.8 g/dL (13.5-17.5); Mean Corp. HGB Concentration 31.7 g/dL (32.0-36.0); Mean Corpuscular Hemoglobin 28.8 pg (27.0-33.0); Mean Corpuscular Volume 90.8 fL (80-95); Mean Platelet Volume 10.6 fL (8.0-11.0); Platelet Count 45 x1000/uL (130-400); RBC 3.06 m/cumm (4.50-6.00); RBC Distribution Width 18.2 % (11.8-14.1)
[2018-12-02 06:07] LABS: White Blood Cell Count 1.86 k/cumm (4.4-10.8)
[2018-12-02 06:09] LABS: Anion Gap 8.5 mmol/L (3-11); BUN 12 mg/dL (7-18); CO2 24.5 mmol/L (21.0-32.0); CREATININE 0.83 mg/dL (0.70-1.30); Calcium 8.2 mg/dL (8.5-10.1); Chloride 106 mmol/L (98-107); Glucose 295 mg/dL (70-100); Magnesium 1.5 mg/dL (1.8-2.4); Potassium 4.2 mmol/L (3.5-5.1); Sodium 139 mmol/L (136-145)
--- NOTE | 2018-12-02 06:12 | NUR.NOTE ---
12/02/18 Per Sarita in Lab platelet count on pt is 45. will give heparin per MD's parameters. Nursing Note:
[2018-12-02] MEDS: Heparin 5,000 UNITS/ML VIAL 5000 UNITS SC ×3 (06:21→21:39)
[2018-12-02] MEDS: Normal Saline Flush 10 ML SYR IVP ×3 (06:22→21:38)
[2018-12-02] MEDS: CLINDAMYCIN 600 MG/50 ML BAG 100 MG IVPB ×3 (06:25→21:35)
--- NOTE | 2018-12-02 06:42 | NUR.NOTE ---
12/02 0545 TRIED TO DO LAB DRAW VIA PORT MULTI TIMES. PORT FLUSHES BUT NOT GETTING BLOOD RETURN. PT ON L SIDE. HAD PT TRY BACK AND THEN SITTING UP AT VARIOUS DEGREES IN BED. GOT 3-4CC OF DISCARD BLOOD AND THEN BLOOD STOPPED FLOWING. FLUSHED AGAIN VIGOROUSLY AND GRIS BACK HARD WITH NO BLOOD RETURN. FLUSHED WITH A TOTAL OF 5 1/2 10CC NS SYRINGES. HAD TRIED BOTH LUMENS ON SINGLE PORT LINE WITH NO LUCK ON BLOOD DRAW BUT BOTH LUMENS FLUSHED WITHOUT PROBLEM. NOTIFIED NURSE REGIONAL FACILITIES SPECIALIST OF THIS AND THAT PT'S DRSG ITCHES, PT HAS A TAPE SENSIVITEY AND HAS ASKED FOR A NTEGADERM 3000. REQUEST AND TROUBLESHOOTING OF INABILITY TO DO BLOOD DRAW WILL BE DONE. ursing Note:
[2018-12-02 06:51] LABS: Absolute Lymphocyte Count 0.54 k/cumm (1.2-3.4); Absolute Neutrophil Count 1.15 k/cumm (1.2-6.7)
[2018-12-02 06:52] LABS: Absolute Monocyte Count 0.11 k/cumm (0.11-0.7)
[2018-12-02 06:53] LABS: Diff Comment Manual Differential
[2018-12-02 06:54] LABS: Anisocytosis 2+; Hypochromasia 1+
[2018-12-02 06:55] LABS: Microcytosis 1+; Tear Drop Cells 2+
[2018-12-02 07:40] VITALS: BP 153/78; PULSE 80; RESP 19; TEMP 36.1; O2SAT 97
[2018-12-02] MEDS: FLUoxetine 20 MG CAP PO (08:28)
[2018-12-02] MEDS: Loratidine 10 MG TAB PO (08:28)
[2018-12-02] MEDS: Insulin Aspart 300 UNITS/3 ML PEN 100 UNITS SC ×2 (08:28→17:10)
[2018-12-02] MEDS: Magnesium Chloride 64 MG TABCR PO ×2 (08:28→20:28)
[2018-12-02] MEDS: Insulin Glargine 300 UNITS/3 ML PEN 75 UNITS SC ×2 (08:31→20:29)
[2018-12-02] MEDS: MAGNESIUM SULFATE 4 GM/100 ML BAG IVPB (11:20)
[2018-12-02 11:25] VITALS: BP 154/84; PULSE 95; RESP 17; TEMP 36.6; O2SAT 97
--- NOTE | 2018-12-02 11:41 | PDOC.CMPRO ---
Care Management Progress Note S/O-Met with Timmy today. He is now off reverse precautions and pleased about this. He states [facility], but there was some complication, and he said he didn't feel well, so he went home without new meds. He was readmitted on 11/28/18. Spoke with Carolin Wilkinson at the [facility] who explained they were notified of this admission and it is usually [facility] policy to cover until bed available at [facility]. Advised he will most likely be ready for d/c tomorrow per MD. She asked that new prescriptions be faxed to her at and they will facilitate on Friday after holiday. She asked if he could be sent home with enough medication to get him through until Friday. She will plan to cover [facility] services with him at their next visit. Advised Carolin that according to patient, and [facility] records he does not have any other insurance coverage. A-58 yo man admitted with sepsis due to cellulitis of BLE's. P-d/c home as per MD when medically appropriate. He will follow-up with PCP at [facility] and [facility] as directed. Transport via car with family.
[2018-12-02] MEDS: Insulin Aspart 300 UNITS/3 ML PEN 30 UNITS SC (11:51)
[2018-12-02] MEDS: Insulin Aspart 300 UNITS/3 ML PEN SC ×3 (11:51→21:35)
--- NOTE | 2018-12-02 14:02 | CHAPLAIN ---
Timmy was resting in bed when I visited. He was expecting his to arrive any minute. Timmy talked about his diagnosis and treatment as well as his treatment. This process, he said, has changed his perspective on life. He said he has had a lot of time to contemplate life, , his mission and gifts. He is not afraid of dying, but doesn't want to yet. He believes he has received answers to questions he has asked God, and he believes other will receive responses as well. He said he is happier now than he has been in a long time. Timmy is a member of [place], and was visited by Fr. Hope on Friday (11/30).
--- NOTE | 2018-12-02 15:35 | CMPROGNOTE_ITS ---
Care Management Progress Note S/O-Met with Timmy today. He is now off reverse precautions and pleased about this. 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 He was readmitted on 11/28/18. Spoke with Carolin Wilkinson at the [facility] who explained they were notified of this admission and it is usually [facility] policy to cover until bed available at [facility]. Advised he will most likely be ready for d/c tomorrow per MD. She asked that new prescriptions be faxed to her at and they will facilitate on Friday after holiday. She asked if he could be sent home with enough medication to get him through until Friday. She will plan to cover [facility] with him at their next visit. Advised Carolin that according to patient, and [facility] records he does not have any other insurance coverage. A-58 yo man admitted with sepsis due to cellulitis of BLE's. P-d/c home as per MD when medically appropriate. He will follow-up with PCP at [facility] and [facility] as directed. Transport via car with family.
[2018-12-02 16:30] VITALS: BP 158/89; PULSE 83; RESP 20; TEMP 36.7; O2SAT 98
--- NOTE | 2018-12-02 17:15 | W.PM.PROGNOT ---
Date of Service Date of service: 12/02/18 Time of Service: 16:30 Assessment and Plan (1) Sepsis: Current visit: No Status: Acute Due to cellulitis of BLE's. Blood cx are negative. Improved with clindamycin day 3 - continue. (2) Cellulitis of both lower extremities: Current visit: No Status: Acute As above (3) History of GI bleed: Current visit: No Status: Chronic No evidence for this at this time. Varices are a possibility with known portal hypertension, so we will monitor the patient closely. Per Dr Noel's recommendation, patient is on SQ heparin while plts are <50; continue to hold lovenox. 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 Continue SQ heparin, per Hem/onc recommendations. (5) Hypomagnesemia: Current visit: No Status: Acute Replete (6) Nausea & vomiting: Current visit: No Status: Resolved Likely related to chemo. Tolerating regular consistency diet. (7) Diabetes: Current visit: No Status: Chronic Continue outpatient dosing of basal bolus insulin. (8) Pancreatic cancer: Current visit: No Status: Chronic Stage IV with mets to liver, lung, and bone; adrenal lesion as well (?met). On chemo with gemcitabine and paclitaxel. Per Dr Noel, patient's chemo on Friday is being delayed. Full code. Palliative care as outpatient is recommended. (9) Pancytopenia: Current visit: No Status: Acute Likely related to chemo. Hold lovenox, continue SQ heparin, monitor plts. S/p transfusion of pRBC's on 11/30/18; H/H improved appropriately, stable; no evidence of bleeding S/p neupogen today - target ANC of >1,500 (10) Discharge planning issues: Current visit: No Status: Acute Full code Likely discharge home tomorrow (11) DVT prophylaxis: Current visit: No Status: Acute Lovenox on hold due to thrombocytopenia. Now on SQ heparin Subjective Interval history since last seen: Mr Ko thinks he is slowly getting better. He would love to go home tomorrow - there are festivities planned for December 03 with his grandkids. He denies dizziness, chest pain, shortness of breath, nausea, vomiting. He feels well enough to go home tomorrow. Exam Narrative Exam Narrative: General: Very pleasant obese male, A&Ox3, laying comfortably in bed, in good spirits HEENT: Atraumatic, normocephalic, EOMI, MMM Cardiovascular: RRR, no m/r/g Lungs: CTAB Gastrointestinal: soft, nontender, nondistended Genitourinary: deferred Extremities: +1 BLE edema, improved, erythema R>L, again significantly better today Objective Objective Clinical Data: Abnormal lab results 12/02/18 12/02/18 Range/Units 05:50 05:50 WBC 1.86 L* (4.4-10.8) k/cumm RBC 3.06 L (4.50-6.00) m/cumm Hgb 8.8 L (13.5-17.5) g/dL Hct 27.8 L (40.0-50.0) % MCHC 31.7 L (32.0-36.0) g/dL RDW 18.2 H (11.8-14.1) % Plt Count 45 L (130-400) x1000/uL Absolute Neutrophils 1.15 L (1.2-6.7) k/cumm Absolute Lymphocytes 0.54 L (1.2-3.4) k/cumm Glucose 295 H (70-100) mg/dL Calcium 8.2 L (8.5-10.1) mg/dL Magnesium 1.5 L (1.8-2.4) mg/dL Vital Signs Temperature 36.7 C 12/02/18 16:30 Temperature Source Tympanic 12/02/18 16:30 Pulse 83 12/02/18 16:30 Pulse Rhythm Regular 12/02/18 15:54 Pulse 98 H 11/28/18 16:40 Respiratory Rate 20 12/02/18 16:30 Respiratory Effort Non-Labored 12/02/18 15:54 Respiratory Depth Normal 12/02/18 15:54 Respiratory Pattern Normal 12/02/18 15:54 Blood Pressure 158/89 H 12/02/18 16:30 Blood Pressure Mean 60 11/28/18 15:46 Pulse Oximetry 98 12/02/18 16:30 Oxygen Delivery Method Room Air 12/02/18 16:30 Oxygen Flow Rate 0 12/02/18 16:30 Pain Level 0 12/02/18 16:30 Comment 11/30/18 03:35 Intake & Output 12/01/18 12/02/18 12/02/18 23:59 11:59 23:59 Intake Total 630 / 1320 500 / 1040 540 / 1040 Balance 630 / 1320 500 / 1040 540 / 1040 Weight 139.8 kg Intake: IV 150 / 230 50 / 50 Oral 480 / 1090 450 / 990 540 / 990 Other: Comment reports voiding independently Voiding Methods Toilet Toilet Laboratory Results WBC 1.86 k/cumm (4.4-10.8) L* 12/02/18 05:50 RBC 3.06 m/cumm (4.50-6.00) L 12/02/18 05:50 Hgb 8.8 g/dL (13.5-17.5) L 12/02/18 05:50 Hct 27.8 % (40.0-50.0) L 12/02/18 05:50 MCV 90.8 fL (80-95) 12/02/18 05:50 MCH 28.8 pg (27.0-33.0) 12/02/18 05:50 MCHC 31.7 g/dL (32.0-36.0) L 12/02/18 05:50 RDW 18.2 % (11.8-14.1) H 12/02/18 05:50 Plt Count 45 x1000/uL (130-400) L 12/02/18 05:50 MPV 10.6 fL (8.0-11.0) 12/02/18 05:50 Immature Gran % 0.0 12/02/18 05:50 Neutrophils % 61.0 12/02/18 05:50 Band Neutrophils % 1.0 % 12/02/18 05:50 Lymphocytes % 29.0 12/02/18 05:50 Atypical Lymphs % Cancelled 11/28/18 13:45 Monocytes % 6.0 12/02/18 05:50 Eosinophils % 0.0 12/02/18 05:50 Basophils % 0.0 12/02/18 05:50 Metamyelocytes % 2.0 % 12/02/18 05:50 Myelocytes % Cancelled 11/28/18 13:45 Promyelocytes % Cancelled 11/28/18 13:45 Absolute Neutrophils 1.15 k/cumm (1.2-6.7) L 12/02/18 05:50 Absolute Lymphocytes 0.54 k/cumm (1.2-3.4) L 12/02/18 05:50 Absolute Monocytes 0.11 k/cumm (0.11-0.7) 12/02/18 05:50 Absolute Eosinophils 0.00 k/cumm (0.0-0.7) 12/02/18 05:50 Absolute Basophils 0.00 k/cumm (0.0-0.2) 12/02/18 05:50 Nucleated RBCs Cancelled 11/28/18 13:45 Differential Comment Manual differential 12/02/18 05:50 Other Cell Type Cancelled 11/28/18 13:45 RBC Morphology See below 12/02/18 05:50 Polychromasia Present 12/01/18 06:25 Hypochromasia 1+ 12/02/18 05:50 Poikilocytosis 2+ 12/01/18 06:25 Basophilic Stippling Cancelled 11/28/18 13:45 Anisocytosis 2+ 12/02/18 05:50 Microcytosis 1+ 12/02/18 05:50 Macrocytosis Cancelled 11/28/18 13:45 Spherocytes Cancelled 11/28/18 13:45 Target Cells Cancelled 11/28/18 13:45 Tear Drop Cells 2+ 12/02/18 05:50 Ovalocytes Cancelled 11/28/18 13:45 Stomatocytes Cancelled 11/28/18 13:45 [place] Bodies Cancelled 11/28/18 13:45 [place] Cells Cancelled 11/28/18 13:45 Acanthocytes (Spur) Cancelled 11/28/18 13:45 Schistocytes Cancelled 11/28/18 13:45 Sodium 139 mmol/L (136-145) 12/02/18 05:50 Potassium 4.2 mmol/L (3.5-5.1) 12/02/18 05:50 Chloride 106 mmol/L (98-107) 12/02/18 05:50 Carbon Dioxide 24.5 mmol/L (21.0-32.0) 12/02/18 05:50 Anion Gap 8.5 mmol/L (3-11) 12/02/18 05:50 BUN 12 mg/dL (7-18) 12/02/18 05:50 Creatinine 0.83 mg/dL (0.70-1.30) 12/02/18 05:50 Estimated GFR/1.73 m2 >= 60.00 (mL/min/1.73m2) 12/02/18 05:50 Glucose 295 mg/dL (70-100) H 12/02/18 05:50 Lactate 0.9 mmol/l (0.6-1.4) 11/30/18 05:25 Calcium 8.2 mg/dL (8.5-10.1) L 12/02/18 05:50 Magnesium 1.5 mg/dL (1.8-2.4) L 12/02/18 05:50 Total Bilirubin 0.7 mg/dL (0.2-1.0) 11/28/18 13:45 AST 131 U/L (15-37) H 11/28/18 13:45 ALT 153 U/L (12-78) H 11/28/18 13:45 Alkaline Phosphatase 95 U/L (46-116) 11/28/18 13:45 Total Protein 7.2 g/dL (6.4-8.2) 11/28/18 13:45 Albumin 3.3 g/dL (3.4-5.0) L 11/28/18 13:45 Urine Color Yellow (Yellow) 11/28/18 16:00 Urine Clarity Clear (Clear) 11/28/18 16:00 Urine pH 6.0 (5-8) 11/28/18 16:00 Ur Specific [place] <= 1.005 (1.005-1.025) 11/28/18 16:00 Urine Protein Trace mg/dL (Negative) H 11/28/18 16:00 Urine Ketones Negative mg/dL (Negative) 11/28/18 16:00 Urine Blood Negative (Negative) 11/28/18 16:00 Urine Nitrite Negative (Negative) 11/28/18 16:00 Urine Bilirubin Negative (Negative) 11/28/18 16:00 Urine Urobilinogen 0.2 EU/dL (Up TO 0.2) 11/28/18 16:00 Ur Leukocyte Esterase Negative (Negative) 11/28/18 16:00 Urine RBC Negative (0-2) 11/28/18 16:00 Urine WBC 0-2 HPF (0-5) 11/28/18 16:00 Ur Epithelial Cells Rare HPF (Negative) 11/28/18 16:00 Urine Crystals Negative HPF (Negative) 11/28/18 16:00 Urine Bacteria Negative HPF (Negative) 11/28/18 16:00 Urine Casts 0-2 hyaline LPF (Negative) 11/28/18 16:00 Urine Mucus Negative (Negative) 11/28/18 16:00 Ur Culture Indicated? No 11/28/18 16:00 Urine Glucose Negative mg/dL (Negative) 11/28/18 16:00 Vancomycin Trough 10.0 ug/mL (10.0-20.0) 11/30/18 10:55 Patient ABO/Rh AB Positive 11/30/18 14:33 Antibody Screen Negative 11/30/18 14:33 Crossmatch See Detail 11/30/18 14:33
[2018-12-02 19:42] VITALS: BP 162/86; PULSE 90; RESP 18; TEMP 36.9; O2SAT 98
[2018-12-02] MEDS: Pantoprazole 40 MG TABCR PO (20:28)
[2018-12-02] MEDS: Atorvastatin 40 MG TAB 80 MG PO (20:28)
[2018-12-02 23:28] VITALS: BP 132/75; PULSE 89; RESP 19; TEMP 37; O2SAT 97
[2018-12-03] MEDS: Heparin 5,000 UNITS/ML VIAL 5000 UNITS SC (05:39)
[2018-12-03] MEDS: CLINDAMYCIN 600 MG/50 ML BAG 100 MG IVPB (05:40)
[2018-12-03] MEDS: Normal Saline Flush 10 ML SYR IVP ×2 (05:40→08:29)
[2018-12-03 05:50] VITALS: BP 138/78; PULSE 84; RESP 20; TEMP 36.8; O2SAT 100
[2018-12-03 06:41] LABS: Anion Gap 7.7 mmol/L (3-11); BUN 12 mg/dL (7-18); CO2 26.3 mmol/L (21.0-32.0); CREATININE 0.73 mg/dL (0.70-1.30); Calcium 8.2 mg/dL (8.5-10.1); Chloride 107 mmol/L (98-107); Glucose 221 mg/dL (70-100); Magnesium 1.6 mg/dL (1.8-2.4); Potassium 4.1 mmol/L (3.5-5.1); Sodium 141 mmol/L (136-145)
[2018-12-03 06:57] LABS: Abs Immature Grans 0.09 k/cumm (0.0-0.09); HCT 27.8 % (40.0-50.0); HGB 8.8 g/dL (13.5-17.5); Mean Corp. HGB Concentration 31.7 g/dL (32.0-36.0); Mean Corpuscular Hemoglobin 29.1 pg (27.0-33.0); Mean Corpuscular Volume 92.1 fL (80-95); Platelet Count 50 x1000/uL (130-400); RBC 3.02 m/cumm (4.50-6.00); RBC Distribution Width 18.7 % (11.8-14.1); White Blood Cell Count 6.09 k/cumm (4.4-10.8)
[2018-12-03] MEDS: Pantoprazole 40 MG TABCR PO (07:32)
[2018-12-03 07:40] VITALS: BP 165/84; PULSE 94; RESP 19; TEMP 36.8; O2SAT 98
[2018-12-03 07:51] LABS: Absolute Basophil Count 0.06 k/cumm (0.0-0.2); Absolute Eosinophil Count 0.12 k/cumm (0.0-0.7); Absolute Lymphocyte Count 0.67 k/cumm (1.2-3.4); Absolute Neutrophil Count 4.69 k/cumm (1.2-6.7)
[2018-12-03 07:52] LABS: Anisocytosis 2+; Diff Comment Manual Differential; Nucleated RBC 2 /100WBC
[2018-12-03] MEDS: Loratidine 10 MG TAB PO (07:52)
[2018-12-03] MEDS: Magnesium Chloride 64 MG TABCR PO ×2 (07:52→10:53)
[2018-12-03] MEDS: FLUoxetine 20 MG CAP PO (07:52)
[2018-12-03 07:53] LABS: Poikilocytes 2+
[2018-12-03 07:54] LABS: Other Cells 2
[2018-12-03] MEDS: Insulin Aspart 300 UNITS/3 ML PEN 100 UNITS SC (08:10)
[2018-12-03] MEDS: Insulin Aspart 300 UNITS/3 ML PEN SC (08:11)
[2018-12-03] MEDS: Insulin Glargine 300 UNITS/3 ML PEN 75 UNITS SC (08:13)
[2018-12-03] MEDS: MAGNESIUM SULFATE 2 GM/50 ML BAG IVPB (08:29)
--- NOTE | 2018-12-03 10:25 | W.PM.DS.N ---
Date of service: 12/03/18 Time of Service: 10:25 DS: Diagnosis Discharge Diagnosis (1) Sepsis: Status: Acute (2) Cellulitis of both lower extremities: Status: Acute (3) History of GI bleed: Status: Chronic (4) SVC syndrome: Status: Chronic (5) Hypomagnesemia: Status: Acute (6) Nausea & vomiting: Status: Resolved Asessment and Plan: due to chemo (7) Diabetes: Status: Chronic (8) Pancreatic cancer: Status: Chronic (9) Pancytopenia: Status: Acute (10) Splenic vein thrombosis: Status: Chronic Discharge Plan Disposition Patient Disposition: HOME Condition: Stable Discharge Details Chief Complaint: Nausea/Vomit/Diar Reason For Visit: SEPSIS DUE TO CELLULITIS OF BLE'S, HYPOMAGNESEMIA Admit Date/Time: 11/28/18 15:41 Admit Provider: Concetta Salazar Attending Provider: Concetta Salazar Primary Care Provider: Rosalva Ingram ED Provider: Odin Guy Hospital Course Hospital Course: Mr Ko is a 58 year old male with PMHx of metastatic pancreatic cancer on chemo, SVC syndrome, splenic vein thrombosis, on lovenox, pancytopenia, IDDM2, recent admission for an abscessed tooth, who was admitted to [facility] on 11/28/18 for sepsis due to cellulitis of BLE's. He was initiated on vancomycin and zosyn. His blood cultures (including his infusaport) were negative. He was slow to respond to vancomycin/zosyn, so he was switched to IV clindamycin with goal to cover both his known tooth infection as well as the cellulitis. With this change of IV antibiotics, we noticed significant rapid improvement. We feel that the patient is stable for discharge home today to complete 10 more days of oral antibiotics. It is important to note that the patient did become more pancytopenic than his normal while here, with his platelets dipping into 40's, requiring a change from his therapeutic lovenox to prophylactic doses of subcutaneous heparin. Thankfully, on discharge his platelets are 50,000, so he cane resume his lovenox on discharge. He did require a transfusion of 1 unit of pRBC's on 11/30/18. There was no evidence of bleeding on this admission. He did also require neupogen for transient neutropenia - his ANC on day of discharge is 4.69. The patient needed repetitive magnesium repletion on this admission. His magnesium levels will need to be followed as outpatient - we are giving him a prescription for a blood draw on 12/07/18. He is asked to follow up with his dentist. 45 minutes were spent on care for patient as well as preparation of his discharge on day of discharge Home Meds and New Rx's Prescriptions: New magnesium chloride [Mag 64] 64 mg Tablet,Delayed Release (Dr/Ec) 128 mg PO BID Qty: 40 RF: 0 clindamycin HCl 300 mg capsule 600 mg PO TID Qty: 30 RF: 0 Continued enoxaparin [Lovenox] 80 mg/0.8 mL Syringe 75 mg subcut BID RF: 0 metformin 500 mg Tablet 500 mg PO BID RF: 0 atorvastatin 80 mg Tablet 80 mg PO DAILY RF: 0 ondansetron HCl 2 mg/mL Solution 4 mg RF: 0 omeprazole 40 mg Capsule,Delayed Release(Dr/Ec) 40 mg PO BID RF: 0 amlodipine 10 mg Tablet 10 mg PO DAILY RF: 0 hydrochlorothiazide 25 mg Tablet 25 mg PO DAILY RF: 0 fluoxetine 20 mg Capsule 20 mg PO DAILY RF: 0 lactobacillus combo #5 150 mg (2 billion cell) Tablet,Delayed Release (Dr/Ec) 150 mg PO DAILY RF: 0 Lantus U-100 Insulin 100 unit/mL Solution 75 unit SUBCUT BID RF: 0 Novolog U-100 Insulin aspart 100 unit/mL Solution RF: 0 lorazepam 1 mg Tablet 1 mg PO Q4H PRN PRNRF: 0 docusate sodium 100 mg Capsule 100 mg PO BID RF: 0 loratadine 10 mg Tablet 10 mg PO DAILY RF: 0 prochlorperazine maleate 5 mg Tablet RF: 0 Discontinued levofloxacin [Levaquin] 750 mg Tablet 750 mg PO QAM Qty: 7 RF: 0 metronidazole 500 mg Tablet 500 mg PO Q8H Qty: 21 RF: 0 Discharge Instructions Instructions: Clindamycin (By mouth), Cellulitis (DC), Sepsis (GEN) Additional Instructions: Make sure you follow up with your dentist. Blood work on Friday. Finish your antibiotics as prescribed unless told to stop early by a health care provider. Follow up with your oncologist and PCP. Return to the hospital with any fever, bleeding, chest pain, or shortness of breath. Double up on your magnesium at home [facility]one Forms: Nursing Discharge Form Referrals: Rosalva Ingram [Primary Care Provider] - 12/11/18 2:30 pm Activity:: Activity as Tolerated Equipment/Supplies:: No Equipment Needed Diet:: diabetic cardiac Discharge Orders Discharge Orders: Discharge Order (Routine); Ordered 12/03/18 Ordered By: Concetta Salazar Other Ambulatory Orders: Basic Metabolic Panel (Routine) Timeframe: 20181207 Location: Determined by Patient Ordered By: Concetta Salazar Complete Blood Count w/Diff (Routine) Timeframe: 20181207 Location: Determined by Patient Ordered By: Concetta Salazar Magnesium (Routine) Timeframe: 20181207 Location: Determined by Patient Ordered By: Concetta Salazar Exam Narrative Exam Narrative: General: Very pleasant obese male, A&Ox3, laying comfortably in bed, in good spirits HEENT: Atraumatic, normocephalic, EOMI, MMM Cardiovascular: RRR, no m/r/g Lungs: CTAB Gastrointestinal: soft, nontender, nondistended Extremities: trace BLE edema, improved, erythema R>L, much much better today DS: Data Vitals/I&O Vitals and I&O: Vital Signs Temperature 36.8 C 12/03/18 07:40 Temperature Source Tympanic 12/03/18 07:40 Pulse 94 H 12/03/18 07:40 Pulse Rhythm Regular 12/03/18 07:37 Pulse 98 H 11/28/18 16:40 Respiratory Rate 19 12/03/18 07:40 Respiratory Effort Non-Labored 12/03/18 07:37 Respiratory Depth Normal 12/03/18 07:37 Respiratory Pattern Normal 12/03/18 07:37 Blood Pressure 165/84 H 12/03/18 07:40 Blood Pressure Mean 60 11/28/18 15:46 Pulse Oximetry 98 12/03/18 07:40 Oxygen Delivery Method Room Air 12/03/18 07:40 Oxygen Flow Rate 0 12/03/18 07:40 Pain Level 0 12/03/18 05:50 Comment 11/30/18 03:35 Intake & Output 12/02/18 12/02/18 12/03/18 11:59 23:59 11:59 Intake Total 500 / 2100 1600 / 2100 680 / 680 Balance 500 / 2100 1600 / 2100 680 / 680 Weight 139.8 kg 140.2 kg Intake: IV 50 / 150 100 / 150 Oral 450 / 1950 1500 / 1950 680 / 680 Other: Comment reports voiding independently reports voiding independently Voiding Methods Toilet Toilet Toilet Completed studies during hospitalization [Text1]: CT abdomen/pelvis 11/28/18: Pancreatic mass. Liver metastases. Left adrenal metastasis as well as bony metastases. No acute abnormality is identified. CXR: No acute abnormality. Labs on day of discharge: Labs from last 24 hours 12/03/18 12/03/18 06:00 06:00 WBC 6.09 D RBC 3.02 L Hgb 8.8 L Hct 27.8 L MCV 92.1 MCH 29.1 MCHC 31.7 L RDW 18.7 H Plt Count 50 L MPV 11.0 Immature Gran % See Differential Neutrophils % 73.0 Band Neutrophils % 4.0 Lymphocytes % 11.0 Monocytes % 5.0 Eosinophils % 2.0 Basophils % 1.0 Metamyelocytes % 1.0 Myelocytes % 1.0 Absolute Neutrophils 4.69 Absolute Lymphocytes 0.67 L Absolute Monocytes 0.30 Absolute Eosinophils 0.12 Absolute Basophils 0.06 Nucleated RBCs 2 Differential Comment Manual differential Other Cell Type 2 RBC Morphology See below Poikilocytosis 2+ Anisocytosis 2+ Sodium 141 Potassium 4.1 Chloride 107 Carbon Dioxide 26.3 Anion Gap 7.7 BUN 12 Creatinine 0.73 Estimated GFR/1.73 m2 >= 60.00 Glucose 221 H Calcium 8.2 L Magnesium 1.6 L Path Cons Comment Pending Preliminary micro results at discharge 11/28/18 14:07 Blood Culture - Preliminary Blood NO GROWTH 96 HOURS 11/28/18 13:45 Blood Culture - Preliminary Blood NO GROWTH 96 HOURS PFSH Medical History Hypomagnesemia (Acute) Hypokalemia (Acute) Sepsis (Acute) Dental abscess (Acute) Nausea & vomiting (Resolved) Tali-[place]guilar tear (Resolved ~07/2018) Diabetes (Chronic) Pancreatic cancer (Chronic ~04/2018) Dyslipidemia (Acute) Portal hypertension (Acute) Adrenal incidentaloma (Chronic) Depression (Chronic) GERD (gastroesophageal reflux disease) (Chronic) Hypertension (Chronic) Nephrolithiasis (Chronic) Obstructive sleep apnea (Chronic) SVC syndrome (Chronic) Splenic vein thrombosis (Chronic) Surgical History H/O esophagogastroduodenoscopy (Chronic) Port-A-Cath in place (Chronic) History of lumbar laminectomy (Resolved ~04/2017) Social History Smoking/Tobacco Use Status: Former Tobacco Use Quit Date: 12/31/16 Pack-years: 5 Alcohol Intake: former Household members: spouse Do you feel safe at home: Yes Do you feel safe in your relationship?: Yes
[2018-12-03 11:50] VITALS: BP 139/83; PULSE 99; RESP 18; TEMP 36.5; O2SAT 98
[2018-12-03] MEDS: Insulin Aspart 300 UNITS/3 ML PEN 30 UNITS SC (12:02)
--- NOTE | 2018-12-03 13:26 | PDOC.CMDIS ---
- If Service Date Differs Date of service: 12/03/18 Time of Service: 13:26 LACE Index Scoring Tool - Questions: Length of Stay (in days): 4 - 6 Acuity (Admit via E.D.?): Yes Comorbidities: Any Tumor E.D. Visits: 2 - Answers: Total Score: 11 Risk of Readmission: High Risk Care Management Discharge Reason for Hospitalization: Sepsis due to cellulitis BLEs Discharge Plan: Sunil is being discharge home today with no services and [facility] and he will reschedule his dental appointment. CM coordinated enough antibioitcs to last until he can obtain his prescriptions through [facility] on Friday. CM faxed prescriptions and discharge summary to Carolin Wilkinson RN coordiantor at the [facility] and she will contact the pt directly to follow up. Sunil knows Carolin well and has worked with her in the past. Spouse will transport Sunil home at time of discharge. Patient/Family Education Needs: Sunil was provided education realted to medication and management, follow up care and when to contact provider. Education was provided related to self management and risk of not taking or completing antibioitcs as directed. Sunil states that he feels ready to be discharged and is impressed with the level of care he has received at [facility]. He states he is truly grateful for all the care he has received and will share his positive experaince in the community.
--- NOTE | 2018-12-03 13:32 | CMDISCH_ITS ---
- If Service Date Differs Date of service: 12/03/18 Time of Service: 13:26 LACE Index Scoring Tool - Questions: Length of Stay (in days): 4 - 6 Acuity (Admit via E.D.?): Yes Comorbidities: Any Tumor E.D. Visits: 2 - Answers: Total Score: 11 Risk of Readmission: High Risk Care Management Discharge Reason for Hospitalization: Sepsis due to cellulitis BLEs Discharge Plan: Sunil is being discharge home today with no services and [facility] and he will reschedule his dental appointment. CM coordinated enough antibioitcs to last until he can obtain his prescriptions through the [facility] on Friday. CM faxed prescriptions and discharge summary to Carolin Wilkinson RN coordiantor at the [facility] and she will contact the pt directly to follow up. Sunil knows Carolin well and has worked with her in the past. Spouse will transport Sunil home at time of discharge. Patient/Family Education Needs: Sunil was provided education realted to medication and management, follow up care and when to contact provider. Education was provided related to self management and risk of not taking or completing antibioitcs as directed. Sunil states that he feels ready to be discharged and is impressed with the level of care he has received at [facility]. He states he is truly grateful for all the care he has received and will share his positive experaince in the community.
== END 2018-12-03 12:33 | disposition home or self-care (01) | DRG 872 ==
LOC: ER 16:17 → MS 17:01
PROVIDERS: Family Medicine; Nurse Practitioner Family; Admitting Provider Internal Medicine; Emergency Provider Emergency Medicine; PCP Nurse Practitioner Primary Care; Visit Provider Internal Medicine
DX: A41.9 Sepsis, unspecified organism (principal); L03.115 Cellulitis of right lower limb; L03.116 Cellulitis of left lower limb; C25.9 Malignant neoplasm of pancreas, unspecified; D61.818 Other pancytopenia; I82.890 Acute embolism and thrombosis of other specified veins; C78.7 Secondary malignant neoplasm of liver and intrahepatic bile duct; C79.51 Secondary malignant neoplasm of bone; C79.72 Secondary malignant neoplasm of left adrenal gland; I87.1 Compression of vein; K76.6 Portal hypertension; C78.00 Secondary malignant neoplasm of unspecified lung; K04.7 Periapical abscess without sinus; E83.42 Hypomagnesemia; R11.2 Nausea with vomiting, unspecified; T45.1X5A Adverse effect of antineoplastic and immunosuppressive drugs, initial encounter; Z79.01 Long term (current) use of anticoagulants; E11.9 Type 2 diabetes mellitus without complications; Z79.4 Long term (current) use of insulin; I10 Essential (primary) hypertension; K21.9 Gastro-esophageal reflux disease without esophagitis; G47.33 Obstructive sleep apnea (adult) (pediatric); Z87.19 Personal history of other diseases of the digestive system; Z45.2 Encounter for adjustment and management of vascular access device
CPT/HCPCS: 36415; 80048; 80053; 86850; 86900; 86901; 86920; 87040; 96361; 96365; 96366; 96368; 96372; 99223; 99232; 99233; 99239; 99285; 71046; 74177; 80202; 81003; 81015; 83605; 83735; 85025; 85049; 99284; J1644; J1650; J1815; J2405; J2543; J3475; J3490; P9016; Q9967

== ENCOUNTER 2018-12-24 01:37 | Outpatient (RCR) | payer OTHER, SELFPAY ==
[2018-12-07] MEDS: Normal Saline Flush 10 ML SYR IVP (13:45)
[2018-12-07] MEDS: Heparin 500 UNITS/5 ML SYRINGE IV (13:46)
[2018-12-07 13:58] LABS: HCT 38.9 % (40.0-50.0); HGB 12.5 g/dL (13.5-17.5); Mean Corp. HGB Concentration 32.1 g/dL (32.0-36.0); Mean Corpuscular Hemoglobin 28.4 pg (27.0-33.0); Mean Corpuscular Volume 88.4 fL (80-95); Mean Platelet Volume 10.6 fL (8.0-11.0); Platelet Count 227 x1000/uL (130-400); RBC Distribution Width 18.9 % (11.8-14.1); White Blood Cell Count 6.31 k/cumm (4.4-10.8)
[2018-12-07 14:16] LABS: Anion Gap 13.1 mmol/L (3-11); BUN 22 mg/dL (7-18); CO2 24.9 mmol/L (21.0-32.0); CREATININE 1.04 mg/dL (0.70-1.30); Calcium 9.7 mg/dL (8.5-10.1); Chloride 97 mmol/L (98-107); Glucose 372 mg/dL (70-100); Magnesium 1.7 mg/dL (1.8-2.4); Potassium 4.5 mmol/L (3.5-5.1); Sodium 135 mmol/L (136-145)
[2018-12-07 14:29] LABS: Absolute Eosinophil Count 0.19 k/cumm (0.0-0.7); Absolute Lymphocyte Count 1.58 k/cumm (1.2-3.4); Absolute Monocyte Count 0.19 k/cumm (0.11-0.7); Absolute Neutrophil Count 4.04 k/cumm (1.2-6.7); Diff Comment Manual Differential
[2018-12-07 14:30] LABS: Anisocytosis 1+; Macrocytosis 1+; Microcytosis 1+; Poikilocytes 1+; Polychromasia Present
[2018-12-11 09:56] LABS: Abs Immature Grans 0.05 k/cumm (0.0-0.09); Absolute Basophil Count 0.03 k/cumm (0.0-0.2); Absolute Eosinophil Count 0.07 k/cumm (0.0-0.7); Absolute Lymphocyte Count 1.06 k/cumm (1.2-3.4); Basophils % 0.8; Eosinophils % 1.8; HCT 36.5 % (40.0-50.0); HGB 11.5 g/dL (13.5-17.5); Immature Grans % 1.3; Lymphocytes % 26.7; Mean Corp. HGB Concentration 31.5 g/dL (32.0-36.0); Mean Corpuscular Hemoglobin 28.3 pg (27.0-33.0); Mean Corpuscular Volume 89.7 fL (80-95); Mean Platelet Volume 10.1 fL (8.0-11.0); Monocytes % 10.1; Neutrophils % 59.3; Platelet Count 214 x1000/uL (130-400); RBC 4.07 m/cumm (4.50-6.00); White Blood Cell Count 3.97 k/cumm (4.4-10.8)
[2018-12-11 09:58] LABS: Absolute Neutrophil Count 2.35 k/cumm (1.2-6.7)
[2018-12-11 10:26] LABS: ALT 32 U/L (12-78); AST 21 U/L (15-37); Albumin 3.7 g/dL (3.4-5.0); Alkaline Phosphatase 109 U/L (46-116); Anion Gap 15.6 mmol/L (3-11); BUN 20 mg/dL (7-18); Bilirubin, Total 0.3 mg/dL (0.2-1.0); CO2 23.4 mmol/L (21.0-32.0); CREATININE 0.97 mg/dL (0.70-1.30); Calcium 8.7 mg/dL (8.5-10.1); Chloride 100 mmol/L (98-107); Glucose 297 mg/dL (70-100); Magnesium 1.2 mg/dL (1.8-2.4); Potassium 3.4 mmol/L (3.5-5.1); Sodium 139 mmol/L (136-145); Total Protein 7.6 g/dL (6.4-8.2)
[2018-12-14] MEDS: Normal Saline Flush 10 ML SYR IVP (07:35)
[2018-12-14] MEDS: Heparin 500 UNITS/5 ML SYRINGE IV (07:54)
[2018-12-14 08:02] LABS: Abs Immature Grans 0.03 k/cumm (0.0-0.09); Absolute Basophil Count 0.02 k/cumm (0.0-0.2); Absolute Eosinophil Count 0.07 k/cumm (0.0-0.7); Absolute Lymphocyte Count 0.93 k/cumm (1.2-3.4); Absolute Monocyte Count 0.35 k/cumm (0.11-0.7); Absolute Neutrophil Count 2.68 k/cumm (1.2-6.7); Basophils % 0.5; Eosinophils % 1.7; HCT 33.7 % (40.0-50.0); HGB 10.6 g/dL (13.5-17.5); Immature Grans % 0.7; Lymphocytes % 22.8; Mean Corp. HGB Concentration 31.5 g/dL (32.0-36.0); Mean Corpuscular Hemoglobin 28.5 pg (27.0-33.0); Mean Corpuscular Volume 90.6 fL (80-95); Mean Platelet Volume 10.3 fL (8.0-11.0); Monocytes % 8.6; Neutrophils % 65.7; Platelet Count 169 x1000/uL (130-400); RBC 3.72 m/cumm (4.50-6.00); RBC Distribution Width 17.8 % (11.8-14.1); White Blood Cell Count 4.08 k/cumm (4.4-10.8)
[2018-12-14 08:17] LABS: ALT 36 U/L (12-78); AST 26 U/L (15-37); Albumin 3.7 g/dL (3.4-5.0); Alkaline Phosphatase 96 U/L (46-116); Anion Gap 8.7 mmol/L (3-11); BUN 15 mg/dL (7-18); Bilirubin, Total 0.3 mg/dL (0.2-1.0); CO2 28.3 mmol/L (21.0-32.0); CREATININE 0.71 mg/dL (0.70-1.30); Calcium 8.9 mg/dL (8.5-10.1); Chloride 102 mmol/L (98-107); Glucose 254 mg/dL (70-100); Magnesium 1.4 mg/dL (1.8-2.4); Potassium 3.6 mmol/L (3.5-5.1); Sodium 139 mmol/L (136-145); Total Protein 7.5 g/dL (6.4-8.2)
[2018-12-16 13:54] LABS: CA 19-9 9224 U/mL (<35)
[2018-12-16 14:51] LABS: CA 19-9 6790 U/mL (<35)
[2018-12-17] MEDS: Normal Saline Flush 10 ML SYR IVP (08:53)
[2018-12-17 09:15] LABS: Abs Immature Grans 0.04 k/cumm (0.0-0.09); Absolute Basophil Count 0.02 k/cumm (0.0-0.2); Absolute Eosinophil Count 0.05 k/cumm (0.0-0.7); Absolute Lymphocyte Count 0.99 k/cumm (1.2-3.4); Absolute Monocyte Count 0.36 k/cumm (0.11-0.7); Absolute Neutrophil Count 3.83 k/cumm (1.2-6.7); Basophils % 0.4; Eosinophils % 0.9; HCT 34.4 % (40.0-50.0); HGB 10.9 g/dL (13.5-17.5); Immature Grans % 0.8; Lymphocytes % 18.7; Mean Corp. HGB Concentration 31.7 g/dL (32.0-36.0); Mean Corpuscular Hemoglobin 28.8 pg (27.0-33.0); Mean Corpuscular Volume 90.8 fL (80-95); Mean Platelet Volume 10.7 fL (8.0-11.0); Monocytes % 6.8; Neutrophils % 72.4; Platelet Count 155 x1000/uL (130-400); RBC 3.79 m/cumm (4.50-6.00); RBC Distribution Width 18.3 % (11.8-14.1); White Blood Cell Count 5.29 k/cumm (4.4-10.8)
[2018-12-17 09:37] LABS: ALT 38 U/L (12-78); AST 23 U/L (15-37); Albumin 3.7 g/dL (3.4-5.0); Alkaline Phosphatase 101 U/L (46-116); Anion Gap 12.7 mmol/L (3-11); BUN 16 mg/dL (7-18); Bilirubin, Total 0.6 mg/dL (0.2-1.0); CO2 26.3 mmol/L (21.0-32.0); CREATININE 0.88 mg/dL (0.70-1.30); Calcium 9.2 mg/dL (8.5-10.1); Chloride 98 mmol/L (98-107); Glucose 420 mg/dL (70-100); Magnesium 1.7 mg/dL (1.8-2.4); Potassium 3.9 mmol/L (3.5-5.1); Sodium 137 mmol/L (136-145); Total Protein 7.8 g/dL (6.4-8.2)
[2018-12-18 13:22] LABS: CA 19-9 13197 U/mL (<35)
[2018-12-21] MEDS: Normal Saline Flush 10 ML SYR IVP (12:00)
[2018-12-21 12:51] LABS: ALT 27 U/L (12-78); AST 13 U/L (15-37); Albumin 3.1 g/dL (3.4-5.0); Alkaline Phosphatase 98 U/L (46-116); Anion Gap 10.2 mmol/L (3-11); BUN 13 mg/dL (7-18); Bilirubin, Total 0.5 mg/dL (0.2-1.0); CO2 25.8 mmol/L (21.0-32.0); Calcium 8.9 mg/dL (8.5-10.1); Chloride 100 mmol/L (98-107); Glucose 231 mg/dL (70-100); Magnesium 1.8 mg/dL (1.8-2.4); Potassium 3.4 mmol/L (3.5-5.1); Sodium 136 mmol/L (136-145); Total Protein 7.6 g/dL (6.4-8.2)
[2018-12-24] MEDS: Normal Saline Flush 10 ML SYR IVP (11:20)
[2018-12-24 11:36] LABS: HCT 31.8 % (40.0-50.0); HGB 10.1 g/dL (13.5-17.5); Mean Corp. HGB Concentration 31.8 g/dL (32.0-36.0); Mean Corpuscular Hemoglobin 28.9 pg (27.0-33.0); Mean Corpuscular Volume 90.9 fL (80-95); Mean Platelet Volume 10.5 fL (8.0-11.0); RBC Distribution Width 17.2 % (11.8-14.1); White Blood Cell Count 3.21 k/cumm (4.4-10.8)
[2018-12-24 11:40] LABS: Platelet Count 86 x1000/uL (130-400)
[2018-12-24 11:47] LABS: ALT 48 U/L (12-78); AST 33 U/L (15-37); Albumin 3.4 g/dL (3.4-5.0); Alkaline Phosphatase 136 U/L (46-116); Anion Gap 12.5 mmol/L (3-11); BUN 13 mg/dL (7-18); Bilirubin, Total 0.3 mg/dL (0.2-1.0); CO2 26.5 mmol/L (21.0-32.0); CREATININE 0.83 mg/dL (0.70-1.30); Calcium 9.4 mg/dL (8.5-10.1); Chloride 101 mmol/L (98-107); Glucose 243 mg/dL (70-100); Magnesium 1.3 mg/dL (1.8-2.4); Potassium 3.4 mmol/L (3.5-5.1); Sodium 140 mmol/L (136-145); Total Protein 7.7 g/dL (6.4-8.2)
[2018-12-24 12:25] LABS: Absolute Basophil Count 0.03 k/cumm (0.0-0.2); Absolute Lymphocyte Count 0.71 k/cumm (1.2-3.4); Absolute Monocyte Count 0.06 k/cumm (0.11-0.7); Absolute Neutrophil Count 2.12 k/cumm (1.2-6.7); Diff Comment Manual Differential; Polychromasia Present
== END 2018-12-30 23:59 | disposition home or self-care (01) ==
LOC: INF 01:37
PROVIDERS: Internal Medicine; PCP Nurse Practitioner Primary Care; Visit Provider Internal Medicine Hematology & Oncology
DX: C25.9 Malignant neoplasm of pancreas, unspecified (principal); C78.7 Secondary malignant neoplasm of liver and intrahepatic bile duct; Z45.2 Encounter for adjustment and management of vascular access device
CPT/HCPCS: 36591; 80048; 80053; 83735; 85025; 86301

== ENCOUNTER 2019-01-29 08:46 | Outpatient (RCR) | payer OTHER, SELFPAY | END 2019-01-30 23:59 | disposition home or self-care (01) | LOC: INF 08:46 | PROVIDERS: PCP Nurse Practitioner Primary Care; Visit Provider Internal Medicine Hematology & Oncology | DX: R69 Illness, unspecified (principal) | CPT/HCPCS: 36591 ==

== ENCOUNTER 2019-01-29 09:00 | Outpatient (RCR) | payer OTHER, SELFPAY ==
[2018-12-31] MEDS: Normal Saline Flush 10 ML SYR IVP (10:25)
[2018-12-31 10:53] LABS: Abs Immature Grans 0.04 k/cumm (0.0-0.09); Absolute Basophil Count 0.03 k/cumm (0.0-0.2); Absolute Eosinophil Count 0.11 k/cumm (0.0-0.7); Absolute Lymphocyte Count 0.99 k/cumm (1.2-3.4); Absolute Monocyte Count 0.34 k/cumm (0.11-0.7); Absolute Neutrophil Count 2.78 k/cumm (1.2-6.7); Basophils % 0.7; Eosinophils % 2.6; HCT 35.4 % (40.0-50.0); HGB 11.2 g/dL (13.5-17.5); Immature Grans % 0.9; Lymphocytes % 23.1; Mean Corp. HGB Concentration 31.6 g/dL (32.0-36.0); Mean Corpuscular Hemoglobin 29.2 pg (27.0-33.0); Mean Corpuscular Volume 92.4 fL (80-95); Mean Platelet Volume 10.5 fL (8.0-11.0); Monocytes % 7.9; Neutrophils % 64.8; Platelet Count 199 x1000/uL (130-400); RBC 3.83 m/cumm (4.50-6.00); RBC Distribution Width 17.6 % (11.8-14.1); White Blood Cell Count 4.29 k/cumm (4.4-10.8)
[2018-12-31 11:10] LABS: ALT 51 U/L (12-78); AST 35 U/L (15-37); Alkaline Phosphatase 126 U/L (46-116); BUN 17 mg/dL (7-18); Bilirubin, Total 0.5 mg/dL (0.2-1.0); CREATININE 0.93 mg/dL (0.70-1.30); Calcium 9.1 mg/dL (8.5-10.1); Chloride 100 mmol/L (98-107); Glucose 308 mg/dL (70-100); Magnesium 1.7 mg/dL (1.8-2.4); Potassium 4.1 mmol/L (3.5-5.1); Sodium 137 mmol/L (136-145)
[2019-01-01 10:55] LABS: CEA 7.1 ng/ml
[2019-01-01 15:02] LABS: CA 19-9 18117 U/mL (<35)
[2019-01-04] MEDS: Normal Saline Flush 10 ML SYR IVP (07:10)
[2019-01-04 07:41] LABS: Abs Immature Grans 0.01 k/cumm (0.0-0.09); Absolute Monocyte Count 0.05 k/cumm (0.11-0.7); Absolute Neutrophil Count 2.69 k/cumm (1.2-6.7); Eosinophils % 2.9; HCT 30.4 % (40.0-50.0); HGB 9.5 g/dL (13.5-17.5); Immature Grans % 0.3; Lymphocytes % 17.4; Mean Corp. HGB Concentration 31.3 g/dL (32.0-36.0); Mean Corpuscular Volume 92.7 fL (80-95); Mean Platelet Volume 9.9 fL (8.0-11.0); Monocytes % 1.4; Platelet Count 150 x1000/uL (130-400); RBC 3.28 m/cumm (4.50-6.00); RBC Distribution Width 16.8 % (11.8-14.1); White Blood Cell Count 3.45 k/cumm (4.4-10.8)
[2019-01-04 07:57] LABS: ALT 102 U/L (12-78); AST 55 U/L (15-37); Albumin 3.5 g/dL (3.4-5.0); Alkaline Phosphatase 116 U/L (46-116); BUN 18 mg/dL (7-18); Bilirubin, Total 0.5 mg/dL (0.2-1.0); CREATININE 0.74 mg/dL (0.70-1.30); Chloride 98 mmol/L (98-107); Glucose 220 mg/dL (70-100); Magnesium 1.3 mg/dL (1.8-2.4); Potassium 3.7 mmol/L (3.5-5.1); Sodium 137 mmol/L (136-145); Total Protein 7.3 g/dL (6.4-8.2)
[2019-01-04 08:00] LABS: Hemoglobin A1C 8.8 % (4.5-6.2)
[2019-01-04 08:08] LABS: Diff Comment RBC Morph Reviewed
[2019-01-04 08:09] LABS: Anisocytosis 2+; Poikilocytes 1+
[2019-01-06] MEDS: Normal Saline Flush 10 ML SYR IVP (07:10)
[2019-01-06 07:27] LABS: Abs Immature Grans 0.08 k/cumm (0.0-0.09); HCT 30.7 % (40.0-50.0); HGB 9.5 g/dL (13.5-17.5); Mean Corp. HGB Concentration 30.9 g/dL (32.0-36.0); Mean Corpuscular Hemoglobin 28.8 pg (27.0-33.0); Mean Platelet Volume 9.1 fL (8.0-11.0); Platelet Count 119 x1000/uL (130-400); RBC Distribution Width 16.8 % (11.8-14.1)
[2019-01-06 07:47] LABS: ALT 91 U/L (12-78); AST 38 U/L (15-37); Albumin 3.5 g/dL (3.4-5.0); Alkaline Phosphatase 132 U/L (46-116); Anion Gap 11.1 mmol/L (3-11); BUN 15 mg/dL (7-18); Bilirubin, Total 0.4 mg/dL (0.2-1.0); CO2 27.9 mmol/L (21.0-32.0); CREATININE 0.81 mg/dL (0.70-1.30); Chloride 99 mmol/L (98-107); Glucose 275 mg/dL (70-100); Magnesium 1.5 mg/dL (1.8-2.4); Potassium 3.8 mmol/L (3.5-5.1); Sodium 138 mmol/L (136-145); Total Protein 7.5 g/dL (6.4-8.2)
[2019-01-06 08:09] LABS: Absolute Eosinophil Count 0.05 k/cumm (0.0-0.7); Absolute Lymphocyte Count 0.45 k/cumm (1.2-3.4); Absolute Monocyte Count 0.13 k/cumm (0.11-0.7); Absolute Neutrophil Count 0.91 k/cumm (1.2-6.7); Anisocytosis 1+; Diff Comment Manual Differential; White Blood Cell Count 1.62 k/cumm (4.4-10.8)
[2019-01-06 08:10] LABS: Hypochromasia 1+; Microcytosis 1+; Poikilocytes 1+; Polychromasia Present
[2019-01-14 08:33] LABS: Abs Immature Grans 0.07 k/cumm (0.0-0.09); Absolute Basophil Count 0.01 k/cumm (0.0-0.2); Absolute Lymphocyte Count 0.68 k/cumm (1.2-3.4); Absolute Monocyte Count 0.17 k/cumm (0.11-0.7); Absolute Neutrophil Count 3.74 k/cumm (1.2-6.7); Basophils % 0.2; HCT 34.8 % (40.0-50.0); Immature Grans % 1.5; Lymphocytes % 14.6; Mean Corp. HGB Concentration 31.6 g/dL (32.0-36.0); Mean Corpuscular Hemoglobin 28.9 pg (27.0-33.0); Mean Corpuscular Volume 91.6 fL (80-95); Mean Platelet Volume 9.9 fL (8.0-11.0); Monocytes % 3.6; Neutrophils % 80.1; Platelet Count 186 x1000/uL (130-400); RBC Distribution Width 17.1 % (11.8-14.1); White Blood Cell Count 4.67 k/cumm (4.4-10.8)
[2019-01-14] MEDS: Normal Saline Flush 10 ML SYR IVP (08:33)
[2019-01-14 08:48] LABS: ALT 62 U/L (12-78); AST 38 U/L (15-37); Albumin 3.8 g/dL (3.4-5.0); Alkaline Phosphatase 176 U/L (46-116); Anion Gap 15.4 mmol/L (3-11); BUN 21 mg/dL (7-18); Bilirubin, Total 0.6 mg/dL (0.2-1.0); CO2 22.6 mmol/L (21.0-32.0); CREATININE 1.03 mg/dL (0.70-1.30); Calcium 9.3 mg/dL (8.5-10.1); Chloride 97 mmol/L (98-107); Glucose 413 mg/dL (70-100); Magnesium 1.5 mg/dL (1.8-2.4); Potassium 4.2 mmol/L (3.5-5.1); Sodium 135 mmol/L (136-145)
[2019-01-15 16:30] LABS: CA 19-9 32404 U/mL (<35)
[2019-01-18] MEDS: Normal Saline Flush 10 ML SYR IVP (07:58)
[2019-01-18 08:09] LABS: Abs Immature Grans 0.01 k/cumm (0.0-0.09); Absolute Basophil Count 0.01 k/cumm (0.0-0.2); Absolute Eosinophil Count 0.06 k/cumm (0.0-0.7); Absolute Lymphocyte Count 0.64 k/cumm (1.2-3.4); Absolute Monocyte Count 0.07 k/cumm (0.11-0.7); Absolute Neutrophil Count 2.88 k/cumm (1.2-6.7); Basophils % 0.3; Eosinophils % 1.6; HCT 31.5 % (40.0-50.0); HGB 9.6 g/dL (13.5-17.5); Immature Grans % 0.3; Lymphocytes % 17.4; Mean Corp. HGB Concentration 30.5 g/dL (32.0-36.0); Mean Corpuscular Hemoglobin 28.4 pg (27.0-33.0); Mean Corpuscular Volume 93.2 fL (80-95); Mean Platelet Volume 9.8 fL (8.0-11.0); Monocytes % 1.9; Neutrophils % 78.5; Platelet Count 154 x1000/uL (130-400); RBC 3.38 m/cumm (4.50-6.00); RBC Distribution Width 16.4 % (11.8-14.1); White Blood Cell Count 3.67 k/cumm (4.4-10.8)
[2019-01-18 08:24] LABS: ALT 95 U/L (12-78); AST 50 U/L (15-37); Albumin 3.4 g/dL (3.4-5.0); Alkaline Phosphatase 149 U/L (46-116); Anion Gap 11.8 mmol/L (3-11); BUN 14 mg/dL (7-18); Bilirubin, Total 0.5 mg/dL (0.2-1.0); CO2 27.2 mmol/L (21.0-32.0); CREATININE 0.74 mg/dL (0.70-1.30); Chloride 99 mmol/L (98-107); Glucose 270 mg/dL (70-100); Magnesium 1.6 mg/dL (1.8-2.4); Sodium 138 mmol/L (136-145); Total Protein 7.5 g/dL (6.4-8.2)
[2019-01-21] MEDS: Normal Saline Flush 10 ML SYR IVP (07:42)
[2019-01-21 07:48] LABS: Abs Immature Grans 0.22 k/cumm (0.0-0.09); HCT 31.7 % (40.0-50.0); HGB 9.8 g/dL (13.5-17.5); Mean Corp. HGB Concentration 30.9 g/dL (32.0-36.0); Mean Corpuscular Hemoglobin 28.8 pg (27.0-33.0); Mean Corpuscular Volume 93.2 fL (80-95); Mean Platelet Volume 10.4 fL (8.0-11.0); Platelet Count 116 x1000/uL (130-400); RBC Distribution Width 16.5 % (11.8-14.1); White Blood Cell Count 2.98 k/cumm (4.4-10.8)
[2019-01-21 08:02] LABS: ALT 70 U/L (12-78); AST 33 U/L (15-37); Albumin 3.4 g/dL (3.4-5.0); Alkaline Phosphatase 195 U/L (46-116); Anion Gap 11.8 mmol/L (3-11); BUN 18 mg/dL (7-18); Bilirubin, Total 0.4 mg/dL (0.2-1.0); CO2 26.2 mmol/L (21.0-32.0); CREATININE 0.89 mg/dL (0.70-1.30); Calcium 9.1 mg/dL (8.5-10.1); Chloride 100 mmol/L (98-107); Glucose 352 mg/dL (70-100); Magnesium 1.3 mg/dL (1.8-2.4); Sodium 138 mmol/L (136-145); Total Protein 7.4 g/dL (6.4-8.2)
[2019-01-21 08:11] LABS: Absolute Eosinophil Count 0.03 k/cumm (0.0-0.7); Absolute Monocyte Count 0.42 k/cumm (0.11-0.7); Absolute Neutrophil Count 1.76 k/cumm (1.2-6.7)
[2019-01-21 08:12] LABS: Anisocytosis 1+; Diff Comment Manual Differential; Hypochromasia 1+; Polychromasia Present
[2019-01-21 08:13] LABS: Poikilocytes 1+
[2019-01-22 12:29] LABS: CA 19-9 60363 U/mL (<35)
[2019-01-26] MEDS: Normal Saline Flush 10 ML SYR IVP (11:31)
[2019-01-26 11:49] LABS: Abs Immature Grans 0.08 k/cumm (0.0-0.09); Absolute Basophil Count 0.02 k/cumm (0.0-0.2); Absolute Eosinophil Count 0.06 k/cumm (0.0-0.7); Absolute Lymphocyte Count 0.77 k/cumm (1.2-3.4); Absolute Monocyte Count 0.49 k/cumm (0.11-0.7); Absolute Neutrophil Count 3.12 k/cumm (1.2-6.7); Basophils % 0.4; Eosinophils % 1.3; HCT 34.3 % (40.0-50.0); HGB 10.8 g/dL (13.5-17.5); Immature Grans % 1.8; Mean Corp. HGB Concentration 31.5 g/dL (32.0-36.0); Mean Corpuscular Hemoglobin 29.1 pg (27.0-33.0); Mean Corpuscular Volume 92.5 fL (80-95); Mean Platelet Volume 10.7 fL (8.0-11.0); Monocytes % 10.8; Neutrophils % 68.7; Platelet Count 157 x1000/uL (130-400); RBC 3.71 m/cumm (4.50-6.00); RBC Distribution Width 16.8 % (11.8-14.1); White Blood Cell Count 4.54 k/cumm (4.4-10.8)
[2019-01-26 12:08] LABS: ALT 71 U/L (16-63); AST 49 U/L (15-37); Albumin 3.7 g/dL (3.4-5.0); Alkaline Phosphatase 233 U/L (46-116); BUN 16 mg/dL (7-18); Bilirubin, Total 0.4 mg/dL (0.2-1.0); CREATININE 0.84 mg/dL (0.70-1.30); Calcium 9.2 mg/dL (8.5-10.1); Chloride 101 mmol/L (98-107); Glucose 198 mg/dL (70-100); Magnesium 1.4 mg/dL (1.8-2.4); Potassium 4.1 mmol/L (3.5-5.1); Sodium 140 mmol/L (136-145)
[2019-01-29] MEDS: Normal Saline Flush 10 ML SYR IVP (08:50)
[2019-01-29 09:25] LABS: Abs Immature Grans 0.04 k/cumm (0.0-0.09); Absolute Basophil Count 0.01 k/cumm (0.0-0.2); Absolute Eosinophil Count 0.01 k/cumm (0.0-0.7); Absolute Lymphocyte Count 0.79 k/cumm (1.2-3.4); Absolute Monocyte Count 0.26 k/cumm (0.11-0.7); Absolute Neutrophil Count 3.64 k/cumm (1.2-6.7); Basophils % 0.2; Eosinophils % 0.2; HCT 34.5 % (40.0-50.0); HGB 10.5 g/dL (13.5-17.5); Immature Grans % 0.8; Lymphocytes % 16.6; Mean Corp. HGB Concentration 30.4 g/dL (32.0-36.0); Mean Corpuscular Hemoglobin 28.1 pg (27.0-33.0); Mean Corpuscular Volume 92.2 fL (80-95); Mean Platelet Volume 10.1 fL (8.0-11.0); Monocytes % 5.5; Neutrophils % 76.7; Platelet Count 206 x1000/uL (130-400); RBC 3.74 m/cumm (4.50-6.00); RBC Distribution Width 16.7 % (11.8-14.1); White Blood Cell Count 4.75 k/cumm (4.4-10.8)
[2019-01-29 09:44] LABS: ALT 94 U/L (16-63); AST 66 U/L (15-37); Albumin 3.5 g/dL (3.4-5.0); Alkaline Phosphatase 260 U/L (46-116); Anion Gap 12.1 mmol/L (3-11); BUN 16 mg/dL (7-18); Bilirubin, Total 0.5 mg/dL (0.2-1.0); CO2 25.9 mmol/L (21.0-32.0); CREATININE 0.91 mg/dL (0.70-1.30); Calcium 8.8 mg/dL (8.5-10.1); Chloride 99 mmol/L (98-107); Glucose 406 mg/dL (70-100); Magnesium 1.5 mg/dL (1.8-2.4); Potassium 3.8 mmol/L (3.5-5.1); Sodium 137 mmol/L (136-145); Total Protein 7.8 g/dL (6.4-8.2)
== END 2019-01-30 23:59 | disposition home or self-care (01) ==
LOC: INF 09:00
PROVIDERS: PCP Nurse Practitioner Primary Care; Visit Provider Internal Medicine Hematology & Oncology
DX: C25.9 Malignant neoplasm of pancreas, unspecified (principal); C78.7 Secondary malignant neoplasm of liver and intrahepatic bile duct; Z45.2 Encounter for adjustment and management of vascular access device
CPT/HCPCS: 36591; 80053; 82378; 83036; 83735; 85025; 86301

== ENCOUNTER 2019-02-12 02:46 | Outpatient (RCR) | payer OTHER, SELFPAY ==
[2019-02-03] MEDS: Normal Saline Flush 10 ML SYR IVP (11:10)
[2019-02-03 11:57] LABS: ALT 161 U/L (16-63); AST 96 U/L (15-37); Albumin 3.1 g/dL (3.4-5.0); Alkaline Phosphatase 439 U/L (46-116); Anion Gap 8.1 mmol/L (3-11); BUN 12 mg/dL (7-18); Bilirubin, Total 0.9 mg/dL (0.2-1.0); CO2 25.9 mmol/L (21.0-32.0); CREATININE 0.89 mg/dL (0.70-1.30); Calcium 8.3 mg/dL (8.5-10.1); Chloride 98 mmol/L (98-107); Glucose 231 mg/dL (70-100); Magnesium 1.8 mg/dL (1.8-2.4); Potassium 3.5 mmol/L (3.5-5.1); Sodium 132 mmol/L (136-145); Total Protein 7.6 g/dL (6.4-8.2)
[2019-02-12] MEDS: Normal Saline Flush 10 ML SYR IVP (09:39)
[2019-02-12 09:40] LABS: Abs Immature Grans 0.02 k/cumm (0.0-0.09); Absolute Basophil Count 0.02 k/cumm (0.0-0.2); Absolute Eosinophil Count 0.04 k/cumm (0.0-0.7); Absolute Lymphocyte Count 0.59 k/cumm (1.2-3.4); Absolute Monocyte Count 0.38 k/cumm (0.11-0.7); Absolute Neutrophil Count 2.79 k/cumm (1.2-6.7); Basophils % 0.5; HGB 10.2 g/dL (13.5-17.5); Immature Grans % 0.5; Lymphocytes % 15.4; Mean Corpuscular Hemoglobin 28.3 pg (27.0-33.0); Mean Corpuscular Volume 94.4 fL (80-95); Mean Platelet Volume 10.2 fL (8.0-11.0); Monocytes % 9.9; Neutrophils % 72.7; Platelet Count 173 x1000/uL (130-400); White Blood Cell Count 3.84 k/cumm (4.4-10.8)
[2019-02-12 09:58] LABS: ALT 179 U/L (16-63); AST 219 U/L (15-37); Albumin 3.4 g/dL (3.4-5.0); Alkaline Phosphatase 923 U/L (46-116); Anion Gap 11.8 mmol/L (3-11); BUN 8 mg/dL (7-18); Bilirubin, Total 2.1 mg/dL (0.2-1.0); CO2 25.2 mmol/L (21.0-32.0); CREATININE 0.79 mg/dL (0.70-1.30); Calcium 8.9 mg/dL (8.5-10.1); Chloride 100 mmol/L (98-107); Glucose 260 mg/dL (70-100); Magnesium 1.6 mg/dL (1.8-2.4); Potassium 3.4 mmol/L (3.5-5.1); Sodium 137 mmol/L (136-145); Total Protein 7.7 g/dL (6.4-8.2)
[2019-02-15 14:35] LABS: CA 19-9 >70000 U/mL (<35)
== END 2019-02-22 23:59 | disposition home or self-care (01) ==
LOC: INF 02:46
PROVIDERS: PCP Nurse Practitioner Primary Care; Visit Provider Internal Medicine Hematology & Oncology
DX: C25.9 Malignant neoplasm of pancreas, unspecified (principal); C78.7 Secondary malignant neoplasm of liver and intrahepatic bile duct; Z45.2 Encounter for adjustment and management of vascular access device
CPT/HCPCS: 36591; 80053; 83735; 85025; 86301